=== PATIENT | male | born 1955 | race Caucasian/White ===

== ENCOUNTER 2017-04-06 16:49 | Inpatient (IN) ==
[2017-04-06] MEDS ORDERED: 0.9 % SODIUM CHLORIDE 1,000 ML IV ONE (17:38)
--- NOTE | 2017-04-06 17:53 | Emergency Department Note ---
Weakness HPI - General Chief complaint: Weakness Stated complaint: fall, increase weaknes and confusion Time Seen by Provider: 04/06/17 17:31 Source: patient, EMS Mode of arrival: EMS Limitations: no limitations - History of Present Illness HPI Narrative: 61-year-old male presents by EMS. He has Parkinson's disease. He was found on the kitchen floor of his home around 430 this evening and seems to have fallen around noon today. He has having a lot of falls recently and had a fall yesterday. He states he did not hit his head or lose consciousness. His states that he has been confused and having hallucinations where he is talking to someone that is not there. He has not been eating or drinking while he has been alone at home. He does not have a caregiver during the day while his is at work but his is going to try to get someone in to check up on him. He denies any pain at this time. 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 He denies any shortness of breath or chest pain. He is somewhat somnolent. He responds to commands. He is shaking as he usually does with Parkinson's disease. states she wants him to get checked out because she is concerned. No change in bowel or bladder habits. No cough or cold symptoms. No new change in medications. He does take carbidopa levodopa. - Related Data Home Medications Medication Instructions Recorded Confirmed amantadine HCl 100 mg tablet 100 mg PO QDAY tab 11/02/16 04/06/17 aspirin 81 mg tablet 81 mg PO QDAY 11/02/16 04/06/17 atenolol 50 mg tablet 100 mg PO QAM tab 11/02/16 04/06/17 budesonide 90 mcg/actuation breath 2 inh INHALATION .COMPLEX 11/02/16 04/06/17 activated powder inhaler insulin glargine 100 unit/mL 60 unit SUB-Q BID ml 11/02/16 04/06/17 subcutaneous solution losartan 100 1 tab PO QDAY 11/02/16 04/06/17 mg-hydrochlorothiazide 12.5 mg tablet metformin 500 mg tablet 1,000 mg PO BID 11/02/16 04/06/17 omeprazole 20 mg tablet,delayed 20 mg PO BID 11/02/16 04/06/17 release quetiapine 25 mg tablet 25 mg PO QPM tab 11/02/16 04/06/17 sertraline 100 mg tablet 100 mg PO QDAY 11/02/16 04/06/17 simvastatin 5 mg tablet 2.5 mg PO QPM tab 11/02/16 04/06/17 travoprost 0.004 % eye drops 1 drp OPHTHALMIC QPM 11/02/16 04/06/17 Carbidopa/Levodopa [Carbidopa-Levo 2 each PO TID 04/06/17 04/06/17 25-100 mg Odt] Donepezil [Aricept] 5 mg PO DAILY 04/06/17 04/06/17 Pregabalin [Lyrica] 300 mg PO HS 04/06/17 04/06/17 Torsemide [Demadex] 20 mg PO TID 04/06/17 04/06/17 Allergies Allergy/AdvReac Type Severity Reaction Status Date / Time terbinafine [From Lamisil] AdvReac Vomiting Verified 09/01/15 09:49 Review of Systems All systems ED: reviewed and negative except as stated. Past Medical History - Past Medical History Medical history: Reports: coronary artery disease, diabetes (on insulin long acting), hyperlipidemia, hypertension, other (parkinson's disease) Surgical history ED: Reports: other (Right below the knee amputation) Family history: Reports: non-contributory - Social History smoking status: Never smoker Physical Exam Limitations: no limitations General appearance: in no apparent distress, lethargic, obese Head: atraumatic Eye: Present: normal appearance, PERRL, EOMI. Absent: conjunctival injection ENT: mucous membranes dry, other (small amount of blood on his tongue and lips. thinks he bit his tongue during his fall) Neck: Present: normal inspection, full ROM Chest: Present: normal inspection, symmetric chest wall rise, other (bruise left lateral chest) Respiratory: Present: normal lung sounds bilaterally Cardiovascular: Present: regular rate, normal heart sounds Abdominal: Present: soft, other (obese). Absent: distention, tenderness, guarding : Present: other (Rash in folds of groin and below testicles. This looks like a candidal rash with erythema and satellite lesions) Extremities: Present: other (There are a few abrasions on the left and on the right extremity with some surrounding erythema but no signs of infection. Right [id number] amputation. No pedal edema.) Neurological: Present: alert, oriented X3, CN II-XII intact (Unable to perform all of the exam due to his Parkinson's) Psychiatric: Present: flat affect Skin: Present: warm, dry Course - Reevaluation(s) Reevaluation #1: On arrival the patient's blood sugar was 89. Lab called around 1920 and said his blood sugar was 33. He was then given some apple juice which he very much enjoyed. We also gave him about half a bag of dextrose 5%. His sugar came up to 129. He has been sitting comfortably and able to talk to us well throughout his stay. His labs came back abnormal for acute kidney injury from rhabdomyolysis. Vitals have been stable Time: 07:20 Reevaluation #2: Glucose stable. He will be staying Vital Signs Temperature 97.5 F 04/06/17 16:50 Pulse Rate 76 04/06/17 16:50 Respiratory Rate 22 04/06/17 16:50 Blood Pressure 157/104 04/06/17 16:50 Pulse Oximetry (%) 94 04/06/17 16:50 Temperature 97.5 F 04/06/17 16:50 Pulse Rate 66 04/06/17 20:32 Respiratory Rate 15 04/06/17 20:32 Blood Pressure 114/74 04/06/17 20:32 Pulse Oximetry (%) 98 04/06/17 20:32 Weakness - MDM Narrative Medical decision making narrative: Creatinine elevated at 2.7, BUN elevated 79, CK elevated at 7500. No significant white count. There is some evidence of a UTI on urine dip. He was given 1 g of Rocephin IV. - Lab Data Result diagrams: 04/06/17 17:52 04/06/17 17:52 Lab Results 04/06/17 04/06/17 04/06/17 Range/Units 17:28 17:52 17:52 WBC 10.8 (4.5-11.0) K/mcL RBC 4.47 L (4.50-5.90) M/mcL Hgb 12.1 L (13.5-16.5) g/dL Hct 36.7 L (41.0-55.0) % MCV 82.1 (80.0-100.0) fL MCH 27.2 (26.0-34.0) pg MCHC 33.1 (31.0-36.0) g/dL RDW 16.9 H (11.5-14.5) % Plt Count 139 L (140-440) K/mcL MPV 10.7 H (7.4-10.4) fL Total Counted 100 Seg Neutrophils % 83 H (38-78) % Band Neutrophils % Not Reportable Lymphocytes % 12 L (15-49) % Monocytes % (Manual) 4 (1-12) % Eosinophils % (Manual) 1 (0-7) % Platelet Estimate Decreased A (NORMAL) RBC Morphology Abnorm A (NORMAL) Anisocytosis 1+ A (NONE SEEN) VBG Lactic Acid (0.5-2.2) mmol/L Sodium 146 H (133-145) mmol/L Potassium 4.6 (3.3-5.1) mmol/L Chloride 103 (96-108) mmol/L Carbon Dioxide 24 (22-30) mmol/L Anion Gap 19.0 H (8-16) BUN 79 H (6-20) mg/dl Creatinine 2.7 H (0.7-1.2) mg/dl GFR Calculation 25 Glucose 33 L* (70-105) mg/dL Calcium 9.2 (8.6-10.4) mg/dl Total Bilirubin 0.8 (0.0-1.0) mg/dL AST 79 H (0-37) U/l ALT 27 (0-40) U/l Alkaline Phosphatase 104 (39-117) U/L Total Creatine Kinase (24-195) IU/L NT-Pro-B Natriuret Pep (0-125) pg/ml Total Protein 7.9 (5.9-8.4) gm/dL Albumin 4.3 (3.2-5.2) gm/dL Globulin 3.6 (2.2-3.7) gm/dL Albumin/Globulin Ratio 1.2 (1.0-2.3) Urine Color Yellow Urine Appearance Clear Urine pH 5.0 (5.0-9.0) Ur Specific [place] 1.016 (1.000-1.035) Urine Protein 30 A (NEG) mg/dL Urine Glucose (UA) Negative (NEG) mg/dL Urine Ketones Neg (NEG) mg/dL Urine Occult Blood 0.2 A (<0.03) mg/dL Urine Nitrate Neg (NEG) Urine Bilirubin Neg (NEG) mg/dL Urine Urobilinogen Neg (NEG) mg/dL Ur Leukocyte Esterase 25 A (NEG) /uL Urine RBC 1 (0-1) /hpf Urine WBC 6 H (0-4) /hpf Ur Squamous Epith Cells < 1 (0-4) /hpf Urine Bacteria 0 (0) /hpf Hyaline Casts 4 H (0-2) /lpf Urine Mucus Few (0) /hpf Ur Culture Indicated? Yes 04/06/17 04/06/17 04/06/17 Range/Units 17:52 17:52 18:54 WBC (4.5-11.0) K/mcL RBC (4.50-5.90) M/mcL Hgb (13.5-16.5) g/dL Hct (41.0-55.0) % MCV (80.0-100.0) fL MCH (26.0-34.0) pg MCHC (31.0-36.0) g/dL RDW (11.5-14.5) % Plt Count (140-440) K/mcL MPV (7.4-10.4) fL Total Counted Seg Neutrophils % (38-78) % Band Neutrophils % Lymphocytes % (15-49) % Monocytes % (Manual) (1-12) % Eosinophils % (Manual) (0-7) % Platelet Estimate (NORMAL) RBC Morphology (NORMAL) Anisocytosis (NONE SEEN) VBG Lactic Acid 0.9 (0.5-2.2) mmol/L Sodium (133-145) mmol/L Potassium (3.3-5.1) mmol/L Chloride (96-108) mmol/L Carbon Dioxide (22-30) mmol/L Anion Gap (8-16) BUN (6-20) mg/dl Creatinine (0.7-1.2) mg/dl GFR Calculation Glucose (70-105) mg/dL Calcium (8.6-10.4) mg/dl Total Bilirubin (0.0-1.0) mg/dL AST (0-37) U/l ALT (0-40) U/l Alkaline Phosphatase (39-117) U/L Total Creatine Kinase 7563 H (24-195) IU/L NT-Pro-B Natriuret Pep 8681.0 H (0-125) pg/ml Total Protein (5.9-8.4) gm/dL Albumin (3.2-5.2) gm/dL Globulin (2.2-3.7) gm/dL Albumin/Globulin Ratio (1.0-2.3) Urine Color Urine Appearance Urine pH (5.0-9.0) Ur Specific [place] (1.000-1.035) Urine Protein (NEG) mg/dL Urine Glucose (UA) (NEG) mg/dL Urine Ketones (NEG) mg/dL Urine Occult Blood (<0.03) mg/dL Urine Nitrate (NEG) Urine Bilirubin (NEG) mg/dL Urine Urobilinogen (NEG) mg/dL Ur Leukocyte Esterase (NEG) /uL Urine RBC (0-1) /hpf Urine WBC (0-4) /hpf Ur Squamous Epith Cells (0-4) /hpf Urine Bacteria (0) /hpf Hyaline Casts (0-2) /lpf Urine Mucus (0) /hpf Ur Culture Indicated? Disposition Pt seen by [employer]/PA only: Yes Clinical Impression: Rhabdomyolysis, Dehydration, Hypoglycemia Disposition: Xfer As Inpt ([facility]) Condition: Fair Referrals: Sada Bernard ARNP [Primary Care Provider] -
--- NOTE | 2017-04-06 17:59 | XRay Report ---
CLINICAL INFORMATION: Weakness COMPARISON: None. FINDINGS: The heart is mildly enlarged. Mediastinum and pulmonary vessels are normal. Lungs are clear. No effusions. IMPRESSION: Mild cardiomegaly. No acute disease Interpreted and Authenticated by: Abdelrahman Garcia 04/06/17
[2017-04-06 18:05] LABS: Appearance,Urine CLEAR; Bacteria,Urine 0 /hpf (0); Bilirubin,Urine NEG (NEG); Color,Urine YELLOW; Glucose,Urine (UA) NEGATIVE (NEG); Leukocyte Esterase,Urine 25 /uL (NEG); Mucus,Urine FEW /hpf (0); Nitrate,Urine NEG (NEG); Protein,Urine 30 mg/dL (NEG); Specific Gravity,Urine 1.016 (1.000-1.035); Urine Blood 0.2 mg/dL (<0.03); Urine Hyaline Cast 4 /lpf (0-2); Urine RBC 1 /hpf (0-1); Urine Squamous Epithelial Cell < 1 /hpf (0-4); Urine WBC 6 /hpf (0-4); Urobilinogen,Urine NEG (NEG)
[2017-04-06 18:30] LABS: Mean Cell Volume 82.1 fL (80.0-100.0); Mean Corpuscular HGB Conc 33.1 g/dL (31.0-36.0); Mean Corpuscular Hemoglobin 27.2 pg (26.0-34.0); Platelet Count 139 K/mcL (140-440); RBC 4.47 M/mcL (4.50-5.90); Red Cell Distribution Width 16.9 % (11.5-14.5)
[2017-04-06] MEDS ORDERED: cefTRIAXone 1 GM VIAL IV ONE (18:40)
[2017-04-06 18:57] LABS: ALT/SGPT 27 U/l (0-40); Albumin 4.3 gm/dL (3.2-5.2); Albumin/Globulin Ratio 1.2 (1.0-2.3); Alkaline Phosphatase 104 U/L (39-117); Blood Urea Nitrogen 79 mg/dl (6-20)
[2017-04-06 19:09] LABS: Creatine Kinase 7563 IU/L (24-195)
[2017-04-06 19:14] LABS: Anisocytosis 1+ (NONE SEEN); Eosinophils % (Manual) 1 % (0-7); Lymphocytes % 12 % (15-49); Monocytes % (Manual) 4 % (1-12); Platelet Estimate DECREASED (NORMAL); RBC Morphology ABNORM (NORMAL); Segmented Neutrophils % 83 % (38-78)
--- NOTE | 2017-04-06 21:43 | Internal Med History&Physical ---
Medical - H&P: [facility] Patient information: Note initiated : 04/06/17 at 9:38 pm Service Date, if different from initiated Date: [] Patient: Abdelrahman Henriquez 61 y/o M admitted on 04/06/17 for fall, increase weaknes and confusion. Chief Complaint: [] History of present illness: Mr. Henriquez is a 61 year old Male with h/o dementia, parkinsons disease (5-6 yrs) , wheel chair bound, presents to the ER today after 2-3 days of not feeling well at bedside who provided most of the history The patient was apparently in his usual health 3 days ago when his condition started to worsen, his oral intake declined, she noticed that he was having hallucinations (talking with grand child who was not there in the room). The patient has had several episodes of witnessed and unwitnessed falls. He had 2 falls yesterday and 2 falls today. When his returned home today she noticed that he was found face down on the floor. He denied any other issues or complaints, no pain in joints or head injury. He does have urinary issues, and can develop incontinence. NO abnormal seizure like movements noted. In the ER his labs showed mildly elevated wbc at 10.87, worsening renal function , creat of 2.7 (normal in past), low glucose of 33, elevated bun 79, CK 7563, elevated bnp, CXR showed cardiomegaly. no infiltrate ua suggesitive of uti The patient was therefore admitted to the hospital for further management. All systems: reviewed and no additional remarkable complaints except as stated ( denies any complaints, but wass sleeping during most of my questioning.) Medical - H&P: [facility] Medical history: Medical History Rhabdomyolysis (Acute) Dehydration (Acute) Hypoglycemia (Acute) History of echocardiogram (Chronic 06/27/16) History of diagnostic ultrasound (Chronic 06/27/16) Paresthesia (Chronic) Weakness (Chronic) Heartburn (Chronic) Hyperlipidemia (Chronic) Parkinson's disease (Chronic) Sciatica of left side (Chronic) HTN (hypertension) (Chronic) Diabetes mellitus, type II (Chronic) Depression (Chronic) GERD (gastroesophageal reflux disease) (Chronic) Pneumonia (Chronic) Diabetic peripheral neuropathy (Chronic) Mixed incontinence urge and stress (Chronic) Laceration (Chronic) Surgical history: Past Surgical History History of appendectomy (Chronic) Pertinent family history: Family History Other No pertinent family history dad with bladder cancer bother with lung cancer Social history: lives with non smoker very rare etoh denies recreational substance use. Medical - H&P: Meds Home Medications Medication Instructions Recorded Confirmed Type amantadine HCl 100 mg tablet 100 mg PO QDAY tab 11/02/16 04/06/17 History aspirin 81 mg tablet 81 mg PO QDAY 11/02/16 04/06/17 History atenolol 50 mg tablet 100 mg PO QAM tab 11/02/16 04/06/17 History budesonide 90 mcg/actuation breath 2 inh INHALATION .COMPLEX 11/02/16 04/06/17 History activated powder inhaler insulin glargine 100 unit/mL 60 unit SUB-Q BID ml 11/02/16 04/06/17 History subcutaneous solution losartan 100 1 tab PO QDAY 11/02/16 04/06/17 History mg-hydrochlorothiazide 12.5 mg tablet metformin 500 mg tablet 1,000 mg PO BID 11/02/16 04/06/17 History omeprazole 20 mg tablet,delayed 20 mg PO BID 11/02/16 04/06/17 History release quetiapine 25 mg tablet 25 mg PO QPM tab 11/02/16 04/06/17 History sertraline 100 mg tablet 100 mg PO QDAY 11/02/16 04/06/17 History simvastatin 5 mg tablet 2.5 mg PO QPM tab 11/02/16 04/06/17 History travoprost 0.004 % eye drops 1 drp OPHTHALMIC QPM 11/02/16 04/06/17 History Carbidopa/Levodopa [Carbidopa-Levo 2 each PO TID 04/06/17 04/06/17 History 25-100 mg Odt] Donepezil [Aricept] 5 mg PO DAILY 04/06/17 04/06/17 History Pregabalin [Lyrica] 300 mg PO HS 04/06/17 04/06/17 History Torsemide [Demadex] 20 mg PO TID 04/06/17 04/06/17 History Allergies Allergy/AdvReac Type Severity Reaction Status Date / Time terbinafine [From Lamisil] AdvReac Vomiting Verified 09/01/15 09:49 Medical - H&P: Exam - Constitutional Vitals: Temp Pulse Resp BP Pulse Ox 97.5 F 67 14 108/83 97 11/22/17 16:50 04/06/17 21:01 04/06/17 21:01 04/06/17 21:01 04/06/17 21:01 Exam: GENERAL: The patient is a well-developed, well-nourished in no apparent distress. Is alert and oriented x1. VITAL SIGNS: Reviewed and as noted elsewhere. HEENT: Head is normocephalic and atraumatic. Extraocular muscles are intact. Pupils are equal, round, and reactive to light. Nares appeared normal. Mouth appears any without lesions. Mucous membranes are dry, some hyperpigemtation of lips. NECK: Normal to inspection, Supple, No lymphadenopathy or thyromegaly. LUNGS: Air entry equal on both sides, no wheezing, crackles or rhonchi noted. No accessory muscles of respiration HEART: Regular rate and rhythm normal, S1 and S2 heard, no Gallop, S3 or Rub Noted, No Gross murmur heard. ABDOMEN: Soft, nontender, and nondistended. Positive bowel sounds. No hepatosplenomegaly was noted. EXTREMITIES: No cyanosis, clubbing, rash, lesions or edema. Right BKA noted. left leg has toe amputaiton? NEUROLOGIC: Cranial nerves II through XII are grossly intact. Motor and Sensory System Grossly Intact PSYCHIATRIC: Normal mood, flat affect. SKIN: jose luis inguinal rash, from ann-marie, overal skin has multiple hyperkeratotic lesions/ actinic keratosis, No ulceration or wounds noted, No jaundice noted. Medical - H&P: Reslt - Labs CBC & Chem 7: 04/06/17 17:52 04/06/17 17:52 Labs: Short CBC 04/06/17 Range/Units 17:52 WBC 10.8 (4.5-11.0) K/mcL Hgb 12.1 L (13.5-16.5) g/dL Hct 36.7 L (41.0-55.0) % Plt Count 139 L (140-440) K/mcL BMP 04/06/17 17:52 Sodium 146 H Potassium 4.6 Chloride 103 Carbon Dioxide 24 BUN 79 H Creatinine 2.7 H Glucose 33 L* Calcium 9.2 Cardiac Enzymes 04/06/17 Range/Units 17:52 Total Creatine Kinase 7563 H (24-195) IU/L Liver Function 04/06/17 Range/Units 17:52 Total Bilirubin 0.8 (0.0-1.0) mg/dL AST 79 H (0-37) U/l ALT 27 (0-40) U/l Alkaline Phosphatase 104 (39-117) U/L Albumin 4.3 (3.2-5.2) gm/dL Urine 04/06/17 Range/Units 17:28 Urine Color Yellow Urine Appearance Clear Urine pH 5.0 (5.0-9.0) Ur Specific [place] 1.016 (1.000-1.035) Urine Protein 30 A (NEG) mg/dL Urine Glucose (UA) Negative (NEG) mg/dL Medical - H&P: A/P - Narrative A/P Narrative: A/P acute kidney injury: due to poor intake, use of diuretic,s julieth inhibitors, hold both, IV fluids, not sure if elevated ck is playing a role, get renal sonogram, place [facility]. GEt urine studies if patient does not respond UTI: ua suggestive of UTI, pt has urinary urgency, was smelling of urine in the ER, place [facility], iv rocephin, await urine culture CK/ rhabdomyolysis: due to repeated falls , and lying on the floor, IV fluids for now, trend CK, monitor I/o try to keep urine output around 100cc/hr , given elevation of bnp. Repeated falls: due to UTI, dehydration as well as s/p bka and Parkinson disease (missed meds apparently today), get CT head as he is on asa and has had multiple unwitnessed falls, get pelvis x ray. DM: glucose low, due to use of Lantus and poor intake, repeat glucose is normal in ther er, monitor for now, hold Lantus use sliding scale insulin use [id number] solution for now, switch to ns only in AM once lantus effect is out of the patients body Parkinsonism disease: resume home medications and monitor Hallucinations/ Delirium: likely multifactorial, related to UTI, monitor for now treat underlying metabolic issues. DvT hep sq DNR Diabetic cardiac diet.
[2017-04-06] MEDS ORDERED: NALOXONE HCL 0.4 MG/ML VIAL IV PRN (22:03)
[2017-04-06] MEDS ORDERED: DEXTROSE 31 GM ORAL.SUSP PO PRN (22:03)
[2017-04-06] MEDS ORDERED: ONDANSETRON 4 MG/2 ML VIAL IV PRN (22:03)
[2017-04-06] MEDS ORDERED: oxyCODONE/APAP 5/325MG TABLET PO PRN (22:03)
[2017-04-06] MEDS ORDERED: ACETAMINOPHEN 325 MG TABLET PO PRN (22:03)
[2017-04-06] MEDS ORDERED: DEXTROSE 50% 50 ML VIAL IV PRN (22:03)
[2017-04-06] MEDS: INSULIN LISPRO 1 UNIT/0.01 ML UNIT SQ SCH (22:15)
[2017-04-07] MEDS: TRAVOPROST OPHTH DROPS BOTTLE 2.5ML OU SCH ×2 (00:23→20:46)
[2017-04-07] MEDS: PREGABALIN 150 MG CAPSULE PO SCH ×2 (00:40→20:50)
[2017-04-07] MEDS: HEPARIN 5,000 UNIT/ML VIAL SQ SCH ×3 (00:40→20:45)
[2017-04-07] MEDS: SIMVASTATIN 10 MG TABLET PO SCH ×2 (00:41→20:44)
[2017-04-07] MEDS: CARBIDOPA/LEVODOPA 25/100 TABLET PO SCH ×4 (00:41→20:50)
[2017-04-07] MEDS: QUEtiapine 25 MG TABLET PO SCH ×2 (00:41→20:46)
[2017-04-07] MEDS: IPRATROPIUM/ALBUTEROL 3 ML AMPUL.NEB NEB SCH ×4 (00:42→19:18)
[2017-04-07] MEDS: DEXTROSE 5%-NS 1,000 ML IV SCH ×3 (00:42→07:29)
[2017-04-07 05:52] LABS: Basophils # (Auto) 0 K/mcL (0.0-0.3); Basophils % (Auto) 0.4 % (0.0-2.0); Eosinophils # (Auto) 0.1 K/mcL (0.0-0.7); Eosinophils % (Auto) 1.3 % (0.0-7.0); Granulocytes % (Auto) 75.5 % (38.0-78.0); Lymphocytes # (Auto) 0.9 K/mcL (1.5-4.8); Lymphocytes % (Auto) 13.8 % (15.5-49.0); Mean Cell Volume 82.4 fL (80.0-100.0); Mean Corpuscular HGB Conc 33.5 g/dL (31.0-36.0); Mean Corpuscular Hemoglobin 27.6 pg (26.0-34.0); Monocytes # (Auto) 0.6 K/mcL (0.1-0.9); Platelet Count 107 K/mcL (140-440); RBC 3.97 M/mcL (4.50-5.90); Red Cell Distribution Width 16.9 % (11.5-14.5)
[2017-04-07 06:04] LABS: ALT/SGPT < 5 U/l (0-40); Albumin 3.8 gm/dL (3.2-5.2); Albumin/Globulin Ratio 1.1 (1.0-2.3); Alkaline Phosphatase 96 U/L (39-117); Bilirubin,Direct < 0.2 mg/dL (0.0-0.3); Blood Urea Nitrogen 72 mg/dl (6-20); Gamma Glutamyl Transpeptidase 29 U/L (8-61); Magnesium 2.8 mg/dL (1.6-2.5); Uric Acid 14.8 mg/dL (2.5-8.0)
[2017-04-07] MEDS: PANTOPRAZOLE 40 MG TABLET PO SCH (07:20)
[2017-04-07] MEDS: INSULIN LISPRO 1 UNIT/0.01 ML UNIT SQ SCH ×4 (07:26→20:45)
--- NOTE | 2017-04-07 07:27 | Cat Scan Report ---
CLINICAL INFORMATION: Trauma COMPARISON: None. TECHNIQUE: 2.5 mm helical slices were obtained in the skull base to vertex. Following reconstruction, axial reformatted images were reviewed at bone and parenchymal windows. The exam was performed using radiation dose optimization techniques including, but not limited to, automated exposure control, adjustment of the mA and/or kV according to patient size and use of iterative reconstruction technique. FINDINGS: The ventricles, sulci, fissures, and cisterns are symmetrically enlarged compatible with mild atrophy - no extra-axial fluid collection or masses appreciated. Patchy chronic ischemic changes are noted in deep cerebral white matter. No intracerebral hemorrhage, mass effect edema, or other acute finding. Bone windows show no osseous abnormality. Moderate cerumen is noted in both external auditory meatus regions. IMPRESSION: Mild atrophy and chronic ischemic changes in the deep cerebral white matter. There is no hemorrhage or other acute intracerebral abnormality. Interpreted and Authenticated by: Abdelrahman Garcia 04/07/17
[2017-04-07] MEDS ORDERED: 0.9 % SODIUM CHLORIDE 1,000 ML IV ONE (07:32)
--- NOTE | 2017-04-07 07:36 | Cat Scan Report ---
CLINICAL INFORMATION: Trauma COMPARISON: None. TECHNIQUE: 2.5 mm helical slices were obtained from the mid L4 through the subtrochanteric regions. Following reconstruction, 2.5 mm sagittal, coronal and axial reformations were processed. The exam was reviewed in bone and soft tissue windows. The exam was performed using radiation dose optimization techniques including, but not limited to, automated exposure control, adjustment of mA and/or kV according to patient size and use of iterative reconstruction technique. FINDINGS: There is no fracture or other significant osseous abnormality. There is only minimal degenerative change of both SI and hip joints with prominent bridging osteophyte in the anterior left SI joint. Urinary bladder, prostate, seminal vesicles and visualized bowel are normal. There is no free air, free fluid or abnormally enlarged lymph nodes. There is a 15 mm cyst in the left false pelvis. Muscle and fascial planes are unremarkable IMPRESSION: 1. No fracture or other significant abnormality Interpreted and Authenticated by: Abdelrahman Garcia 04/07/17
[2017-04-07] MEDS ORDERED: PNEUMOCOCCAL 23-VAL P-SAC VAC 0.5 ML VIAL IM ONE (10:00)
[2017-04-07] MEDS ORDERED: FLU VACC QS2017-18 36MOS UP/PF 60 MCG/0.5 ML SYRINGE IM ONE (10:00)
[2017-04-07] MEDS: SERTRALINE 100 MG TABLET PO SCH (10:35)
[2017-04-07] MEDS: ASPIRIN 81 MG TAB.CHEW PO SCH (10:35)
[2017-04-07] MEDS: ATENOLOL 50 MG TABLET PO SCH (10:35)
[2017-04-07] MEDS: DONEPEZIL 10 MG TABLET PO SCH (10:35)
[2017-04-07] MEDS: AMANTADINE HCL 100 MG CAPSULE PO SCH (10:35)
[2017-04-07] MEDS: BUDESONIDE 1 PUFF INHALER INH SCH ×2 (10:42→20:46)
[2017-04-07] MEDS: cefTRIAXone 1 GM VIAL IV SCH (10:42)
--- NOTE | 2017-04-07 13:09 | Internal Med Progress Note ---
Medical - PN: Subj Patient information: Note initiated : 04/07/17 at 12:57 pm Service Date, if different from initiated Date: [] Patient: Abdelrahman Henriquez 61 y/o M admitted on 04/06/17 for fall, increase weaknes and confusion. Chief Complaint: [] Interval history: Mr. Henriquez is a 61 year old Male with h/o dementia, parkinsons disease (5-6 yrs) , wheel chair bound, presents to the ER today after 2-3 days of not feeling well at bedside who provided most of the history The patient was apparently in his usual health 3 days ago when his condition started to worsen, his oral intake declined, she noticed that he was having hallucinations (talking with grand child who was not there in the room). The patient has had several episodes of witnessed and unwitnessed falls. He had 2 falls yesterday and 2 falls today. When his returned home today she noticed that he was found face down on the floor. He denied any other issues or complaints, no pain in joints or head injury. He does have urinary issues, and can develop incontinence. NO abnormal seizure like movements noted. In the ER his labs showed mildly elevated wbc at 10.87, worsening renal function , creat of 2.7 (normal in past), low glucose of 33, elevated bun 79, CK 7563, elevated bnp, CXR showed cardiomegaly. no infiltrate ua suggesitive of uti The patient was therefore admitted to the hospital for further management. Apr 07 patient seen examined no acute overnight issues, labs this AM show worsening CK, IV bolus saline given recheck this afternoon. creat improving pt mental status much better, sitting comfortably in chair, answered questions, did not remember much of last night, thinks his has left him othewise denies any acute complaints. Was able to eat his breakfast. CT head and CT pelvis neg for acute pathology Pertinent ROS: Denies headache, dizziness Denies chest pain, palpitations Denies cough or shortness of breath Denies abdominal pain, nausea or vomiting. - Constitutional Vitals: Vital Signs Temp Pulse Resp BP Pulse Ox 98.4 F 78 16 103/85 96 04/07/17 11:56 04/07/17 11:56 04/07/17 11:56 04/07/17 11:56 04/07/17 11:56 Period Temp Pulse Resp BP Sys/Leung Pulse Ox Last 24 Hr 96.8 F-99.2 F 60-78 14-22 103-159/61-107 92-100 Intake and Output 04/06/17 04/07/17 04/07/17 21:59 05:59 13:59 Intake Total 1000 / 1000 530 / 530 1000 / 1000 Output Total 1001 / 1001 400 / 400 Balance 1000 / 1000 -471 / -471 600 / 600 Weight 232 lb 232 lb Intake & Output: Intake & Output 04/06/17 04/07/17 04/07/17 21:59 05:59 13:59 Intake Total 1000 / 1000 530 / 530 1000 / 1000 Output Total 1001 / 1001 400 / 400 Balance 1000 / 1000 -471 / -471 600 / 600 Weight 232 lb 232 lb Intake: IV 1000 / 1000 1000 / 1000 Sodium Chloride 0.9% 1,000 ml @ 1000 / 1000 Wide Open IV BOLUS ONE Rx#: [id number] Dextrose 5%-Ns IV Solution 1, 1000 / 1000 000 ml @ 125 mls/hr IV .Q8H [facility] Rx#:[id number] Oral 530 / 530 Output: Urine Catheter Amount 1000 / 1000 400 / 400 # of times incontinent of urine Other: Meal peanutbutter sandwich Percent of Meal Consumed 100% Feeding Ability Assist with Tray Set Up Exam: Constitutional; Afebrile, cooperative, alert, not in distress. Eyes- No icterus, , No periorbital swelling Ears- Ext ear normal, hearing normal to conversation. Neck- Midline trachea, supple Respiratory system: Air Entry equal on both sides, No crackles or wheezing, no rhonchi. CVS- Rate rhythm regular, S1,S2 heard, no gallop, no rub. 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 has some tremors from parkinsons Medical - PN: Obj Da - Labs CBC & Chem 7: 04/07/17 03:31 04/07/17 03:31 Labs: Abnormal Lab Results 04/07/17 04/07/17 04/07/17 03:31 03:31 03:31 RBC 3.97 L Hgb 11.0 L Hct 32.7 L RDW 16.9 H Plt Count 107 L MPV 11.1 H Lymph % (Auto) 13.8 L Lymph # (Auto) 0.9 L Seg Neutrophils % Lymphocytes % Platelet Estimate RBC Morphology Anisocytosis Sodium Anion Gap BUN 72 H Creatinine 2.4 H Glucose Uric Acid 14.8 H Phosphorus 4.6 H Magnesium 2.8 H AST 121 H Lactate Dehydrogenase 593 H Total Creatine Kinase 94726 H NT-Pro-B Natriuret Pep Triglycerides 204 H Urine Protein Urine Occult Blood Ur Leukocyte Esterase Urine WBC Hyaline Casts 04/06/17 04/06/17 04/06/17 17:52 17:52 17:52 RBC Hgb Hct RDW Plt Count MPV Lymph % (Auto) Lymph # (Auto) Seg Neutrophils % Lymphocytes % Platelet Estimate RBC Morphology Anisocytosis Sodium 146 H Anion Gap 19.0 H BUN 79 H Creatinine 2.7 H Glucose 33 L* Uric Acid Phosphorus Magnesium AST 79 H Lactate Dehydrogenase Total Creatine Kinase 7563 H NT-Pro-B Natriuret Pep 8681.0 H Triglycerides Urine Protein Urine Occult Blood Ur Leukocyte Esterase Urine WBC Hyaline Casts 04/06/17 04/06/17 17:52 17:28 RBC 4.47 L Hgb 12.1 L Hct 36.7 L RDW 16.9 H Plt Count 139 L MPV 10.7 H Lymph % (Auto) Lymph # (Auto) Seg Neutrophils % 83 H Lymphocytes % 12 L Platelet Estimate Decreased A RBC Morphology Abnorm A Anisocytosis 1+ A Sodium Anion Gap BUN Creatinine Glucose Uric Acid Phosphorus Magnesium AST Lactate Dehydrogenase Total Creatine Kinase NT-Pro-B Natriuret Pep Triglycerides Urine Protein 30 A Urine Occult Blood 0.2 A Ur Leukocyte Esterase 25 A Urine WBC 6 H Hyaline Casts 4 H Meds: Medications Acetaminophen (Tylenol) 650 mg PO Q6HP PRN PRN Reason: PAIN/FEVER > 101 Albuterol/Ipratropium (Duoneb) 3 ml NEB Q6HRT [facility] Last Admin: 04/07/17 07:08 Dose: 3 ml Amantadine HCl (Amantadine) 100 mg PO QAM [facility] Last Admin: 04/07/17 10:35 Dose: 100 mg Aspirin (Aspirin) 81 mg PO DAILY [facility] Last Admin: 04/07/17 10:35 Dose: 81 mg Atenolol (Tenormin) 100 mg PO DAILY [facility] Last Admin: 04/07/17 10:35 Dose: 100 mg Budesonide (Pulmicort) 2 puff INH BID [facility] Last Admin: 04/07/17 10:42 Dose: Not Given Carbidopa/Levodopa (Sinemet 25/100) 2 tab PO TID [facility] Last Admin: 04/07/17 10:35 Dose: 2 tab Ceftriaxone Sodium (Rocephin) 1 gm IV Q24H [facility] Last Admin: 04/07/17 10:42 Dose: 1 gm Dextrose (Dextrose 50%) 0 ml IV UD PRN PRN Reason: Hypoglycemia Diagnostic Test (Pha) (Accu-Chek) 1 each FS ACHS [facility] Last Admin: 04/07/17 11:42 Dose: 1 each Donepezil HCl (Aricept) 5 mg PO DAILY [facility] Last Admin: 04/07/17 10:35 Dose: 5 mg Glucose (Insta-Glucose) 15 gm PO PRN PRN PRN Reason: Hypoglycemia Heparin Sodium (Porcine) (Heparin) 5,000 unit SQ Q12 [facility] Last Admin: 04/07/17 10:35 Dose: 5,000 unit Dextrose/Sodium Chloride (Dextrose 5%-Ns Iv Solution) 1,000 mls @ 125 mls/hr IV .Q8H [facility] Last Admin: 04/07/17 07:29 Dose: 125 mls/hr Insulin Human Lispro (Humalog) 0 unit SQ [facility] PRN Reason: Protocol Last Admin: 04/07/17 12:16 Dose: 3 unit Naloxone HCl (Narcan) 0.1 mg IV Q2MIN PRN PRN Reason: Opiate Reversal Ondansetron HCl (Zofran) 4 mg IV Q4HP PRN PRN Reason: Nausea And Vomiting Oxycodone/Acetaminophen (Percocet 5-325 Mg) 1 tab PO Q4HP PRN PRN Reason: PAIN LEVEL 3-6 Pantoprazole Sodium (Protonix) 40 mg PO QAMAC [facility] Last Admin: 04/07/17 07:20 Dose: 40 mg Pregabalin (Lyrica) 300 mg PO HS [facility] Last Admin: 04/07/17 00:40 Dose: 300 mg Quetiapine Fumarate (Seroquel) 25 mg PO QPM [facility] Last Admin: 04/07/17 00:41 Dose: 25 mg Sertraline HCl (Zoloft) 100 mg PO QDAY [facility] Last Admin: 04/07/17 10:35 Dose: 100 mg Simvastatin (Zocor) 2.5 mg PO HS [facility] Last Admin: 04/07/17 00:41 Dose: 2.5 mg Travoprost (Travatan Z Ophth Drops) 1 gtt OU QPM [facility] Last Admin: 04/07/17 00:23 Dose: Not Given Medical - PN: A/P - Time Spent With Patient Total time spent is greater than 50% in coordination of care (as documented) at patient's floor/unit and/or counseling patient: - Narrative A/P Narrative: A/P acute kidney injury: due to poor intake, use of diuretic,s julieth inhibitors, on IVF, hold nephrotoxic meds, renal function improving slowly, good urine output so far. UTI: ua suggestive of UTI, pt has urinary urgency, was smelling of urine in the ER, place adams, iv rocephin, await urine culture CK/ rhabdomyolysis: due to repeated falls , and lying on the floor, IV fluids for now, trend CK, CK worse this AM, give another saline bolus, recheck this PM , pt has good urine output so far. Repeated falls: due to UTI, dehydration as well as s/p bka and Parkinson disease (missed meds apparently today), PT/ OT eval DM: glucose better now, tolerating po well, d/c d5ns and swtich to NS only, sliding scale insulin for now, resume home lantus as appropriate. Parkinsonism disease: resume home medications and monitor Hallucinations/ Delirium: likely multifactorial, related to UTI, monitor for now treat underlying metabolic issues, has some paranoid features this AM, will see if improves, could be underying demetia/ parkinsons related. . DvT hep sq DNR Diabetic cardiac diet. Medical - PN: Qual - VTE Deep Vein Thrombosis/Pulmonary Embolism Present on Admission: No
[2017-04-07 14:24] LABS: Blood Urea Nitrogen 61 mg/dl (6-20)
[2017-04-07 14:33] LABS: Creatine Kinase 14239 IU/L (24-195)
[2017-04-07] MEDS: 0.9 % SODIUM CHLORIDE 1,000 ML IV SCH ×2 (15:18→23:00)
--- NOTE | 2017-04-07 15:22 | Ultrasound Report ---
CLINICAL INFORMATION: Renal failure COMPARISON: None. FINDINGS: Both kidneys are normal and symmetric in size, position and configuration: The right is 12.2 x 6 cm and the left is 12 x 6 cm. Renal echotexture is mildly elevated compatible with medical renal disease. No solid/cystic lesions or evidence of hydronephrosis. Mayo catheter is in place decompressing the urinary bladder - no gross abnormalities IMPRESSION: Elevated renal parenchymal echotexture compatible with medical renal disease Interpreted and Authenticated by: Abdelrahman Garcia 04/07/17
[2017-04-07] MEDS ORDERED: cefTRIAXone 1 GM in DEXTROSE 5% IN WATER 50 ML IV SCH (20:15)
[2017-04-08] MEDS: IPRATROPIUM/ALBUTEROL 3 ML AMPUL.NEB NEB SCH ×4 (01:16→18:37)
[2017-04-08 06:13] LABS: ALT/SGPT 6 U/l (0-40); Albumin 3.4 gm/dL (3.2-5.2); Albumin/Globulin Ratio 1.1 (1.0-2.3); Alkaline Phosphatase 97 U/L (39-117); Bilirubin,Direct < 0.2 mg/dL (0.0-0.3); Blood Urea Nitrogen 47 mg/dl (6-20); Gamma Glutamyl Transpeptidase 34 U/L (8-61); Magnesium 2.5 mg/dL (1.6-2.5); Uric Acid 11.1 mg/dL (2.5-8.0)
[2017-04-08 06:26] LABS: Basophils # (Auto) 0 K/mcL (0.0-0.3); Basophils % (Auto) 0.8 % (0.0-2.0); Eosinophils # (Auto) 0.1 K/mcL (0.0-0.7); Eosinophils % (Auto) 1.7 % (0.0-7.0); Granulocytes % (Auto) 55.9 % (38.0-78.0); Lymphocytes # (Auto) 1.4 K/mcL (1.5-4.8); Lymphocytes % (Auto) 29.7 % (15.5-49.0); Mean Cell Volume 83.8 fL (80.0-100.0); Mean Corpuscular HGB Conc 33.3 g/dL (31.0-36.0); Mean Corpuscular Hemoglobin 27.9 pg (26.0-34.0); Monocytes # (Auto) 0.5 K/mcL (0.1-0.9); Monocytes % (Auto) 11.9 % (1.0-12.0); Platelet Count 85 K/mcL (140-440); RBC 3.57 M/mcL (4.50-5.90); Red Cell Distribution Width 17.1 % (11.5-14.5)
[2017-04-08] MEDS: 0.9 % SODIUM CHLORIDE 1,000 ML IV SCH ×2 (07:07→18:13)
[2017-04-08] MEDS: INSULIN LISPRO 1 UNIT/0.01 ML UNIT SQ SCH ×4 (07:08→20:59)
[2017-04-08] MEDS: PANTOPRAZOLE 40 MG TABLET PO SCH (07:33)
[2017-04-08] MEDS: DONEPEZIL 10 MG TABLET PO SCH (08:59)
[2017-04-08] MEDS: AMANTADINE HCL 100 MG CAPSULE PO SCH (08:59)
[2017-04-08] MEDS: SERTRALINE 100 MG TABLET PO SCH (09:00)
[2017-04-08] MEDS: CARBIDOPA/LEVODOPA 25/100 TABLET PO SCH ×3 (09:00→20:16)
[2017-04-08] MEDS: ASPIRIN 81 MG TAB.CHEW PO SCH (09:00)
[2017-04-08] MEDS: ATENOLOL 50 MG TABLET PO SCH (09:00)
[2017-04-08] MEDS: HEPARIN 5,000 UNIT/ML VIAL SQ SCH ×2 (09:00→20:17)
[2017-04-08] MEDS: cefTRIAXone 1 GM VIAL IV SCH (09:35)
[2017-04-08] MEDS ORDERED: QUEtiapine 25 MG TABLET PO SCH (09:36)
--- NOTE | 2017-04-08 09:41 | Internal Med Progress Note ---
Medical - PN: Subj Patient information: Note initiated : 04/08/17 at 9:36 am Service Date, if different from initiated Date: [] Patient: Abdelrahman Henriquez 61 y/o M admitted on 04/06/17 for fall, increase weaknes and confusion. Chief Complaint: [] Interval history: Mr. Henriquez is a 61 year old Male with h/o dementia, parkinsons disease (5-6 yrs) , wheel chair bound, presents to the ER today after 2-3 days of not feeling well at bedside who provided most of the history The patient was apparently in his usual health 3 days ago when his condition started to worsen, his oral intake declined, she noticed that he was having hallucinations (talking with grand child who was not there in the room). The patient has had several episodes of witnessed and unwitnessed falls. He had 2 falls yesterday and 2 falls today. When his returned home today she noticed that he was found face down on the floor. He denied any other issues or complaints, no pain in joints or head injury. He does have urinary issues, and can develop incontinence. NO abnormal seizure like movements noted. In the ER his labs showed mildly elevated wbc at 10.87, worsening renal function , creat of 2.7 (normal in past), low glucose of 33, elevated bun 79, CK 7563, elevated bnp, CXR showed cardiomegaly. no infiltrate ua suggesitive of uti The patient was therefore admitted to the hospital for further management. Apr 07 patient seen examined no acute overnight issues, labs this AM show worsening CK, IV bolus saline given recheck this afternoon. creat improving pt mental status much better, sitting comfortably in chair, answered questions, did not remember much of last night, thinks his has left him othewise denies any acute complaints. Was able to eat his breakfast. CT head and CT pelvis neg for acute pathology Apr 08 patient seen examined, sitting comfortably in the chair has no acute concerns still has significant hallucinations, some one trying to kill him? watching ghosts as in cartoons, his bed taking him for a ride Has no self harm feelins at this time Plan to increase dose of seroquel to 50qpm and see how he does his creat is trending down, ck is at 11K today, He is tolerating IV well Pertinent ROS: Denies headache, dizziness Denies chest pain, palpitations Denies cough or shortness of breath Denies abdominal pain, nausea or vomiting. - Constitutional Vitals: Vital Signs Temp Pulse Resp BP Pulse Ox 96.8 F L 71 18 138/79 99 04/08/17 06:35 04/08/17 04:00 04/08/17 06:35 04/08/17 06:35 04/08/17 06:35 Period Temp Pulse Resp BP Sys/Leung Pulse Ox Last 24 Hr 96.8 F-98.5 F 69-78 16-20 103-138/56-89 96-100 Intake and Output 04/07/17 04/08/17 04/08/17 21:59 05:59 13:59 Intake Total 1327 / 1327 963 / 963 1000 / 1000 Output Total 600 / 600 1050 / 1050 Balance 727 / 727 -87 / -87 1000 / 1000 Weight 240 lb Intake & Output: Intake & Output 04/07/17 04/08/17 04/08/17 21:59 05:59 13:59 Intake Total 1327 / 1327 963 / 963 1000 / 1000 Output Total 600 / 600 1050 / 1050 Balance 727 / 727 -87 / -87 1000 / 1000 Weight 240 lb Intake: IV 977 / 977 963 / 963 1000 / 1000 Sodium Chloride 0.9% 1,000 ml @ 963 / 963 1000 / 1000 125 mls/hr IV .Q8H [facility] Rx#: [id number] Oral 350 / 350 Output: Urine Catheter Amount 600 / 600 1050 / 1050 Other: Meal Dinner Percent of Meal Consumed 100% Exam: Constitutional; Afebrile, cooperative, alert, not in distress. Eyes- No icterus, , No periorbital swelling Ears- Ext ear normal, hearing normal to conversation. Neck- Midline trachea, supple Respiratory system: Air Entry equal on both sides, No crackles or wheezing, no rhonchi. CVS- Rate rhythm regular, S1,S2 heard, no gallop, no rub. 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 Medical - PN: Obj Da - Labs CBC & Chem 7: 04/08/17 03:35 04/08/17 03:35 Labs: Abnormal Lab Results 04/08/17 04/08/17 04/08/17 03:35 03:35 03:35 RBC 3.57 L Hgb 10.0 L Hct 29.9 L RDW 17.1 H Plt Count 85 L MPV 11.2 H Lymph % (Auto) Lymph # (Auto) 1.4 L Seg Neutrophils % Lymphocytes % Platelet Estimate RBC Morphology Anisocytosis Sodium Carbon Dioxide 21 L Anion Gap BUN 47 H Creatinine 1.9 H Glucose 145 H Uric Acid 11.1 H Calcium 8.2 L Phosphorus Magnesium AST 108 H Lactate Dehydrogenase 516 H Total Creatine Kinase 94222 H NT-Pro-B Natriuret Pep Triglycerides 331 H Urine Protein Urine Occult Blood Ur Leukocyte Esterase Urine WBC Hyaline Casts 04/07/17 04/07/17 04/07/17 13:23 03:31 03:31 RBC Hgb Hct RDW Plt Count MPV Lymph % (Auto) Lymph # (Auto) Seg Neutrophils % Lymphocytes % Platelet Estimate RBC Morphology Anisocytosis Sodium Carbon Dioxide 20 L Anion Gap BUN 61 H 72 H Creatinine 2.0 H 2.4 H Glucose 137 H Uric Acid 14.8 H Calcium 8.0 L Phosphorus 4.6 H Magnesium 2.8 H AST 121 H Lactate Dehydrogenase 593 H Total Creatine Kinase 76945 H 91716 H NT-Pro-B Natriuret Pep Triglycerides 204 H Urine Protein Urine Occult Blood Ur Leukocyte Esterase Urine WBC Hyaline Casts 04/07/17 04/06/17 04/06/17 03:31 17:52 17:52 RBC 3.97 L Hgb 11.0 L Hct 32.7 L RDW 16.9 H Plt Count 107 L MPV 11.1 H Lymph % (Auto) 13.8 L Lymph # (Auto) 0.9 L Seg Neutrophils % Lymphocytes % Platelet Estimate RBC Morphology Anisocytosis Sodium Carbon Dioxide Anion Gap BUN Creatinine Glucose Uric Acid Calcium Phosphorus Magnesium AST Lactate Dehydrogenase Total Creatine Kinase 7563 H NT-Pro-B Natriuret Pep 8681.0 H Triglycerides Urine Protein Urine Occult Blood Ur Leukocyte Esterase Urine WBC Hyaline Casts 04/06/17 04/06/17 04/06/17 17:52 17:52 17:28 RBC 4.47 L Hgb 12.1 L Hct 36.7 L RDW 16.9 H Plt Count 139 L MPV 10.7 H Lymph % (Auto) Lymph # (Auto) Seg Neutrophils % 83 H Lymphocytes % 12 L Platelet Estimate Decreased A RBC Morphology Abnorm A Anisocytosis 1+ A Sodium 146 H Carbon Dioxide Anion Gap 19.0 H BUN 79 H Creatinine 2.7 H Glucose 33 L* Uric Acid Calcium Phosphorus Magnesium AST 79 H Lactate Dehydrogenase Total Creatine Kinase NT-Pro-B Natriuret Pep Triglycerides Urine Protein 30 A Urine Occult Blood 0.2 A Ur Leukocyte Esterase 25 A Urine WBC 6 H Hyaline Casts 4 H Meds: Medications Acetaminophen (Tylenol) 650 mg PO Q6HP PRN PRN Reason: PAIN/FEVER > 101 Albuterol/Ipratropium (Duoneb) 3 ml NEB Q6HRT [facility] Last Admin: 04/08/17 07:40 Dose: 3 ml Amantadine HCl (Amantadine) 100 mg PO QAM [facility] Last Admin: 04/08/17 08:59 Dose: 100 mg Aspirin (Aspirin) 81 mg PO DAILY [facility] Last Admin: 04/08/17 09:00 Dose: 81 mg Atenolol (Tenormin) 100 mg PO DAILY [facility] Last Admin: 04/08/17 09:00 Dose: 100 mg Budesonide (Pulmicort) 2 puff INH BID [facility] Last Admin: 04/07/17 20:46 Dose: Not Given Carbidopa/Levodopa (Sinemet 25/100) 2 tab PO TID [facility] Last Admin: 04/08/17 09:00 Dose: 2 tab Ceftriaxone Sodium (Rocephin) 1 gm IV Q24H [facility] Last Admin: 04/08/17 09:35 Dose: 1 gm Dextrose (Dextrose 50%) 0 ml IV UD PRN PRN Reason: Hypoglycemia Diagnostic Test (Pha) (Accu-Chek) 1 each FS ACHS [facility] Last Admin: 04/08/17 07:07 Dose: 1 each Donepezil HCl (Aricept) 5 mg PO DAILY [facility] Last Admin: 04/08/17 08:59 Dose: 5 mg Glucose (Insta-Glucose) 15 gm PO PRN PRN PRN Reason: Hypoglycemia Heparin Sodium (Porcine) (Heparin) 5,000 unit SQ Q12 [facility] Last Admin: 04/08/17 09:00 Dose: 5,000 unit Sodium Chloride (Sodium Chloride 0.9%) 1,000 mls @ 125 mls/hr IV .Q8H [facility] Last Admin: 04/08/17 07:07 Dose: 125 mls/hr Insulin Human Lispro (Humalog) 0 unit SQ ACHS [facility] PRN Reason: Protocol Last Admin: 04/08/17 07:08 Dose: Not Given Naloxone HCl (Narcan) 0.1 mg IV Q2MIN PRN PRN Reason: Opiate Reversal Ondansetron HCl (Zofran) 4 mg IV Q4HP PRN PRN Reason: Nausea And Vomiting Oxycodone/Acetaminophen (Percocet 5-325 Mg) 1 tab PO Q4HP PRN PRN Reason: PAIN LEVEL 3-6 Pantoprazole Sodium (Protonix) 40 mg PO QAMAC [facility] Last Admin: 04/08/17 07:33 Dose: 40 mg Pregabalin (Lyrica) 300 mg PO [facility] Last Admin: 04/07/17 20:50 Dose: 300 mg Quetiapine Fumarate (Seroquel) 25 mg PO QPM [facility] Last Admin: 04/07/17 20:46 Dose: 25 mg Sertraline HCl (Zoloft) 100 mg PO QDAY [facility] Last Admin: 04/08/17 09:00 Dose: 100 mg Simvastatin (Zocor) 2.5 mg PO [facility] Last Admin: 04/07/17 20:44 Dose: 2.5 mg Travoprost (Travatan Z Ophth Drops) 1 gtt OU QPM [facility] Last Admin: 04/07/17 20:46 Dose: Not Given Medical - PN: A/P - Time Spent With Patient Total time spent is greater than 50% in coordination of care (as documented) at patient's floor/unit and/or counseling patient: - Narrative A/P Narrative: A/P acute kidney injury: due to poor intake, use of diuretic,s julieth inhibitors, on IVF, hold nephrotoxic meds, renal function improving slowly, good urine output so far. UTI: ua suggestive of UTI, pt has urinary urgency, was smelling of urine in the ER, place adams, iv rocephin, urine cx is strep. Pt on rocephin CK/ rhabdomyolysis: due to repeated falls , and lying on the floor, IV fluids for now, trend CK, CK at 11K now, improving from yesterday ,monitor, electrolytes stable. Repeated falls: due to UTI, dehydration as well as s/p bka and Parkinson disease (missed meds apparently today), PT/ OT eval DM: glucose better now, tolerating po well, d/c d5ns and swtich to NS only, sliding scale insulin for now, resume home lantus as appropriate, for now glucose is reasonably controlled with SSI Parkinsonism disease: resume home medications and monitor Hallucinations/ Delirium: likely multifactorial, worsened due to acute flare up , will increase dose of seroquel from 25 to 50, and can uptitrate as needed. DvT hep sq DNR Diabetic cardiac diet. Medical - PN: Qual - VTE Deep Vein Thrombosis/Pulmonary Embolism Present on Admission: No
[2017-04-08] MEDS: BUDESONIDE 1 PUFF INHALER INH SCH ×2 (11:37→20:17)
[2017-04-08] MEDS ORDERED: LORazepam 2 MG/ML VIAL ONE (13:23)
[2017-04-08] MEDS ORDERED: LORazepam 2 MG/ML VIAL IV PRN (13:46)
[2017-04-08] MEDS: QUEtiapine 25 MG TABLET PO SCH ×2 (13:48→20:17)
[2017-04-08] MEDS: PREGABALIN 150 MG CAPSULE PO SCH (20:16)
[2017-04-08] MEDS: TRAVOPROST OPHTH DROPS BOTTLE 2.5ML OU SCH (20:17)
[2017-04-08] MEDS: SIMVASTATIN 10 MG TABLET PO SCH (20:17)
[2017-04-08] MEDS ORDERED: HALOPERIDOL LACTATE 5 MG/ML VIAL IV PRN (21:31)
[2017-04-08] MEDS ORDERED: HALOPERIDOL LACTATE 5 MG/ML VIAL ONE (21:41)
[2017-04-09] MEDS: 0.9 % SODIUM CHLORIDE 1,000 ML IV SCH ×2 (00:37→11:19)
[2017-04-09] MEDS: IPRATROPIUM/ALBUTEROL 3 ML AMPUL.NEB NEB SCH ×3 (01:27→14:43)
[2017-04-09 06:45] LABS: Basophils # (Auto) 0.1 K/mcL (0.0-0.3); Basophils % (Auto) 0.9 % (0.0-2.0); Eosinophils # (Auto) 0.1 K/mcL (0.0-0.7); Eosinophils % (Auto) 1.1 % (0.0-7.0); Granulocytes % (Auto) 62.8 % (38.0-78.0); Lymphocytes # (Auto) 1.3 K/mcL (1.5-4.8); Lymphocytes % (Auto) 23.2 % (15.5-49.0); Mean Cell Volume 84.1 fL (80.0-100.0); Mean Corpuscular Hemoglobin 27.7 pg (26.0-34.0); Monocytes # (Auto) 0.7 K/mcL (0.1-0.9); Platelet Count 83 K/mcL (140-440); RBC 3.65 M/mcL (4.50-5.90); Red Cell Distribution Width 17.7 % (11.5-14.5)
[2017-04-09 06:46] LABS: ALT/SGPT < 5 U/l (0-40); Albumin 3.9 gm/dL (3.2-5.2); Albumin/Globulin Ratio 1.4 (1.0-2.3); Alkaline Phosphatase 118 U/L (39-117); Bilirubin,Direct 0.2 mg/dL (0.0-0.3); Blood Urea Nitrogen 43 mg/dl (6-20); Gamma Glutamyl Transpeptidase 89 U/L (8-61); Magnesium 2.2 mg/dL (1.6-2.5); Uric Acid 9.9 mg/dL (2.5-8.0)
[2017-04-09] MEDS ORDERED: FUROSEMIDE 40 MG/4 ML VIAL IV ONE (07:32)
[2017-04-09] MEDS: INSULIN LISPRO 1 UNIT/0.01 ML UNIT SQ SCH ×4 (08:02→21:24)
[2017-04-09] MEDS: PANTOPRAZOLE 40 MG TABLET PO SCH (08:03)
[2017-04-09] MEDS: 0.45 % SODIUM CHLORIDE 1,000 ML IV SCH ×3 (08:04→23:52)
[2017-04-09] MEDS: ATENOLOL 50 MG TABLET PO SCH (08:30)
[2017-04-09] MEDS: AMANTADINE HCL 100 MG CAPSULE PO SCH (08:30)
[2017-04-09] MEDS: SERTRALINE 100 MG TABLET PO SCH (08:30)
[2017-04-09] MEDS: CARBIDOPA/LEVODOPA 25/100 TABLET PO SCH ×3 (08:30→21:23)
[2017-04-09] MEDS: ASPIRIN 81 MG TAB.CHEW PO SCH (08:30)
[2017-04-09] MEDS: HEPARIN 5,000 UNIT/ML VIAL SQ SCH ×2 (08:31→21:24)
[2017-04-09] MEDS: DONEPEZIL 10 MG TABLET PO SCH (08:31)
[2017-04-09] MEDS: QUEtiapine 25 MG TABLET PO SCH ×2 (08:31→21:24)
[2017-04-09] MEDS: BUDESONIDE 1 PUFF INHALER INH SCH ×2 (08:32→21:25)
--- NOTE | 2017-04-09 09:46 | Internal Med Progress Note ---
Medical - PN: Subj Patient information: Note initiated : 04/09/17 at 9:43 am Service Date, if different from initiated Date: [] Patient: Abdelrahman Henriquez 61 y/o M admitted on 04/06/17 for fall, increase weaknes and confusion. Chief Complaint: [] Interval history: Mr. Henriquez is a 61 year old Male with h/o dementia, parkinsons disease (5-6 yrs) , wheel chair bound, presents to the ER today after 2-3 days of not feeling well at bedside who provided most of the history The patient was apparently in his usual health 3 days ago when his condition started to worsen, his oral intake declined, she noticed that he was having hallucinations (talking with grand child who was not there in the room). The patient has had several episodes of witnessed and unwitnessed falls. He had 2 falls yesterday and 2 falls today. When his returned home today she noticed that he was found face down on the floor. He denied any other issues or complaints, no pain in joints or head injury. He does have urinary issues, and can develop incontinence. NO abnormal seizure like movements noted. In the ER his labs showed mildly elevated wbc at 10.87, worsening renal function , creat of 2.7 (normal in past), low glucose of 33, elevated bun 79, CK 7563, elevated bnp, CXR showed cardiomegaly. no infiltrate ua suggesitive of uti The patient was therefore admitted to the hospital for further management. Apr 07 patient seen examined no acute overnight issues, labs this AM show worsening CK, IV bolus saline given recheck this afternoon. creat improving pt mental status much better, sitting comfortably in chair, answered questions, did not remember much of last night, thinks his has left him othewise denies any acute complaints. Was able to eat his breakfast. CT head and CT pelvis neg for acute pathology Apr 08 patient seen examined, sitting comfortably in the chair has no acute concerns still has significant hallucinations, some one trying to kill him? watching ghosts as in cartoons, his bed taking him for a ride Has no self harm feelins at this time Plan to increase dose of seroquel to 50qpm and see how he does his creat is trending down, ck is at 11K today, He is tolerating IV well Apr 09 patient seen examined, was having significant hallucinations, increased doses of seroquel not helping, but yesterday was the first day, he was started on prn haldol to help deal with agitation/ confusion from his hallucinations he slept well after a couple of doses His creat is trending down, CK continues to trend down his labs show elevated K today, repeat labs ordered IVF changed from NS to half NS, IV lasix x1 dose given to help with kaliuresis, will monitor closely Pertinent ROS: Denies headache, dizziness Denies chest pain, palpitations Denies cough or shortness of breath Denies abdominal pain, nausea or vomiting. - Constitutional Vitals: Vital Signs Temp Pulse Resp BP Pulse Ox 96.9 F L 68 16 142/72 98 04/09/17 08:00 04/09/17 08:34 04/09/17 08:34 04/09/17 08:00 04/09/17 08:00 Period Temp Pulse Resp BP Sys/Leung Pulse Ox Last 24 Hr 96.9 F-98.6 F 68-75 16-20 110-145/65-116 92-98 Intake and Output 04/08/17 04/09/17 04/09/17 21:59 05:59 13:59 Intake Total 1120 / 1120 1440 / 1440 2108 / 2108 Output Total 850 / 850 1050 / 1050 350 / 350 Balance 270 / 270 390 / 390 1758 / 1758 Weight 237 lb Intake & Output: Intake & Output 04/08/17 04/09/17 04/09/17 21:59 05:59 13:59 Intake Total 1120 / 1120 1440 / 1440 2108 / 2108 Output Total 850 / 850 1050 / 1050 350 / 350 Balance 270 / 270 390 / 390 1758 / 1758 Weight 237 lb Intake: IV 1000 / 1000 1000 / 1000 1888 / 1888 Sodium Chloride 0.9% 1,000 ml @ 1000 / 1000 1000 / 1000 888 / 888 125 mls/hr IV .Q8H [facility] Rx#: [id number] Oral 120 / 120 440 / 440 220 / 220 Output: Urine Catheter Amount 850 / 850 1050 / 1050 350 / 350 Other: Meal Lunch Breakfast Percent of Meal Consumed 25% 100% Feeding Ability Independent Exam: Constitutional; Afebrile, cooperative, alert, not in distress. Eyes- No icterus, , No periorbital swelling Ears- Ext ear normal, hearing normal to conversation. Neck- Midline trachea, supple Respiratory system: Air Entry equal on both sides, No crackles or wheezing, no rhonchi. CVS- Rate rhythm regular, S1,S2 heard, no gallop, no rub. Abdomen- Soft nontender abdomen, no organomegaly, no tenderness, no guarding or rigidity, [employer]- AOOx3, moving all extremities, no gross focal deficit noted. Medical - PN: Obj Da - Labs CBC & Chem 7: 04/09/17 05:32 04/09/17 07:54 Labs: Abnormal Lab Results 04/09/17 04/09/17 04/09/17 05:32 05:32 05:32 RBC 3.65 L Hgb 10.1 L Hct 30.7 L RDW 17.7 H Plt Count 83 L MPV 11.5 H Lymph % (Auto) Lymph # (Auto) 1.3 L Seg Neutrophils % Lymphocytes % Platelet Estimate RBC Morphology Anisocytosis Sodium 146 H Potassium 5.5 H Chloride 114 H Carbon Dioxide 20 L Anion Gap BUN 43 H Creatinine 1.7 H Glucose 61 L Uric Acid 9.9 H Calcium 8.2 L Phosphorus Magnesium GGT 89 H AST 80 H Alkaline Phosphatase 118 H Lactate Dehydrogenase 438 H Total Creatine Kinase 5578 H NT-Pro-B Natriuret Pep Triglycerides Urine Protein Urine Occult Blood Ur Leukocyte Esterase Urine WBC Hyaline Casts 04/08/17 04/08/17 04/08/17 03:35 03:35 03:35 RBC 3.57 L Hgb 10.0 L Hct 29.9 L RDW 17.1 H Plt Count 85 L MPV 11.2 H Lymph % (Auto) Lymph # (Auto) 1.4 L Seg Neutrophils % Lymphocytes % Platelet Estimate RBC Morphology Anisocytosis Sodium Potassium Chloride Carbon Dioxide 21 L Anion Gap BUN 47 H Creatinine 1.9 H Glucose 145 H Uric Acid 11.1 H Calcium 8.2 L Phosphorus Magnesium GGT AST 108 H Alkaline Phosphatase Lactate Dehydrogenase 516 H Total Creatine Kinase 49303 H NT-Pro-B Natriuret Pep Triglycerides 331 H Urine Protein Urine Occult Blood Ur Leukocyte Esterase Urine WBC Hyaline Casts 04/07/17 04/07/17 04/07/17 13:23 03:31 03:31 RBC Hgb Hct RDW Plt Count MPV Lymph % (Auto) Lymph # (Auto) Seg Neutrophils % Lymphocytes % Platelet Estimate RBC Morphology Anisocytosis Sodium Potassium Chloride Carbon Dioxide 20 L Anion Gap BUN 61 H 72 H Creatinine 2.0 H 2.4 H Glucose 137 H Uric Acid 14.8 H Calcium 8.0 L Phosphorus 4.6 H Magnesium 2.8 H GGT AST 121 H Alkaline Phosphatase Lactate Dehydrogenase 593 H Total Creatine Kinase 84517 H 58949 H NT-Pro-B Natriuret Pep Triglycerides 204 H Urine Protein Urine Occult Blood Ur Leukocyte Esterase Urine WBC Hyaline Casts 04/07/17 04/06/17 04/06/17 03:31 17:52 17:52 RBC 3.97 L Hgb 11.0 L Hct 32.7 L RDW 16.9 H Plt Count 107 L MPV 11.1 H Lymph % (Auto) 13.8 L Lymph # (Auto) 0.9 L Seg Neutrophils % Lymphocytes % Platelet Estimate RBC Morphology Anisocytosis Sodium Potassium Chloride Carbon Dioxide Anion Gap BUN Creatinine Glucose Uric Acid Calcium Phosphorus Magnesium GGT AST Alkaline Phosphatase Lactate Dehydrogenase Total Creatine Kinase 7563 H NT-Pro-B Natriuret Pep 8681.0 H Triglycerides Urine Protein Urine Occult Blood Ur Leukocyte Esterase Urine WBC Hyaline Casts 04/06/17 04/06/17 04/06/17 17:52 17:52 17:28 RBC 4.47 L Hgb 12.1 L Hct 36.7 L RDW 16.9 H Plt Count 139 L MPV 10.7 H Lymph % (Auto) Lymph # (Auto) Seg Neutrophils % 83 H Lymphocytes % 12 L Platelet Estimate Decreased A RBC Morphology Abnorm A Anisocytosis 1+ A Sodium 146 H Potassium Chloride Carbon Dioxide Anion Gap 19.0 H BUN 79 H Creatinine 2.7 H Glucose 33 L* Uric Acid Calcium Phosphorus Magnesium GGT AST 79 H Alkaline Phosphatase Lactate Dehydrogenase Total Creatine Kinase NT-Pro-B Natriuret Pep Triglycerides Urine Protein 30 A Urine Occult Blood 0.2 A Ur Leukocyte Esterase 25 A Urine WBC 6 H Hyaline Casts 4 H Meds: Medications Acetaminophen (Tylenol) 650 mg PO Q6HP PRN PRN Reason: PAIN/FEVER > 101 Albuterol/Ipratropium (Duoneb) 3 ml NEB Q6HRT [facility] Last Admin: 04/09/17 08:33 Dose: 3 ml Amantadine HCl (Amantadine) 100 mg PO QAM [facility] Last Admin: 04/09/17 08:30 Dose: 100 mg Aspirin (Aspirin) 81 mg PO DAILY [facility] Last Admin: 04/09/17 08:30 Dose: 81 mg Atenolol (Tenormin) 100 mg PO DAILY [facility] Last Admin: 04/09/17 08:30 Dose: 100 mg Budesonide (Pulmicort) 2 puff INH BID [facility] Last Admin: 04/09/17 08:32 Dose: Not Given Carbidopa/Levodopa (Sinemet 25/100) 2 tab PO TID [facility] Last Admin: 04/09/17 08:30 Dose: 2 tab Ceftriaxone Sodium (Rocephin) 1 gm IV Q24H [facility] Last Admin: 04/08/17 09:35 Dose: 1 gm Dextrose (Dextrose 50%) 0 ml IV UD PRN PRN Reason: Hypoglycemia Diagnostic Test (Pha) (Accu-Chek) 1 each FS [facility] Last Admin: 04/09/17 08:02 Dose: 1 each Donepezil HCl (Aricept) 5 mg PO DAILY [facility] Last Admin: 04/09/17 08:31 Dose: 5 mg Glucose (Insta-Glucose) 15 gm PO PRN PRN PRN Reason: Hypoglycemia Haloperidol Lactate (Haldol) 2 mg IV Q2H PRN PRN Reason: ANXIETY/SEDATION Last Admin: 04/08/17 23:41 Dose: 2 mg Heparin Sodium (Porcine) (Heparin) 5,000 unit SQ Q12 [facility] Last Admin: 04/09/17 08:31 Dose: 5,000 unit Sodium Chloride (Sodium Chloride 0.45%) 1,000 mls @ 150 mls/hr IV .Q6H40M [facility] Last Admin: 04/09/17 08:04 Dose: 150 mls/hr Insulin Human Lispro (Humalog) 0 unit SQ [facility] PRN Reason: Protocol Last Admin: 04/09/17 08:02 Dose: Not Given Lorazepam (Ativan) 1 mg IV Q2-4HP PRN PRN Reason: ANXIETY/SEDATION Naloxone HCl (Narcan) 0.1 mg IV Q2MIN PRN PRN Reason: Opiate Reversal Ondansetron HCl (Zofran) 4 mg IV Q4HP PRN PRN Reason: Nausea And Vomiting Oxycodone/Acetaminophen (Percocet 5-325 Mg) 1 tab PO Q4HP PRN PRN Reason: PAIN LEVEL 3-6 Pantoprazole Sodium (Protonix) 40 mg PO QAMAC [facility] Last Admin: 04/09/17 08:03 Dose: 40 mg Pregabalin (Lyrica) 300 mg PO HS [facility] Last Admin: 04/08/17 20:16 Dose: 300 mg Quetiapine Fumarate (Seroquel) 50 mg PO BID [facility] Last Admin: 04/09/17 08:31 Dose: 50 mg Sertraline HCl (Zoloft) 100 mg PO QDAY [facility] Last Admin: 04/09/17 08:30 Dose: 100 mg Simvastatin (Zocor) 2.5 mg PO HS [facility] Last Admin: 04/08/17 20:17 Dose: 2.5 mg Travoprost (Travatan Z Ophth Drops) 1 gtt OU QPM [facility] Last Admin: 04/08/17 20:17 Dose: Not Given Medical - PN: A/P - Time Spent With Patient Total time spent is greater than 50% in coordination of care (as documented) at patient's floor/unit and/or counseling patient: - Narrative A/P Narrative: A/P acute kidney injury: due to poor intake, use of diuretic,s julieth inhibitors, on IVF, hold nephrotoxic meds, renal function improving slowly, good urine output so far. UTI: ua suggestive of UTI, pt has urinary urgency, was smelling of urine in the ER, place ad[facility], iv rocephin, urine cx is strep. Pt on rocephin CK/ rhabdomyolysis: due to repeated falls , and lying on the floor, IV fluids for now, trend CK, CK at 5578 K now, improving from yesterday ,monitor, electrolytes stable. Continue IV F Hyperkalemia: not sure if true value, IVF increased, labs repeated, IV lasix x1 , monitor, will add kayexalate if needed. Repeated falls: due to UTI, dehydration as well as s/p bka and Parkinson disease (missed meds apparently today), PT/ OT eval DM: glucose better now, tolerating po well, on ssi for now, no need for long acting insuiln given had one low value. Parkinsonism disease: resume home medications and monitor Hallucinations/ Delirium: likely multifactorial, worsened due to acute flare up , seroquel to 50bid now, see if this helps if not can go up further or use alternative agent. IV haldol prn for acute decompensation if needed. DvT hep sq DNR Diabetic cardiac diet. Medical - PN: Qual - VTE Deep Vein Thrombosis/Pulmonary Embolism Present on Admission: No
[2017-04-09 09:55] LABS: Blood Urea Nitrogen 43 mg/dl (6-20)
[2017-04-09] MEDS ORDERED: SODIUM POLYSTYRENE SULFONATE 15 GM/60 ML SUSPENSION PO ONE (10:02)
[2017-04-09] MEDS: cefTRIAXone 1 GM VIAL IV SCH (10:43)
[2017-04-09] MEDS: THIAMINE 100 MG in 0.9 % SODIUM CHLORIDE 50 ML IV SCH (12:30)
[2017-04-09 15:58] LABS: Blood Urea Nitrogen 42 mg/dl (6-20)
[2017-04-09] MEDS: PREGABALIN 150 MG CAPSULE PO SCH (21:24)
[2017-04-09] MEDS: TRAVOPROST OPHTH DROPS BOTTLE 2.5ML OU SCH (21:25)
[2017-04-09] MEDS: SIMVASTATIN 10 MG TABLET PO SCH (21:25)
[2017-04-10 05:07] LABS: ALT/SGPT 5 U/l (0-40); Albumin 3.3 gm/dL (3.2-5.2); Alkaline Phosphatase 158 U/L (39-117); Bilirubin,Direct < 0.2 mg/dL (0.0-0.3); Blood Urea Nitrogen 35 mg/dl (6-20); Gamma Glutamyl Transpeptidase 130 U/L (8-61); Magnesium 1.8 mg/dL (1.6-2.5)
[2017-04-10] MEDS: 0.45 % SODIUM CHLORIDE 1,000 ML IV SCH ×3 (06:45→21:16)
[2017-04-10 06:56] LABS: Basophils # (Auto) 0 K/mcL (0.0-0.3); Basophils % (Auto) 0.5 % (0.0-2.0); Eosinophils # (Auto) 0.2 K/mcL (0.0-0.7); Eosinophils % (Auto) 2.7 % (0.0-7.0); Granulocytes % (Auto) 68.7 % (38.0-78.0); Lymphocytes # (Auto) 1.1 K/mcL (1.5-4.8); Lymphocytes % (Auto) 19.2 % (15.5-49.0); Mean Cell Volume 83.6 fL (80.0-100.0); Mean Corpuscular HGB Conc 33.6 g/dL (31.0-36.0); Mean Corpuscular Hemoglobin 28.1 pg (26.0-34.0); Monocytes # (Auto) 0.5 K/mcL (0.1-0.9); Monocytes % (Auto) 8.9 % (1.0-12.0); Platelet Count 78 K/mcL (140-440); RBC 3.73 M/mcL (4.50-5.90); Red Cell Distribution Width 17.2 % (11.5-14.5)
[2017-04-10] MEDS: PANTOPRAZOLE 40 MG TABLET PO SCH (07:31)
[2017-04-10] MEDS: INSULIN LISPRO 1 UNIT/0.01 ML UNIT SQ SCH ×4 (07:41→20:50)
[2017-04-10] MEDS: QUEtiapine 25 MG TABLET PO SCH ×2 (09:57→20:51)
[2017-04-10] MEDS: DONEPEZIL 10 MG TABLET PO SCH (09:57)
[2017-04-10] MEDS: SERTRALINE 100 MG TABLET PO SCH (09:58)
[2017-04-10] MEDS: ASPIRIN 81 MG TAB.CHEW PO SCH (09:58)
[2017-04-10] MEDS: CARBIDOPA/LEVODOPA 25/100 TABLET PO SCH ×3 (09:58→20:55)
[2017-04-10] MEDS: ATENOLOL 50 MG TABLET PO SCH (09:58)
[2017-04-10] MEDS: THIAMINE 100 MG in 0.9 % SODIUM CHLORIDE 50 ML IV SCH (09:59)
[2017-04-10] MEDS: AMANTADINE HCL 100 MG CAPSULE PO SCH (09:59)
[2017-04-10] MEDS: BUDESONIDE 1 PUFF INHALER INH SCH ×2 (10:06→20:51)
[2017-04-10] MEDS: HEPARIN 5,000 UNIT/ML VIAL SQ SCH ×2 (10:07→20:49)
[2017-04-10] MEDS: cefTRIAXone 1 GM VIAL IV SCH (10:13)
--- NOTE | 2017-04-10 14:20 | Internal Med Progress Note ---
Medical - PN: Subj Patient information: Note initiated : 04/10/17 at 2:20 pm Patient: Abdelrahman Henriquez 61 y/o M admitted on 04/06/17 for fall, increase weaknes and confusion. Interval history: Mr. Henriquez is a 61 year old Male with h/o dementia, parkinsons disease (5-6 yrs) , wheel chair bound, presents to the ER today after 2-3 days of not feeling well at bedside who provided most of the history The patient was apparently in his usual health 3 days ago when his condition started to worsen, his oral intake declined, she noticed that he was having hallucinations (talking with grand child who was not there in the room). The patient has had several episodes of witnessed and unwitnessed falls. He had 2 falls yesterday and 2 falls today. When his returned home today she noticed that he was found face down on the floor. He denied any other issues or complaints, no pain in joints or head injury. He does have urinary issues, and can develop incontinence. NO abnormal seizure like movements noted. In the ER his labs showed mildly elevated wbc at 10.87, worsening renal function , creat of 2.7 (normal in past), low glucose of 33, elevated bun 79, CK 7563, elevated bnp, CXR showed cardiomegaly. no infiltrate ua suggesitive of uti The patient was therefore admitted to the hospital for further management. Apr 07 patient seen examined no acute overnight issues, labs this AM show worsening CK, IV bolus saline given recheck this afternoon. creat improving pt mental status much better, sitting comfortably in chair, answered questions, did not remember much of last night, thinks his has left him othewise denies any acute complaints. Was able to eat his breakfast. CT head and CT pelvis neg for acute pathology Apr 08 patient seen examined, sitting comfortably in the chair has no acute concerns still has significant hallucinations, some one trying to kill him? watching ghosts as in cartoons, his bed taking him for a ride Has no self harm feelins at this time Plan to increase dose of seroquel to 50qpm and see how he does his creat is trending down, ck is at 11K today, He is tolerating IV well Apr 09 patient seen examined, was having significant hallucinations, increased doses of seroquel not helping, but yesterday was the first day, he was started on prn haldol to help deal with agitation/ confusion from his hallucinations he slept well after a couple of doses His creat is trending down, CK continues to trend down his labs show elevated K today, repeat labs ordered IVF changed from NS to half NS, IV lasix x1 dose given to help with kaliuresis, will monitor closely April 10: Today, the patient says he is feeling better and a little bit more like himself. Nurses note he is much clearer mentally. Patient does note that he has been having visual hallucinations, but notes he has had those in the past, and his neurologist, Dr. Lafleur, is aware. Nurses also note patient's strength has improved. He is able to stand and transfer to the chair now. Visible therapy notes some improvement overall. Otherwise, patient denies fever chills, chest pain or shortness of breath, GI or symptoms. Platelets are lower today, but patient denies any obvious bleeding. - Constitutional Vitals: Vital Signs Temp Pulse Resp BP Pulse Ox 97.4 F 69 18 163/101 96 04/10/17 11:43 04/09/17 16:06 04/10/17 11:43 04/10/17 11:43 04/10/17 11:43 Period Temp Pulse Resp BP Sys/Leung Pulse Ox Last 24 Hr 97.4 F-99.5 F 69 16-20 149-163/98-109 90-97 Intake and Output 04/10/17 04/10/17 04/10/17 05:59 13:59 21:59 Intake Total 1240 / 1240 1240 / 1240 Output Total 1100 / 1100 550 / 550 Balance 140 / 140 690 / 690 Intake & Output: Intake & Output 04/10/17 04/10/17 04/10/17 05:59 13:59 21:59 Intake Total 1240 / 1240 1240 / 1240 Output Total 1100 / 1100 550 / 550 Balance 140 / 140 690 / 690 Intake: IV 1000 / 1000 1000 / 1000 Sodium Chloride 0.45% 1,000 ml 1000 / 1000 1000 / 1000 @ 150 mls/hr IV .Q6H40M [facility] Rx# :[id number] Oral 240 / 240 240 / 240 Output: Urine Catheter Amount 1100 / 1100 550 / 550 Other: Meal Breakfast Percent of Meal Consumed 100% Feeding Ability Independent # Bowel Movements 1 On exam, he is sitting up on the side of his bed, in no acute distress. No significant tremor is noted. Neck is supple without obvious lymphadenopathy or JVD. Cardiac exam shows regular rate and rhythm. 2/6 systolic ejection murmur is noted. Lungs are clear to auscultation. Abdomen: Is soft and nontender. 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 There are a few scabs noted on the stump, but no signs of infection. Left lower extremity is wrapped in an unusual Velcro compression wrap. There is minimal edema noted. A wound on the left lower leg is covered with Mepilex. Neurologic: The patient is alert and oriented, calm and cooperative. No gross motor deficits are noted today. Medical - PN: Obj Da - Labs CBC & Chem 7: 04/10/17 03:55 04/10/17 03:55 Labs: Abnormal Lab Results 04/10/17 04/10/17 04/10/17 03:55 03:55 03:55 RBC 3.73 L Hgb 10.5 L Hct 31.2 L RDW 17.2 H Plt Count 78 L MPV Lymph # (Auto) 1.1 L Sodium Potassium Chloride Carbon Dioxide 19 L BUN 35 H Creatinine 1.6 H Glucose 112 H Uric Acid 9.0 H Calcium 7.9 L GGT 130 H AST 49 H Alkaline Phosphatase 158 H Lactate Dehydrogenase 518 H Total Creatine Kinase 2374 H Triglycerides 183 H 04/09/17 04/09/17 04/09/17 15:12 09:14 05:32 RBC Hgb Hct RDW Plt Count MPV Lymph # (Auto) Sodium Potassium 5.4 H Chloride 109 H Carbon Dioxide 20 L 17 L BUN 42 H 43 H Creatinine 1.6 H 1.7 H Glucose 131 H 147 H Uric Acid Calcium 8.2 L 8.4 L GGT AST Alkaline Phosphatase Lactate Dehydrogenase Total Creatine Kinase 5578 H Triglycerides 04/09/17 04/09/17 04/08/17 05:32 05:32 03:35 RBC 3.65 L Hgb 10.1 L Hct 30.7 L RDW 17.7 H Plt Count 83 L MPV 11.5 H Lymph # (Auto) 1.3 L Sodium 146 H Potassium 5.5 H Chloride 114 H Carbon Dioxide 20 L BUN 43 H Creatinine 1.7 H Glucose 61 L Uric Acid 9.9 H Calcium 8.2 L GGT 89 H AST 80 H Alkaline Phosphatase 118 H Lactate Dehydrogenase 438 H Total Creatine Kinase 78454 H Triglycerides 04/08/17 04/08/17 04/07/17 03:35 03:35 13:23 RBC 3.57 L Hgb 10.0 L Hct 29.9 L RDW 17.1 H Plt Count 85 L MPV 11.2 H Lymph # (Auto) 1.4 L Sodium Potassium Chloride Carbon Dioxide 21 L 20 L BUN 47 H 61 H Creatinine 1.9 H 2.0 H Glucose 145 H 137 H Uric Acid 11.1 H Calcium 8.2 L 8.0 L GGT AST 108 H Alkaline Phosphatase Lactate Dehydrogenase 516 H Total Creatine Kinase 05591 H Triglycerides 331 H April 08: MRSA nasal screen is negative. Blood cultures are negative so far. Urine culture grew 10-20,000 mixed melo, and 30-40,000 strep agalactiae, group B. April 07: Renal ultrasound: IMPRESSION: Elevated renal parenchymal echotexture compatible with medical renal disease CT of the pelvis: Show no fracture. Head CT: Showed mild atrophy and chronic ischemic changes. No acute abnormalities. Chest x-ray: Shows mild cardiomegaly, no acute disease. Meds: Medications Acetaminophen (Tylenol) 650 mg PO Q6HP PRN PRN Reason: PAIN/FEVER > 101 Amantadine HCl (Amantadine) 100 mg PO QAM [facility] Last Admin: 04/10/17 09:59 Dose: 100 mg Aspirin (Aspirin) 81 mg PO DAILY [facility] Last Admin: 04/10/17 09:58 Dose: 81 mg Atenolol (Tenormin) 100 mg PO DAILY [facility] Last Admin: 04/10/17 09:58 Dose: 100 mg Budesonide (Pulmicort) 2 puff INH BID [facility] Last Admin: 04/10/17 10:06 Dose: Not Given Carbidopa/Levodopa (Sinemet 25/100) 2 tab PO TID [facility] Last Admin: 04/10/17 09:58 Dose: 2 tab Ceftriaxone Sodium (Rocephin) 1 gm IV Q24H [facility] Last Admin: 04/10/17 10:13 Dose: 1 gm Dextrose (Dextrose 50%) 0 ml IV UD PRN PRN Reason: Hypoglycemia Diagnostic Test (Pha) (Accu-Chek) 1 each FS ACHS [facility] Last Admin: 04/10/17 12:15 Dose: 1 each Donepezil HCl (Aricept) 5 mg PO DAILY [facility] Last Admin: 04/10/17 09:57 Dose: 5 mg Glucose (Insta-Glucose) 15 gm PO PRN PRN PRN Reason: Hypoglycemia Haloperidol Lactate (Haldol) 2 mg IV Q2H PRN PRN Reason: ANXIETY/SEDATION Last Admin: 04/08/17 23:41 Dose: 2 mg Heparin Sodium (Porcine) (Heparin) 5,000 unit SQ Q12 [facility] Last Admin: 04/10/17 10:07 Dose: 5,000 unit Sodium Chloride (Sodium Chloride 0.45%) 1,000 mls @ 150 mls/hr IV .Q6H40M [facility] Last Admin: 04/10/17 06:45 Dose: 150 mls/hr Thiamine HCl 100 mg/ Sodium (Chloride) 51 mls @ 50 mls/hr IV DAILY [facility] Stop: 04/11/17 10:02 Last Admin: 04/10/17 09:59 Dose: 50 mls/hr Insulin Human Lispro (Humalog) 0 unit SQ ACHS [facility] PRN Reason: Protocol Last Admin: 04/10/17 12:46 Dose: 2 unit Lorazepam (Ativan) 1 mg IV Q2-4HP PRN PRN Reason: ANXIETY/SEDATION Naloxone HCl (Narcan) 0.1 mg IV Q2MIN PRN PRN Reason: Opiate Reversal Ondansetron HCl (Zofran) 4 mg IV Q4HP PRN PRN Reason: Nausea And Vomiting Oxycodone/Acetaminophen (Percocet 5-325 Mg) 1 tab PO Q4HP PRN PRN Reason: PAIN LEVEL 3-6 Pantoprazole Sodium (Protonix) 40 mg PO QAMAC [facility] Last Admin: 04/10/17 07:31 Dose: 40 mg Pregabalin (Lyrica) 300 mg PO HS [facility] Last Admin: 04/09/17 21:24 Dose: 300 mg Quetiapine Fumarate (Seroquel) 50 mg PO BID [facility] Last Admin: 04/10/17 09:57 Dose: 50 mg Sertraline HCl (Zoloft) 100 mg PO QDAY [facility] Last Admin: 04/10/17 09:58 Dose: 100 mg Simvastatin (Zocor) 2.5 mg PO HS [facility] Last Admin: 04/09/17 21:25 Dose: 2.5 mg Travoprost (Travatan Z Ophth Drops) 1 gtt OU QPM [facility] Last Admin: 04/09/17 21:25 Dose: Not Given Medical - PN: A/P - Time Spent With Patient Total time spent is greater than 50% in coordination of care (as documented) at patient's floor/unit and/or counseling patient: 25 - 35 minutes - Narrative A/P Narrative: A/P #1. Acute kidney injury: due to poor intake, use of diuretic,s julieth inhibitors, - on IVF, hold nephrotoxic meds, renal function improving slowly, good urine output so far. Improving. #2. Infectious disease. -UTI:UTI, - iv rocephin, urine cx is strep. Pt on rocephin #3. CK/ rhabdomyolysis: due to repeated falls , and lying on the floor, -IV fluids for now, trend CK, improving from yesterday ,monitor, electrolytes stable. Continue IV F #4. Hyperkalemia: Resolved. #5. Repeated falls: due to UTI, dehydration as well as s/p bka and Parkinson disease -Strength is improving. Continue physical therapy. #6. DM: glucose better now, tolerating po well, on ssi for now, no need for long acting insuiln given had one low value. #7. Neurologic. -Parkinsonism disease: resume home medications and monitor weight also reported history of dementia. Followed by Dr. Casas -Hallucinations/ Delirium: likely multifactorial, worsened due to acute flare up , seroquel to 50bid now, see if this helps if not can go up further or use alternative agent. IV haldol prn for acute decompensation if needed. -Mental status appears to be clearing today and approaching baseline. #8. DvT hep sq #9. DNR #10. Hematologic Platelets continue to drop. He has no signs of bleeding. This may or may not be related to heparin injections, but given his high risk of clot, I will continue with heparin and continue to monitor. Diabetic/ cardiac diet. Disposition: Patient will likely need rehab prior to returning home, to decrease risk of recurrent falls. Medical - PN: Qual - VTE Deep Vein Thrombosis/Pulmonary Embolism Present on Admission: No
[2017-04-10] MEDS: SIMVASTATIN 10 MG TABLET PO SCH (20:50)
[2017-04-10] MEDS: TRAVOPROST OPHTH DROPS BOTTLE 2.5ML OU SCH (20:50)
[2017-04-10] MEDS: PREGABALIN 150 MG CAPSULE PO SCH (20:55)
[2017-04-11] MEDS: 0.45 % SODIUM CHLORIDE 1,000 ML IV SCH ×3 (03:52→13:22)
[2017-04-11 05:56] LABS: ALT/SGPT < 5 U/l (0-40); Albumin 3.5 gm/dL (3.2-5.2); Alkaline Phosphatase 155 U/L (39-117); Bilirubin,Direct < 0.2 mg/dL (0.0-0.3); Blood Urea Nitrogen 25 mg/dl (6-20); Gamma Glutamyl Transpeptidase 122 U/L (8-61); Magnesium 1.7 mg/dL (1.6-2.5); Uric Acid 7.7 mg/dL (2.5-8.0)
[2017-04-11 05:57] LABS: Creatine Kinase 1150 IU/L (24-195)
[2017-04-11 06:20] LABS: Basophils # (Auto) 0.1 K/mcL (0.0-0.3); Basophils % (Auto) 1.1 % (0.0-2.0); Eosinophils # (Auto) 0.1 K/mcL (0.0-0.7); Eosinophils % (Auto) 2.5 % (0.0-7.0); Granulocytes % (Auto) 61.3 % (38.0-78.0); Lymphocytes # (Auto) 1.2 K/mcL (1.5-4.8); Lymphocytes % (Auto) 24.6 % (15.5-49.0); Mean Corpuscular Hemoglobin 27.7 pg (26.0-34.0); Monocytes # (Auto) 0.5 K/mcL (0.1-0.9); Monocytes % (Auto) 10.5 % (1.0-12.0); Platelet Count 83 K/mcL (140-440); RBC 3.85 M/mcL (4.50-5.90); Red Cell Distribution Width 17.8 % (11.5-14.5)
[2017-04-11] MEDS: PANTOPRAZOLE 40 MG TABLET PO SCH (07:25)
[2017-04-11] MEDS: INSULIN LISPRO 1 UNIT/0.01 ML UNIT SQ SCH ×2 (07:26→11:53)
[2017-04-11] MEDS: ATENOLOL 50 MG TABLET PO SCH (08:13)
[2017-04-11] MEDS: CARBIDOPA/LEVODOPA 25/100 TABLET PO SCH (08:14)
[2017-04-11] MEDS: AMANTADINE HCL 100 MG CAPSULE PO SCH (08:14)
[2017-04-11] MEDS: SERTRALINE 100 MG TABLET PO SCH (08:14)
[2017-04-11] MEDS: DONEPEZIL 10 MG TABLET PO SCH (08:14)
[2017-04-11] MEDS: QUEtiapine 25 MG TABLET PO SCH (08:15)
[2017-04-11] MEDS: ASPIRIN 81 MG TAB.CHEW PO SCH (08:15)
[2017-04-11] MEDS: THIAMINE 100 MG in 0.9 % SODIUM CHLORIDE 50 ML IV SCH (08:43)
[2017-04-11] MEDS: HEPARIN 5,000 UNIT/ML VIAL SQ SCH (08:51)
[2017-04-11] MEDS: BUDESONIDE 1 PUFF INHALER INH SCH (08:53)
[2017-04-11] MEDS: cefTRIAXone 1 GM VIAL IV SCH (10:11)
--- NOTE | 2017-04-11 11:45 | Discharge Summary ---
Medical - DS: Prov Patient information: Note initiated : 04/11/17 at 11:35 am Service Date, if different from initiated Date: [] Patient: Abdelrahman Henriquez 61 y/o M admitted on 04/06/17 for Rhabdomyolysis, Dehydration, Hypoglycemia. Chief Complaint: [] Date of admission: 04/06/17 21:20 Discharge date: 04/11/17 Primary care physician: Sada Bernard Attending physician on admission: Philip Gonzalez Consults: 04/06/17 20:02 Consult to Physician [CONS] Stat Comment: Consulting Provider: Philip Gonzalez Reason For Exam: Physician to Consult Attending physician on discharge: Jeanette Quinteros Medical - DS: Meds - Discharge Medications Active and Home Medications: Home Medications amantadine HCl 100 mg tablet 100 mg PO QDAY tab 11/02/16 [History Confirmed Last Taken Unknown] aspirin 81 mg tablet 81 mg PO QDAY 11/02/16 [History Confirmed 04/06/17 Last Taken Unknown] atenolol 50 mg tablet 100 mg PO QAM tab 11/02/16 [History Confirmed 04/06/17 Last Taken Unknown] budesonide 90 mcg/actuation breath activated powder inhaler 2 inh INHALATION .COMPLEX 11/02/16 [History Confirmed 04/06/17 Last Taken Unknown] insulin glargine 100 unit/mL subcutaneous solution 60 unit SUB-Q BID ml [History Confirmed 04/06/17 Last Taken Unknown] losartan 100 mg-hydrochlorothiazide 12.5 mg tablet 1 tab PO QDAY 11/02/16 [ History Confirmed 04/06/17 Last Taken Unknown] metformin 500 mg tablet 1,000 mg PO BID 11/02/16 [History Confirmed 04/06/17 Last Taken Unknown] omeprazole 20 mg tablet,delayed release 20 mg PO BID 11/02/16 [History Confirmed 04/06/17 Last Taken Unknown] quetiapine 25 mg tablet 25 mg PO QPM tab 11/02/16 [History Confirmed 04/06/17 Last Taken Unknown] sertraline 100 mg tablet 100 mg PO QDAY 11/02/16 [History Confirmed 04/06/17 Last Taken Unknown] simvastatin 5 mg tablet 2.5 mg PO QPM tab 11/02/16 [History Confirmed 04/06/17 Last Taken Unknown] travoprost 0.004 % eye drops 1 drp OPHTHALMIC QPM 11/02/16 [History Confirmed Last Taken Unknown] Carbidopa/Levodopa [Carbidopa-Levo 25-100 mg Odt] 2 each PO TID 04/06/17 [ History Confirmed 04/06/17 Last Taken Unknown] Donepezil [Aricept] 5 mg PO DAILY 04/06/17 [History Confirmed 04/06/17 Last Taken Unknown] Pregabalin [Lyrica] 300 mg PO HS 04/06/17 [History Confirmed 04/06/17 Last Taken Unknown] Torsemide [Demadex] 20 mg PO TID 04/06/17 [History Confirmed 04/06/17 Last Taken Unknown] Medical - DS: Hosp Hospital course: Follow up issues: 1. Resumption of home Lantus. He is discharged on sliding scale only as he was hypoglycemic this admission. 2. His losartan-HCTZ is discharged today on DC. 3. Resumption of home torsemide. 4. Recommend CBC in one week to follow up thrombocytopenia (83K) and renal function. Mr. Henriquez is a 61 year old M with a history of dementia, Parkinson's disease, R BKA d/t IDDM2 who was admitted with a 3-day history of generalized weakness, visual hallucinations and multiple falls. His returned to find him down on the floor. He was found to have a group B strep urinary tract infection as well as rhabdomyolysis and associated PAT. He received IVF resuscitation and his home antihypertensives were held; he required a dose of Lasix to treat hyperkalemia. Hallucinations were an issue and these resolved with several doses of Haldol. He states he has had intermittent visual hallucinations in the past associated with his Parkinson's. He has had a mild drop in his platelets, but these have been stable over the last several days. He has been evaluated by therapy and recommended to go to rehab. Discharge diagnosis: PAT Secondary discharge diagnosis: Rhabdomyolysis UTI Hyperkalemia Generalized weakness with recurrent falls IDDM2 with hypoglycemia Parkinson's disease Thrombocytopenia - Time Spent with Patient Total time spent providing and/or coordinating discharge services: Greater than 30 minutes Medical - DS: Exam - Constitutional Vitals: Vital Signs Temp Pulse Pulse Resp BP BP Pulse Ox 04/11/17 08:00 97.8 F 68 16 158/93 96 04/11/17 06:47 64 04/11/17 04:04 97.8 F 16 154/89 96 04/11/17 04:00 97.2 F 66 18 154/89 95 04/11/17 00:26 97.8 F 04/10/17 20:20 154/97 04/10/17 20:16 97.2 F 154/97 100 04/10/17 20:00 100 04/10/17 15:40 65 152/88 97 04/10/17 15:38 98.8 F 66 18 152/88 97 04/10/17 11:48 163/101 04/10/17 11:43 97.4 F 18 163/101 96 Intake and Output 04/10/17 04/11/17 04/11/17 21:59 05:59 13:59 Intake Total 2135 / 2135 1230 / 1230 760 / 760 Output Total 525 / 525 1600 / 1600 1050 / 1050 Balance 1610 / 1610 -370 / -370 -290 / -290 Intake: IV 1515 / 1515 990 / 990 Sodium Chloride 0.45% 1,000 ml 1515 / 1515 990 / 990 @ 150 mls/hr IV .Q6H40M [facility] Rx# :[id number] Oral 620 / 620 240 / 240 760 / 760 Output: Urine Catheter Amount 525 / 525 1600 / 1600 1050 / 1050 Other: Meal Dinner Breakfast Percent of Meal Consumed 50% 100% Feeding Ability Independent Weight 240 lb 1.6 oz NAD. No tremor Neck is supple without obvious lymphadenopathy or JVD. Cardiac exam shows regular rate and rhythm. 2/6 systolic ejection murmur is noted. Lungs are clear to auscultation. Abdomen: Is soft and nontender. Hypoactive BT Extremities: Right lower extremity has a BKA. Left lower extremity is wrapped in an unusual Velcro compression wrap. There is minimal edema noted. Neurologic: The patient is alert and oriented, calm and cooperative. No gross motor deficits. Medical - DS: Data Procedures and tests throughout hospitalization: Renal US IMPRESSION: Elevated renal parenchymal echotexture compatible with medical renal disease Pelvis CT IMPRESSION: 1. No fracture or other significant abnormality Head CT IMPRESSION: Mild atrophy and chronic ischemic changes in the deep cerebral white matter. There is no hemorrhage or other acute intracerebral abnormality. CXR IMPRESSION: Mild cardiomegaly. No acute disease Labs on day of discharge: Labs from last 24 hours 04/11/17 04/11/17 04/11/17 03:55 03:55 03:55 WBC 5.0 RBC 3.85 L Hgb 10.7 L Hct 32.4 L MCV 84.0 MCH 27.7 MCHC 33.0 RDW 17.8 H Plt Count 83 L MPV 11.0 H Gran % 61.3 Lymph % (Auto) 24.6 [place] % (Auto) 10.5 Eos % (Auto) 2.5 Baso % (Auto) 1.1 Gran # 3.1 Lymph # (Auto) 1.2 L [place] # (Auto) 0.5 Eos # (Auto) 0.1 Baso # (Auto) 0.1 Sodium 140 Potassium 4.2 Chloride 106 Carbon Dioxide 20 L Anion Gap 14.0 BUN 25 H Creatinine 1.2 GFR Calculation 65 Glucose 112 H Uric Acid 7.7 Calcium 8.2 L Phosphorus 2.9 Magnesium 1.7 Total Bilirubin 0.8 Direct Bilirubin < 0.2 GGT 122 H AST 25 ALT < 5 Alkaline Phosphatase 155 H Lactate Dehydrogenase 358 H Total Creatine Kinase 1150 H Total Protein 6.9 Albumin 3.5 Globulin 3.4 Albumin/Globulin Ratio 1.0 Triglycerides 175 H Preliminary micro results at discharge 04/06/17 18:54 Blood Culture - Preliminary Blood 04/06/17 19:04 Blood Culture - Preliminary Blood Medical - DS: A/P - Patient/Caregiver Discharge Instructions Activity: as per physical therapy Diet: Consistent Carbohydrate Additional Instructions: Monitor your blood sugars; your home Lantus has been held as your blood sugars have been low. You are just on as-need short-acting insulin for now. Your home torsemide has been held with your recent renal failure. Monitor for swelling/edema and resume when OK with your PCP. - Follow up Plan Follow up with: Sada Bernard ARNP [Primary Care Provider] - Disposition: Xfer SNF Prognosis: Good Rehab Potential: Good I certify that the patient requires SNF services: Yes Overall status at discharge: patient is progressing back to baseline Medical - DS: Qual - VTE Deep Vein Thrombosis/Pulmonary Embolism Present on Admission: No
== END 2017-04-11 13:35 | DRG 683 ==
LOC: ED 16:49 → ICU 21:20 → SUATTDRO 21:20 → ICU 21:30
PROVIDERS: ADMIT Internal Medicine; ATTEND Internal Medicine

== ENCOUNTER 2018-01-05 16:09 | Inpatient (IN) ==
[2018-01-05] MEDS ORDERED: 0.9 % SODIUM CHLORIDE 1,000 ML IV ONE (16:44)
[2018-01-05 17:16] LABS: ALT/SGPT 7 U/l (0-40); Albumin 4.2 gm/dL (3.2-5.2); Albumin/Globulin Ratio 1.2 (1.0-2.3); Alkaline Phosphatase 109 U/L (39-117); Blood Urea Nitrogen 77 mg/dl (8-23)
[2018-01-05 17:52] LABS: Basophils # (Auto) 0 K/mcL (0.0-0.3); Basophils % (Auto) 0.4 % (0.0-2.0); Eosinophils # (Auto) 0.1 K/mcL (0.0-0.7); Granulocytes % (Auto) 65.6 % (38.0-78.0); Lymphocytes # (Auto) 1.5 K/mcL (1.5-4.8); Lymphocytes % (Auto) 23.1 % (15.5-49.0); Mean Cell Volume 84.1 fL (80.0-100.0); Mean Corpuscular HGB Conc 32.9 g/dL (31.0-36.0); Mean Corpuscular Hemoglobin 27.7 pg (26.0-34.0); Monocytes # (Auto) 0.7 K/mcL (0.1-0.9); Monocytes % (Auto) 9.9 % (1.0-12.0); Platelet Count 93 K/mcL (140-440); RBC 4.56 M/mcL (4.50-5.90); Red Cell Distribution Width 16.4 % (11.5-14.5)
[2018-01-05] MEDS ORDERED: 0.9 % SODIUM CHLORIDE 1,000 ML IV SCH (18:45)
--- NOTE | 2018-01-05 18:48 | Emergency Department Note ---
General Adult HPI - General Chief complaint: Weakness Stated complaint: Falls, confusion, shakey, decreased appetite Time Seen by Provider: 01/05/18 16:35 Source: patient, family Mode of arrival: wheelchair - History of Present Illness HPI Narrative: 62-year-old male presents with 4-5 day history of confusion and seeing things that are not there according to his . She states he is also fallen out of his chair multiple times in the last few days. Yesterday she went to work and he apparently fell out of his chair and told her it took him at least 2 hours to get back up into his chair. He has not been eating as much as normal in the last few days and has been drinking some but not much. He always has some urinary incontinence but the also thinks he could possibly have a UTI and has a strong odor to his urine. States mentally he is just not himself. She also noticed that his right lower extremity, at the below the knee amputation site is red and warm. She just noticed that today and is unsure if it is infected or due to his fall. The patient states he has had chills, unknown fever. No nausea, vomiting, or diarrhea. reports he is more sleepy than normal. States normally he is not confused like this. The last time this happened the way states he was septic and had rhabdomyolysis and was admitted to the hospital and she thinks the same thing is going on now or at least the same presentation. Patient denies any chest pain or shortness of breath. No cough or cold symptoms. Associated symptoms: Reports: confusion, fever/chills, loss of appetite, malaise , weakness. Denies: chest pain, diaphoresis, nausea/vomiting, rash, shortness of breath - Related Data Home Medications Medication Instructions Recorded Confirmed amantadine HCl 100 mg tablet 100 mg PO QDAY tab 11/02/16 01/05/18 aspirin 81 mg tablet 81 mg PO QDAY 11/02/16 01/05/18 atenolol 50 mg tablet 100 mg PO QAM tab 11/02/16 01/05/18 budesonide 90 mcg/actuation breath 2 inh INHALATION .COMPLEX 11/02/16 01/05/18 activated powder inhaler losartan 100 1 tab PO QDAY 11/02/16 01/05/18 mg-hydrochlorothiazide 12.5 mg tablet metformin 500 mg tablet 1,000 mg PO BID 11/02/16 01/05/18 omeprazole 20 mg tablet,delayed 20 mg PO BID 11/02/16 01/05/18 release quetiapine 25 mg tablet 25 mg PO QPM tab 11/02/16 01/05/18 sertraline 100 mg tablet 100 mg PO QDAY 11/02/16 01/05/18 simvastatin 5 mg tablet 2.5 mg PO QPM tab 11/02/16 01/05/18 travoprost 0.004 % eye drops 1 drp OPHTHALMIC QPM 11/02/16 01/05/18 Carbidopa/Levodopa [Carbidopa-Levo 2 each PO TID 04/06/17 01/05/18 25-100 mg Odt] Donepezil [Aricept] 5 mg PO DAILY 04/06/17 01/05/18 Pregabalin [Lyrica] 300 mg PO HS 04/06/17 01/05/18 Insulin Glargine, Human [Lantus] 65 unit SQ BID 07/01/17 01/05/18 Previous Rx's Medication Instructions Recorded Accu-Chek 1 each FS ACHS strip 04/11/17 Acetaminophen [Tylenol] 650 mg PO Q6HP PRN tablet 04/11/17 Insulin Lispro [Humalog] 0 - 6 units SQ ACHS unit 04/11/17 Allergies Allergy/AdvReac Type Severity Reaction Status Date / Time terbinafine [From Lamisil] AdvReac Mild Vomiting Verified 01/05/18 16:09 Review of Systems All systems ED: reviewed and negative except as stated. Past Medical History - Past Medical History [facility] Narrative: Medical History History of echocardiogram (Chronic 06/27/16) History of diagnostic ultrasound (Chronic 06/27/16) Paresthesia (Chronic) Weakness (Chronic) Heartburn (Chronic) Hyperlipidemia (Chronic) Parkinson's disease (Chronic) Sciatica of left side (Chronic) HTN (hypertension) (Chronic) Diabetes mellitus, type II (Chronic) Depression (Chronic) GERD (gastroesophageal reflux disease) (Chronic) Pneumonia (Chronic) Diabetic peripheral neuropathy (Chronic) Mixed incontinence urge and stress (Chronic) Laceration (Chronic) Past Surgical History History of appendectomy (Chronic) Medical history: Reports: coronary artery disease, DM, hyperlipidemia, hypertension, other Surgical history ED: Reports: other (Right below the knee amputation) - Social History smoking status: Never smoker Alcohol use: Reports: None Drug use: Reports: none Physical Exam Limitations: altered mental status (confused and poor memory and historian) General appearance: alert (awake, answers questions and responds appropriately most of the time other than memory), in no apparent distress Head: atraumatic, normocephalic, normal inspection Eye: Present: normal appearance. Absent: conjunctival injection ENT: normal oropharynx, TM's normal bilaterally, normal external ear exam, other (Mucous membranes slightly dry mucous membranes slightly dry) Neck: Present: normal inspection, trachea midline. Absent: tenderness, meningismus Chest: Present: normal inspection, symmetric chest wall rise Respiratory: Present: normal lung sounds bilaterally. Absent: respiratory distress, wheezes, accessory muscle use Cardiovascular: Present: regular rate, normal heart sounds Abdominal: Present: soft, normal bowel sounds. Absent: distention, tenderness, guarding, mass Extremities: Absent: normal inspection (Right below the knee amputation in this distal and has mild edema, redness, and warmth. No induration and skin is intact.) Neurological: Present: alert. Absent: oriented X3 (oriented to person and place but not situation), motor sensory deficit Psychiatric: Present: normal affect, normal mood Skin: Present: warm, dry, intact, normal color, erythema (Please see extremity assessment) Course Course Narrative: The first couple hours patient was here he was stable, much more alert although confused in no short or long. However at about 1900 the patient started becoming very sleepy. He previously had a blood sugar in the low 50s and was given some juice and was brought up to the 80s. Checked his blood sugar again it was down in the low 50s. He was given some juice as well as a half amp of D50 we will continue to monitor his blood sugar every 15 minutes. Patient also started having some PVCs on the monitor. Please see the EKG. He also becoming diaphoretic. We are currently waiting on lactic acid and blood cultures. At 1730 I did speak with the hospitalist, Dr. Walker who agrees to admit patient. Patient currently on his second liter of normal saline. Please see vital sign flow sheet. Vital Signs Temperature 97.4 F 01/05/18 16:10 Pulse Rate 59 L 01/05/18 16:10 Respiratory Rate 18 01/05/18 16:10 Blood Pressure 127/67 01/05/18 16:10 Pulse Oximetry (%) 96 01/05/18 16:10 Temperature 96.8 F L 01/05/18 19:25 Pulse Rate 75 01/05/18 19:25 Respiratory Rate 19 01/05/18 18:57 Blood Pressure 137/71 01/05/18 19:25 Pulse Oximetry (%) 97 01/05/18 19:25 Medical Decision Making - Lab Data Lab results reviewed: Yes I reviewed the patient's lab results. Result diagrams: 01/05/18 16:24 01/05/18 16:24 Lab Results 01/05/18 01/05/18 01/05/18 Range/Units 16:24 16:24 16:24 WBC 6.6 (4.5-11.0) K/mcL RBC 4.56 (4.50-5.90) M/mcL Hgb 12.6 L (13.5-16.5) g/dL Hct 38.3 L (41.0-55.0) % MCV 84.1 (80.0-100.0) fL MCH 27.7 (26.0-34.0) pg MCHC 32.9 (31.0-36.0) g/dL RDW 16.4 H (11.5-14.5) % Plt Count 93 L (140-440) K/mcL MPV 12.6 H (7.4-10.4) fL Gran % 65.6 (38.0-78.0) % Lymph % (Auto) 23.1 (15.5-49.0) % [place] % (Auto) 9.9 (1.0-12.0) % Eos % (Auto) 1.0 (0.0-7.0) % Baso % (Auto) 0.4 (0.0-2.0) % Gran # 4.4 (1.8-8.0) K/mcL Lymph # (Auto) 1.5 (1.5-4.8) K/mcL [place] # (Auto) 0.7 (0.1-0.9) K/mcL Eos # (Auto) 0.1 (0.0-0.7) K/mcL Baso # (Auto) 0 (0.0-0.3) K/mcL Sodium 142 (133-145) mmol/L Potassium 5.2 H (3.3-5.1) mmol/L Chloride 103 (96-108) mmol/L Carbon Dioxide 23 (22-30) mmol/L Anion Gap 16.0 (8-16) BUN 77 H (8-23) mg/dl Creatinine 2.7 H (0.7-1.2) mg/dl GFR Calculation 24 Glucose 70 (70-105) mg/dL Calcium 9.5 (8.6-10.4) mg/dl Total Bilirubin 0.6 (0.0-1.0) mg/dL AST 37 (0-37) U/l ALT 7 (0-40) U/l Alkaline Phosphatase 109 (39-117) U/L Total Creatine Kinase 231 H (24-195) IU/L CK-MB (CK-2) 7.4 H (0-4.9) ng/ml Total Protein 7.8 (5.9-8.4) gm/dL Albumin 4.2 (3.2-5.2) gm/dL Globulin 3.6 (2.2-3.7) gm/dL Albumin/Globulin Ratio 1.2 (1.0-2.3) Urine Color Urine Appearance Urine pH (5.0-9.0) Ur Specific [place] (1.000-1.035) Urine Protein (NEG) mg/dL Urine Glucose (UA) (NEG) mg/dL Urine Ketones (NEG) mg/dL Urine Occult Blood (<0.03) mg/dL Urine Nitrate (NEG) Urine Bilirubin (NEG) mg/dL Urine Urobilinogen (NEG) mg/dL Ur Leukocyte Esterase (NEG) /uL 01/05/18 Range/Units 18:31 WBC (4.5-11.0) K/mcL RBC (4.50-5.90) M/mcL Hgb (13.5-16.5) g/dL Hct (41.0-55.0) % MCV (80.0-100.0) fL MCH (26.0-34.0) pg MCHC (31.0-36.0) g/dL RDW (11.5-14.5) % Plt Count (140-440) K/mcL MPV (7.4-10.4) fL Gran % (38.0-78.0) % Lymph % (Auto) (15.5-49.0) % [place] % (Auto) (1.0-12.0) % Eos % (Auto) (0.0-7.0) % Baso % (Auto) (0.0-2.0) % Gran # (1.8-8.0) K/mcL Lymph # (Auto) (1.5-4.8) K/mcL [place] # (Auto) (0.1-0.9) K/mcL Eos # (Auto) (0.0-0.7) K/mcL Baso # (Auto) (0.0-0.3) K/mcL Sodium (133-145) mmol/L Potassium (3.3-5.1) mmol/L Chloride (96-108) mmol/L Carbon Dioxide (22-30) mmol/L Anion Gap (8-16) BUN (8-23) mg/dl Creatinine (0.7-1.2) mg/dl GFR Calculation Glucose (70-105) mg/dL Calcium (8.6-10.4) mg/dl Total Bilirubin (0.0-1.0) mg/dL AST (0-37) U/l ALT (0-40) U/l Alkaline Phosphatase (39-117) U/L Total Creatine Kinase (24-195) IU/L CK-MB (CK-2) (0-4.9) ng/ml Total Protein (5.9-8.4) gm/dL Albumin (3.2-5.2) gm/dL Globulin (2.2-3.7) gm/dL Albumin/Globulin Ratio (1.0-2.3) Urine Color Yellow Urine Appearance Clear Urine pH 6.0 (5.0-9.0) Ur Specific [place] 1.012 (1.000-1.035) Urine Protein Neg (NEG) mg/dL Urine Glucose (UA) Negative (NEG) mg/dL Urine Ketones Neg (NEG) mg/dL Urine Occult Blood Neg (<0.03) mg/dL Urine Nitrate Neg (NEG) Urine Bilirubin Neg (NEG) mg/dL Urine Urobilinogen Neg (NEG) mg/dL Ur Leukocyte Esterase Neg (NEG) /uL - Radiology Data Radiology results reviewed: Yes I reviewed the patient's radiology results. Disposition Pt seen by RELEASE SPECIALIST/PA only: No Clinical Impression: Fall, Confusion, Dehydration, Elevated BUN, Elevated serum creatinine, Cellulitis of lower extremity, Hypoglycemia Disposition: Xfer As Inpt ([facility]) Condition: Serious Referrals: Sada Bernard ARNP [Primary Care Provider] - Philip Gonzalez MD [Physician] - Time of Disposition: 19:45
[2018-01-05] MEDS ORDERED: MEPERIDINE 50 MG/ML INJECTION IM ONE (18:59)
[2018-01-05] MEDS ORDERED: PROMETHAZINE 50 MG/ML AMPUL IM ONE (18:59)
[2018-01-05] MEDS ORDERED: cefTRIAXone 1 GM VIAL IV ONE (19:12)
[2018-01-05 19:18] LABS: Creatine Kinase MB 7.4 ng/ml (0-4.9)
[2018-01-05 19:37] LABS: Appearance,Urine CLEAR; Bilirubin,Urine NEG (NEG); Color,Urine YELLOW; Glucose,Urine (UA) NEGATIVE (NEG); Leukocyte Esterase,Urine NEG /uL (NEG); Protein,Urine NEG (NEG); Specific Gravity,Urine 1.012 (1.000-1.035); Urine Blood NEG mg/dL (<0.03); Urobilinogen,Urine NEG (NEG)
[2018-01-05] MEDS ORDERED: DEXTROSE 50% 50 ML SYRINGE IV ONE (19:37)
[2018-01-05] MEDS ORDERED: DEXTROSE 50% 50 ML VIAL IV ONE (19:39)
--- NOTE | 2018-01-05 19:47 | Emergency Department Note ---
ED Note Addendum Note Addendum: I have evaluated patient with Mildred case discussed agree with laboratory tests and diagnosis Dr. Gonzalez contacted and patient to be admitted
--- NOTE | 2018-01-05 20:27 | Internal Med History&Physical ---
Medical - H&P: HPI Patient information: Note initiated : 01/05/18 at 8:25 pm Service Date, if different from initiated Date: [] Patient: Abdelrahman Henriquez a 62 y/o M admitted on for Falls, confusion, shakey, decreased appetite. Chief Complaint: [] History of present illness: Mr. Henriquez is a 62 year old M with history of diabetes, hypertension, Parkinson' s disease, status post right below knee amputation, chronic wound of the left leg. The patient was brought into the hospital by his for not doing so well over the last few days. According to the the patient has not been himself for the last 3-4 days, he has had increased frequency of falls, chills, fatigue, weakness, decreased oral intake. She has noticed that the patient has been not so compliant with his medications, did not eat much food yesterday. The patient also has been hallucinating for the last 2 days. Thinking that there is food on the ground, talking to grandchildren when they are not around, knitting and picking on things. The patient was found on the floor for a couple of hours but I am not too sure about this history. Patient's noted that in the past when he has had symptoms like this he has had an infection. And he was admitted at this facility. He also had rhabdomyolysis then. In the ER patient was afebrile, hemodynamically stable. Labs show WBC count of 6.6, hemoglobin 12 platelets 93 which are chronically low. Chemistry shows sodium 142, potassium 5.2 bicarbonate 23 BUN 77 creatinine 2.7 this is a worsening of creatinine for him. Lactic acid is pending, CK level 231. Glucose level is 70. UA negative for urinary tract infection. CT had done official read pending, on my interpretation I can see sinusitis sphenoidal. The notes that the patient also has increased erythema in the right foot stump. There are multiple bruises and minor abrasions on the stump. While in the ED the patient became diaphoretic acutely confused, fingerstick was 54 he has been getting dextrose to help keep his sugars up. Last glucose was 129. Patient on my evaluation was quite drowsy, alert oriented 1-2. The patient denied any acute complaints. He would wake up to verbal commands but go right back to sleep. The patient's noted that he is DO NOT RESUSCITATE. ROS unobtainable: due to mental status Medical - H&P: PMH Medical history: Medical History History of echocardiogram (Chronic 06/27/16) History of diagnostic ultrasound (Chronic 06/27/16) Paresthesia (Chronic) Weakness (Chronic) Heartburn (Chronic) Hyperlipidemia (Chronic) Parkinson's disease (Chronic) Sciatica of left side (Chronic) HTN (hypertension) (Chronic) Diabetes mellitus, type II (Chronic) Depression (Chronic) GERD (gastroesophageal reflux disease) (Chronic) Pneumonia (Chronic) Diabetic peripheral neuropathy (Chronic) Mixed incontinence urge and stress (Chronic) Laceration (Chronic) Surgical history: Past Surgical History History of appendectomy (Chronic) Pertinent family history: Family History Other No pertinent family history Medical - H&P: Meds Home Medications Medication Instructions Recorded Confirmed Type amantadine HCl 100 mg tablet 100 mg PO QDAY tab 11/02/16 01/05/18 History aspirin 81 mg tablet 81 mg PO QDAY 11/02/16 01/05/18 History atenolol 50 mg tablet 100 mg PO QAM tab 11/02/16 01/05/18 History budesonide 90 mcg/actuation breath 2 inh INHALATION .COMPLEX 11/02/16 01/05/18 History activated powder inhaler losartan 100 1 tab PO QDAY 11/02/16 01/05/18 History mg-hydrochlorothiazide 12.5 mg tablet metformin 500 mg tablet 1,000 mg PO BID 11/02/16 01/05/18 History omeprazole 20 mg tablet,delayed 20 mg PO BID 11/02/16 01/05/18 History release quetiapine 25 mg tablet 25 mg PO QPM tab 11/02/16 01/05/18 History sertraline 100 mg tablet 100 mg PO QDAY 11/02/16 01/05/18 History simvastatin 5 mg tablet 2.5 mg PO QPM tab 11/02/16 01/05/18 History travoprost 0.004 % eye drops 1 drp OPHTHALMIC QPM 11/02/16 01/05/18 History Carbidopa/Levodopa [Carbidopa-Levo 2 each PO TID 04/06/17 01/05/18 History 25-100 mg Odt] Donepezil [Aricept] 5 mg PO DAILY 04/06/17 01/05/18 History Pregabalin [Lyrica] 300 mg PO HS 04/06/17 01/05/18 History Accu-Chek 1 each FS ACHS strip 04/11/17 01/05/18 Rx Acetaminophen [Tylenol] 650 mg PO Q6HP PRN tablet 04/11/17 01/05/18 Rx Insulin Lispro [Humalog] 0 - 6 units SQ ACHS unit 04/11/17 01/05/18 Rx Insulin Glargine, Human [Lantus] 65 unit SQ BID 07/01/17 01/05/18 History Allergies Allergy/AdvReac Type Severity Reaction Status Date / Time terbinafine [From Lamisil] AdvReac Mild Vomiting Verified 01/05/18 16:09 Medical - H&P: Exam - Constitutional Vitals: Temp Pulse Resp BP Pulse Ox 96.8 F L 75 17 112/67 97 01/05/18 19:25 01/05/18 19:25 01/05/18 20:14 01/05/18 20:14 01/05/18 19:25 Exam: GENERAL: The patient is a well-developed, well-nourished in no apparent distress, morbidly obese . Is alert and oriented x1-2 [Mohs name knows he is in the hospital]. VITAL SIGNS: Reviewed and as noted elsewhere. HEENT: Head is normocephalic and atraumatic. Extraocular muscles are intact. Pupils are equal, round, and reactive to light. Nares appeared normal. Mouth appears any without lesions. Mucous membranes are dry. NECK: Normal to inspection, Supple, No lymphadenopathy or thyromegaly. LUNGS: Air entry equal on both sides, but decreased, prolonged exp phase, no wheezing, crackles or rhonchi noted. No accessory muscles of respiration, due to habitus anterior exam only. Patient was not to cooperative with exam as he was drowsy. HEART: Regular rate and rhythm normal, S1 and S2 heard, no Gallop, S3 or Rub Noted, systolic murmur in the mitral region and tricuspid region ABDOMEN: Soft, nontender, and nondistended. Positive bowel sounds. No hepatosplenomegaly was noted. EXTREMITIES: No cyanosis, clubbing, rash, lesions. Multiple abrasions noted on the legs. Right leg stump erythema involving the whole stump no loculations no discharge noted. Left leg had edema +1. NEUROLOGIC: Cranial nerves II through XII are grossly intact. Motor and Sensory System Grossly Intact PSYCHIATRIC: Drowsy, wakes up to verbal commands and intermittently cooperative SKIN: No jaundice, No rash noted. Medical - H&P: Reslt - Labs CBC & Chem 7: 01/05/18 16:24 01/05/18 16:24 Labs: Short CBC 01/05/18 Range/Units 16:24 WBC 6.6 (4.5-11.0) K/mcL Hgb 12.6 L (13.5-16.5) g/dL Hct 38.3 L (41.0-55.0) % Plt Count 93 L (140-440) K/mcL BMP 01/05/18 16:24 Sodium 142 Potassium 5.2 H Chloride 103 Carbon Dioxide 23 BUN 77 H Creatinine 2.7 H Glucose 70 Calcium 9.5 Cardiac Enzymes 01/05/18 Range/Units 16:24 Total Creatine Kinase 231 H (24-195) IU/L CK-MB (CK-2) 7.4 H (0-4.9) ng/ml Liver Function 01/05/18 Range/Units 16:24 Total Bilirubin 0.6 (0.0-1.0) mg/dL AST 37 (0-37) U/l ALT 7 (0-40) U/l Alkaline Phosphatase 109 (39-117) U/L Albumin 4.2 (3.2-5.2) gm/dL Urine 01/05/18 Range/Units 18:31 Urine Color Yellow Urine Appearance Clear Urine pH 6.0 (5.0-9.0) Ur Specific [place] 1.012 (1.000-1.035) Urine Protein Neg (NEG) mg/dL Urine Glucose (UA) Negative (NEG) mg/dL Medical - H&P: A/P - Narrative A/P Narrative: A/P Altered Mental status parkinsons disease Acute sinusitis Cellulitis of right stump Acute kidney injury Dementia Hallucinations Hypoglycemia Diabetes mellitus, on insulin HTN s/p right bka chr left foot wound Morbid obesity COPD exacerbation, no wheezing, bu8t has prolonged exp phase, Plan Admit to tele IV fluids, d5LR monitor urine output EKG shows lbbb, left axis, qs pattern ant waves, was surprised to hear ekg issues, xray shows some congestion, marisol lget echo, no old ekg to compare IV vanco and zosyn for cellulitis should also cover sinusitis await blood cultures, D5 LR for low glucose, monitor, hold lantus for now, low glucose a combination of use of lantus, and decreased oral intake IV fluids for renal failurek likely prerenal in nature ams/ hallucinations likely due to infectin, previously had similar presentation. Resume home bp meds in AM Pt likely has myriam but has never got it checked Duonebs for copd. iv st eroids, get abg, if needed will place pt on bipap. DVT hep sq DNR code status Diabetic diet for now. Social History - Social History marital status: - Tobacco smoking status: Never smoker
[2018-01-05] MEDS ORDERED: [UNRECOGNIZED DRUG - OTHER] PO SCH (21:52)
[2018-01-05] MEDS ORDERED: PREGABALIN 150 MG CAPSULE PO SCH (21:52)
[2018-01-05] MEDS ORDERED: SIMVASTATIN 2.5 MG PO SCH (21:52)
[2018-01-05] MEDS ORDERED: DEXTROSE 50% 50 ML VIAL IV PRN (21:52)
[2018-01-05] MEDS ORDERED: QUEtiapine 25 MG TABLET PO SCH (21:52)
[2018-01-05] MEDS ORDERED: VANCOMYCIN PER PHARMACY IV SCH (21:52)
[2018-01-05] MEDS ORDERED: ONDANSETRON 4 MG/2 ML VIAL IV PRN (21:52)
[2018-01-05] MEDS ORDERED: HYDROcodone/APAP 5/325MG TABLET PO PRN (21:52)
[2018-01-05] MEDS ORDERED: NALOXONE HCL 0.4 MG/ML VIAL IV PRN (21:52)
[2018-01-05] MEDS ORDERED: NON FORMULARY MEDICATION 1 DOSE MISCELL (Omeprazole [Omeprazole] 20 MG) PO SCH (21:52)
[2018-01-05] MEDS ORDERED: ACETAMINOPHEN 325 MG TABLET PO PRN (21:52)
[2018-01-05] MEDS ORDERED: VANCOMYCIN 1,500 MG in 0.9 % SODIUM CHLORIDE 500 ML IV ONE (21:52)
[2018-01-05] MEDS ORDERED: TRAVOPROST OPHTH DROPS BOTTLE 2.5ML OU SCH (21:52)
[2018-01-05] MEDS ORDERED: LEVODOPA PO SCH (21:52)
[2018-01-05] MEDS ORDERED: CARBIDOPA PO SCH (21:52)
[2018-01-05] MEDS ORDERED: DEXTROSE 31 GM ORAL.SUSP PO PRN (21:52)
[2018-01-05] MEDS ORDERED: IPRATROPIUM/ALBUTEROL 3 ML AMPUL.NEB NEB ONE (22:32)
[2018-01-05] MEDS: DEXTROSE 5%-LR 1,000 ML IV SCH (22:33)
[2018-01-05] MEDS: 0.9 % SODIUM CHLORIDE 10 ML SYRINGE IV SCH (22:34)
[2018-01-05] MEDS: PIPERACILLIN SODIUM/TAZOBACTAM 3.375 GM in DEXTROSE 5% IN WATER 50 ML IV SCH (22:43)
[2018-01-05] MEDS: INSULIN LISPRO 1 UNIT/0.01 ML UNIT SQ SCH (22:44)
[2018-01-05] MEDS ORDERED: methylPREDNISolone SOD SUCC 125 MG/2 ML VIAL ONE (22:45)
[2018-01-05] MEDS: HEPARIN 5,000 UNIT/ML VIAL SQ SCH (22:47)
[2018-01-05] MEDS: CLOTRIMAZOLE CRM 1% 1 DOSE TUBE TOPICAL SCH (22:48)
[2018-01-05] MEDS: methylPREDNISolone SOD SUCC 125 MG/2 ML VIAL IV SCH (22:50)
[2018-01-05] MEDS ORDERED: HEPARIN 5,000 UNIT/ML VIAL ONE (22:51)
[2018-01-05] MEDS: IPRATROPIUM/ALBUTEROL 3 ML AMPUL.NEB NEB SCH (22:57)
[2018-01-06] MEDS ORDERED: IPRATROPIUM/ALBUTEROL 3 ML AMPUL.NEB NEB ONE (03:04)
[2018-01-06] MEDS: IPRATROPIUM/ALBUTEROL 3 ML AMPUL.NEB NEB SCH ×5 (03:11→23:20)
[2018-01-06] MEDS: PIPERACILLIN SODIUM/TAZOBACTAM 3.375 GM in DEXTROSE 5% IN WATER 50 ML IV SCH ×3 (05:26→21:46)
[2018-01-06 06:03] LABS: Basophils # (Auto) 0 K/mcL (0.0-0.3); Basophils % (Auto) 0.2 % (0.0-2.0); Eosinophils # (Auto) 0 K/mcL (0.0-0.7); Eosinophils % (Auto) 0.1 % (0.0-7.0); Granulocytes % (Auto) 85.6 % (38.0-78.0); Lymphocytes # (Auto) 0.6 K/mcL (1.5-4.8); Mean Cell Volume 84.9 fL (80.0-100.0); Mean Corpuscular HGB Conc 33.2 g/dL (31.0-36.0); Mean Corpuscular Hemoglobin 28.2 pg (26.0-34.0); Monocytes # (Auto) 0.1 K/mcL (0.1-0.9); Monocytes % (Auto) 1.1 % (1.0-12.0); Platelet Count 57 K/mcL (140-440); RBC 4.32 M/mcL (4.50-5.90); Red Cell Distribution Width 16.5 % (11.5-14.5)
[2018-01-06 06:17] LABS: Bilirubin,Direct < 0.2 mg/dL (0.0-0.3)
[2018-01-06 06:21] LABS: ALT/SGPT < 5 U/l (0-40); Albumin 3.6 gm/dL (3.2-5.2); Alkaline Phosphatase 93 U/L (39-117); Blood Urea Nitrogen 69 mg/dl (8-23); Gamma Glutamyl Transpeptidase 23 U/L (8-61); Uric Acid 13.5 mg/dL (2.5-8.0)
[2018-01-06] MEDS: methylPREDNISolone SOD SUCC 125 MG/2 ML VIAL IV SCH (06:54)
[2018-01-06] MEDS: BUDESONIDE 1 PUFF INHALER INH SCH ×2 (07:20→07:58)
[2018-01-06] MEDS: DEXTROSE 5%-LR 1,000 ML IV SCH ×2 (07:21→13:04)
[2018-01-06] MEDS ORDERED: OMEPRAZOLE 20 MG CAPSULE PO SCH (07:30)
--- NOTE | 2018-01-06 07:37 | Cat Scan Report ---
History: Multiple recent falls with decreased level of consciousness TECHNIQUE: The brain was imaged without contrast at 2.5 mm intervals. The radiation exposure was limited using dose reduction technology. Bone windows show no skull fracture. There are age-related degenerative changes with mild generalized cerebral atrophy and prominence of the ventricles. There is no evidence of an acute infarct, hemorrhage, edema or mass effect. Very small old lacunar infarct is present in the head of the right caudate nucleus. These findings have remained stable since 04/06/17. Patient has developed severe sphenoid sinusitis which was not present previously. IMPRESSION: No acute brain injury Severe sphenoid sinusitis Mildred Webber was called with the results Interpreted and Authenticated by: Danie Richardson 01/06/18
--- NOTE | 2018-01-06 07:43 | XRay Report ---
HISTORY: Shakiness, confusion and fell FINDINGS: Laterally in the right lower thorax there is an ill-defined 7 x 11 mm nodular density which was not present on 04/06/17. This could be focal area of atelectasis or lung nodule. There is a thick band of scar tissue above the right upper hilum which was seen on the prior study. The left lung is clear. The heart is borderline enlarged but magnified by portable technique. There is mild prominence of the pulmonary vasculature. No pleural effusion is present. IMPRESSION: Borderline pulmonary vascular congestion Atelectasis versus nodule laterally in the right lower thorax. Follow-up is recommended. Interpreted and Authenticated by: Danie Richardson 01/06/18
[2018-01-06] MEDS: 0.9 % SODIUM CHLORIDE 10 ML SYRINGE IV SCH ×3 (07:55→21:47)
[2018-01-06] MEDS: INSULIN LISPRO 1 UNIT/0.01 ML UNIT SQ SCH ×4 (07:56→22:01)
[2018-01-06] MEDS: CLOTRIMAZOLE CRM 1% 1 DOSE TUBE TOPICAL SCH ×2 (07:58→21:46)
[2018-01-06] MEDS: HEPARIN 5,000 UNIT/ML VIAL SQ SCH (07:58)
[2018-01-06] MEDS ORDERED: DONEPEZIL 10 MG TABLET PO SCH (09:00)
[2018-01-06] MEDS ORDERED: VANCOMYCIN 1,500 MG in 0.9 % SODIUM CHLORIDE 500 ML IV SCH (09:00)
[2018-01-06] MEDS ORDERED: AMANTADINE HCL 100 MG CAPSULE PO SCH (09:00)
[2018-01-06] MEDS ORDERED: CARBIDOPA/LEVODOPA 25/100 TABLET PO SCH (09:00)
[2018-01-06] MEDS ORDERED: ATENOLOL 50 MG TABLET PO SCH (09:00)
[2018-01-06] MEDS ORDERED: SERTRALINE 100 MG TABLET PO SCH (09:00)
[2018-01-06] MEDS ORDERED: ASPIRIN 81 MG TAB.CHEW PO SCH (09:00)
--- NOTE | 2018-01-06 11:47 | Internal Med Progress Note ---
Medical - PN: Subj Patient information: Note initiated : 01/06/18 at 11:44 am Service Date, if different from initiated Date: [] Patient: Abdelrahman Henriquez 62 y/o M admitted on 01/05/18 for Falls, Confusion, Shakey , Decreased Appetite. Chief Complaint: [] Interval history: Mr. Henriquez is a 62 year old M with history of diabetes, hypertension, Parkinson' s disease, status post right below knee amputation, chronic wound of the left leg. The patient was brought into the hospital by his for not doing so well over the last few days. According to the the patient has not been himself for the last 3-4 days, he has had increased frequency of falls, chills, fatigue, weakness, decreased oral intake. She has noticed that the patient has been not so compliant with his medications, did not eat much food yesterday. The patient also has been hallucinating for the last 2 days. Thinking that there is food on the ground, talking to grandchildren when they are not around, knitting and picking on things. The patient was found on the floor for a couple of hours but I am not too sure about this history. Patient's noted that in the past when he has had symptoms like this he has had an infection. And he was admitted at this facility. He also had rhabdomyolysis then. In the ER patient was afebrile, hemodynamically stable. Labs show WBC count of 6.6, hemoglobin 12 platelets 93 which are chronically low. Chemistry shows sodium 142, potassium 5.2 bicarbonate 23 BUN 77 creatinine 2.7 this is a worsening of creatinine for him. Lactic acid is pending, CK level 231. Glucose level is 70. UA negative for urinary tract infection. CT had done official read pending, on my interpretation I can see sinusitis sphenoidal. The notes that the patient also has increased erythema in the right foot stump. There are multiple bruises and minor abrasions on the stump. While in the ED the patient became diaphoretic acutely confused, fingerstick was 54 he has been getting dextrose to help keep his sugars up. Last glucose was 129. Patient on my evaluation was quite drowsy, alert oriented 1-2. The patient denied any acute complaints. He would wake up to verbal commands but go right back to sleep. The patient's noted that he is DO NOT RESUSCITATE. 01/06 Pt seen examined, doing well, no acute complaints or concerns doing well, eating well now, mental status back to baseline xfer to med surg d/c IVF, glucose levels are now high erythema on the right stump much better Pertinent ROS: Denies headache, dizziness Denies chest pain, palpitations Denies cough or shortness of breath Denies abdominal pain, nausea or vomiting. - Constitutional Vitals: Vital Signs Temp Pulse Resp BP Pulse Ox 97.9 F 80 18 116/65 97 01/06/18 06:42 01/06/18 07:39 01/06/18 07:39 01/06/18 06:42 01/06/18 06:42 Period Temp Pulse Resp BP Sys/Leung Pulse Ox Last 24 Hr 96.8 F-97.9 F 34-80 16-22 98-161/57-121 92-100 Intake and Output 01/05/18 01/06/18 01/06/18 21:59 05:59 13:59 Intake Total 1500 / 1500 410 / 410 290 / 290 Output Total 1450 / 1450 700 / 700 Balance 1500 / 1500 -1040 / -1040 -410 / -410 Weight 242 lb 14.4 oz 242 lb 14.4 oz Intake & Output: Intake & Output 01/05/18 01/06/18 01/06/18 21:59 05:59 13:59 Intake Total 1500 / 1500 410 / 410 290 / 290 Output Total 1450 / 1450 700 / 700 Balance 1500 / 1500 -1040 / -1040 -410 / -410 Weight 242 lb 14.4 oz 242 lb 14.4 oz Intake: IV 1500 / 1500 50 / 50 50 / 50 Sodium Chloride 0.9% 1,000 ml @ 1500 / 1500 250 mls/hr IV .Q4H MATT Rx#: [id number] Zosyn 3.375 gm In Dextrose 5% 50 / 50 50 / 50 in Water 50 ml @ 100 mls/hr IV Q8H MATT Rx#:[id number] Oral 360 / 360 240 / 240 Output: Void Amount 1450 / 1450 700 / 700 Other: Meal Breakfast Percent of Meal Consumed 100% Urine Appearance Straight Clear Urine Color Dark Yellow Straight Bright Yellow Exam: Constitutional; Afebrile, cooperative, alert, not in distress. Respiratory system: Air Entry equal on both sides, No crackles or wheezing, no rhonchi. CVS- Rate rhythm regular, S1,S2 heard, no gallop, no rub. Abdomen- Soft nontender abdomen, no organomegaly, no tenderness, no guarding or rigidity, CAR GREASER- AOOx3, moving all extremities, no gross focal deficit noted. Right stump erytema and edema improved. Medical - PN: Obj Da - Labs CBC & Chem 7: 01/06/18 03:37 01/06/18 03:37 Labs: Abnormal Lab Results 01/06/18 01/06/18 01/05/18 03:37 03:37 16:24 RBC 4.32 L Hgb 12.2 L Hct 36.7 L RDW 16.5 H Plt Count 57 L MPV 12.4 H Gran % 85.6 H Lymph % (Auto) 13.0 L Lymph # (Auto) 0.6 L Potassium BUN 69 H Creatinine 2.2 H Glucose 136 H Uric Acid 13.5 H Lactate Dehydrogenase 263 H Total Creatine Kinase 231 H CK-MB (CK-2) 7.4 H Triglycerides 262 H 01/05/18 01/05/18 16:24 16:24 RBC Hgb 12.6 L Hct 38.3 L RDW 16.4 H Plt Count 93 L MPV 12.6 H Gran % Lymph % (Auto) Lymph # (Auto) Potassium 5.2 H BUN 77 H Creatinine 2.7 H Glucose Uric Acid Lactate Dehydrogenase Total Creatine Kinase CK-MB (CK-2) Triglycerides Meds: Medications Acetaminophen (Tylenol) 650 mg PO Q6HP PRN PRN Reason: PAIN/FEVER > 101 Hydrocodone Bitart/Acetaminophen ([place] 5/325mg) 1 tab PO Q4HP PRN PRN Reason: PAIN LEVEL 3-6 Albuterol/Ipratropium (Duoneb) 3 ml NEB Q4HRT PENDING SALE TO [facility] Last Admin: 01/06/18 11:19 Dose: Not Given Amantadine HCl (Amantadine) 100 mg PO DAILY [facility] Last Admin: 01/06/18 07:56 Dose: 100 mg Aspirin (Aspirin) 81 mg PO DAILY [facility]END[facility] Last Admin: 01/06/18 07:57 Dose: 81 mg Atenolol (Tenormin) 100 mg PO QAM PENDING SALE TO [facility] Last Admin: 01/06/18 07:57 Dose: 100 mg Budesonide (Pulmicort) 2 puff INH BID PEND[facility] SALE TO [facility] Last Admin: 01/06/18 07:58 Dose: Not Given Carbidopa/Levodopa (Sinemet 25/100) 2 tab PO TID PENDING SALE TO [facility] Last Admin: 01/06/18 07:57 Dose: 2 tab Clotrimazole (Mycelex Crm 1%) 1 dose TOPICAL BID PENDING SALE TO [facility] Last Admin: 01/06/18 07:58 Dose: Not Given Dextrose (Dextrose 50%) 0 ml IV UD PRN PRN Reason: Hypoglycemia Last Admin: 01/05/18 22:33 Dose: 25 ml Diagnostic Test (Pha) (Accu-Chek) 1 each FS ACHS PEND[facility] SALE TO [facility] Last Admin: 01/06/18 06:59 Dose: 1 each Donepezil HCl (Aricept) 5 mg PO DAILY [facility]END[facility] Last Admin: 01/06/18 07:56 Dose: 5 mg Glucose (Insta-Glucose) 15 gm PO PRN PRN PRN Reason: Hypoglycemia Heparin Sodium (Porcine) (Heparin) 5,000 unit SQ Q12 PENDING SALE TO [facility] Last Admin: 01/06/18 07:58 Dose: Not Given Piperacillin Sod/Tazobactam (Sod 3.375 gm/ Dextrose) 50 mls @ 100 mls/hr IV Q8H PENDING SALE TO [facility] Last Infusion: 01/06/18 06:10 Dose: Infused Vancomycin HCl 1,500 mg/ (Sodium Chloride) 500 mls @ 333.3 mls/hr IV Q24H PENDING SALE TO [facility] Last Admin: 01/06/18 09:05 Dose: 333.3 mls/hr Insulin Human Lispro (Humalog) 0 unit SQ [facility]; Protocol Last Admin: 01/06/18 07:56 Dose: 2 unit Naloxone HCl (Narcan) 0.1 mg IV Q2MIN PRN PRN Reason: Opiate Reversal Omeprazole (Prilosec) 20 mg PO BIDAC PENDING S[facility] TO [facility] Last Admin: 01/06/18 06:54 Dose: 20 mg Ondansetron HCl (Zofran) 4 mg IV Q4HP PRN PRN Reason: Nausea And Vomiting Prednisone (Prednisone) 40 mg PO QAMCC PENDING SALE TO [facility] Pregabalin (Lyrica) 300 mg PO HS [facility]ENDING SALE TO [facility] Last Admin: 01/05/18 22:42 Dose: 300 mg Quetiapine Fumarate (Seroquel) 25 mg PO QPM [facility]END[facility] Last Admin: 01/05/18 22:43 Dose: 25 mg Sertraline HCl (Zoloft) 100 mg PO QDAY [facility]END[facility] Last Admin: 01/06/18 07:58 Dose: 100 mg Simvastatin (Zocor) 2.5 mg PO QPM PENDING SALE TO [facility] Sodium Chloride (Saline Flush) 10 ml IV Q8 [facility]END[facility] Last Admin: 01/06/18 07:55 Dose: 10 ml Travoprost (Travatan Z Ophth Drops) 1 gtt OU QPM PENDING SALE TO [facility] Last Admin: 01/06/18 07:21 Dose: Not Given Vancomycin HCl (Vancomycin Per Pharmacy) 1 order IV UD PENDING SALE TO [facility] Medical - PN: A/P - Time Spent With Patient Total time spent is greater than 50% in coordination of care (as documented) at patient's floor/unit and/or counseling patient: - Narrative A/P Narrative: A/P Altered Mental status parkinsons disease Acute sinusitis Cellulitis of right stump Acute kidney injury Dementia Hallucinations Hypoglycemia Diabetes mellitus, on insulin HTN s/p right bka chr left foot wound Morbid obesity COPD exacerbation, no wheezing, bu8t has prolonged exp phase, Plan xfer to med surg d/c IV fluids, d5LR, pt tolerating po diet well libby function improving. EKG shows lbbb, left axis, qs pattern ant waves, was surprised to hear ekg issues, xray shows some congestion, await echo results. IV vanco and zosyn for cellulitis should also cover sinusitis, cultures pending. hold lantus for now, low glucose a combination of use of lantus, and decreased oral intake, pt glucose is now better, if remaisn well off d5LR will need to resume home dose of lantus, he is eating well. tolerating po well now, monitor renal function, anticipate improvement. ams/ hallucinations likely due to infection, previously had similar presentation , clinically better , some hallucinations likely part of parkinsons disease. Pt likely has myriam but has never got it checked continue duonebs, change iv solumedrol to po prednisone. DVT hep sq DNR code status Diabetic diet for now. Medical - PN: Qual - VTE Deep Vein Thrombosis/Pulmonary Embolism Present on Admission: No
[2018-01-06] MEDS ORDERED: DEXTROSE 50% 50 ML VIAL IV PRN (12:05)
[2018-01-06] MEDS ORDERED: NALOXONE HCL 0.4 MG/ML VIAL IV PRN (12:05)
[2018-01-06] MEDS ORDERED: VANCOMYCIN PER PHARMACY IV SCH (12:05)
[2018-01-06] MEDS ORDERED: HYDROcodone/APAP 5/325MG TABLET PO PRN (12:05)
[2018-01-06] MEDS ORDERED: ACETAMINOPHEN 325 MG TABLET PO PRN (12:05)
[2018-01-06] MEDS ORDERED: ONDANSETRON 4 MG/2 ML VIAL IV PRN (12:05)
[2018-01-06] MEDS ORDERED: DEXTROSE 31 GM ORAL.SUSP PO PRN (12:05)
[2018-01-06] MEDS: CARBIDOPA/LEVODOPA 25/100 TABLET PO SCH ×2 (14:30→21:27)
[2018-01-06] MEDS: OMEPRAZOLE 20 MG CAPSULE PO SCH (16:50)
[2018-01-06] MEDS ORDERED: LYRICA 300 MG PO SCH ×2 (21:00)
[2018-01-06] MEDS ORDERED: SIMVASTATIN 10 MG TABLET PO SCH (21:00)
[2018-01-06] MEDS ORDERED: HEPARIN 5,000 UNIT/ML VIAL SQ SCH (21:00)
[2018-01-06] MEDS ORDERED: QUEtiapine 25 MG TABLET PO SCH ×2 (21:00)
[2018-01-06] MEDS ORDERED: LYRICA 150 MG PO SCH (21:00)
[2018-01-06] MEDS: PREGABALIN 150 MG CAPSULE PO SCH (21:26)
[2018-01-06] MEDS: SIMVASTATIN 10 MG TABLET PO SCH (21:26)
[2018-01-06] MEDS: QUEtiapine 25 MG TABLET PO SCH (21:27)
[2018-01-06] MEDS: TRAVOPROST OPHTH DROPS BOTTLE 2.5ML OU SCH (21:46)
[2018-01-07] MEDS: BUDESONIDE 1 PUFF INHALER INH SCH ×2 (00:11→08:17)
[2018-01-07] MEDS: IPRATROPIUM/ALBUTEROL 3 ML AMPUL.NEB NEB SCH ×6 (02:59→22:34)
[2018-01-07] MEDS: 0.9 % SODIUM CHLORIDE 10 ML SYRINGE IV SCH ×4 (05:17→22:43)
[2018-01-07] MEDS: PIPERACILLIN SODIUM/TAZOBACTAM 3.375 GM in DEXTROSE 5% IN WATER 50 ML IV SCH ×3 (05:17→21:49)
[2018-01-07 06:01] LABS: Basophils # (Auto) 0 K/mcL (0.0-0.3); Basophils % (Auto) 0.3 % (0.0-2.0); Eosinophils # (Auto) 0 K/mcL (0.0-0.7); Eosinophils % (Auto) 0.7 % (0.0-7.0); Granulocytes % (Auto) 74.7 % (38.0-78.0); Lymphocytes # (Auto) 1.1 K/mcL (1.5-4.8); Lymphocytes % (Auto) 17.1 % (15.5-49.0); Mean Cell Volume 85.1 fL (80.0-100.0); Mean Corpuscular HGB Conc 33.4 g/dL (31.0-36.0); Mean Corpuscular Hemoglobin 28.4 pg (26.0-34.0); Monocytes # (Auto) 0.4 K/mcL (0.1-0.9); Monocytes % (Auto) 7.2 % (1.0-12.0); Platelet Count 67 K/mcL (140-440); RBC 4.33 M/mcL (4.50-5.90); Red Cell Distribution Width 16.6 % (11.5-14.5)
[2018-01-07 06:28] LABS: ALT/SGPT 6 U/l (0-40); Albumin 3.6 gm/dL (3.2-5.2); Alkaline Phosphatase 100 U/L (39-117); Bilirubin,Direct < 0.2 mg/dL (0.0-0.3); Blood Urea Nitrogen 49 mg/dl (8-23); Gamma Glutamyl Transpeptidase 25 U/L (8-61)
[2018-01-07] MEDS: OMEPRAZOLE 20 MG CAPSULE PO SCH ×2 (07:06→16:40)
[2018-01-07] MEDS: INSULIN LISPRO 1 UNIT/0.01 ML UNIT SQ SCH ×4 (07:25→21:57)
[2018-01-07] MEDS ORDERED: predniSONE 20 MG TABLET PO SCH (08:00)
[2018-01-07] MEDS: predniSONE 20 MG TABLET PO SCH (08:11)
[2018-01-07] MEDS: ATENOLOL 50 MG TABLET PO SCH (08:12)
[2018-01-07] MEDS: CARBIDOPA/LEVODOPA 25/100 TABLET PO SCH ×3 (08:12→21:48)
[2018-01-07] MEDS: DONEPEZIL 10 MG TABLET PO SCH (08:12)
[2018-01-07] MEDS: AMANTADINE HCL 100 MG CAPSULE PO SCH (08:12)
[2018-01-07] MEDS: SERTRALINE 100 MG TABLET PO SCH (08:13)
[2018-01-07] MEDS: PREGABALIN 150 MG CAPSULE PO SCH ×2 (08:13→21:48)
[2018-01-07] MEDS: ASPIRIN 81 MG TAB.CHEW PO SCH (08:13)
[2018-01-07] MEDS: CLOTRIMAZOLE CRM 1% 1 DOSE TUBE TOPICAL SCH ×2 (08:17→21:49)
[2018-01-07] MEDS: VANCOMYCIN 1,500 MG in 0.9 % SODIUM CHLORIDE 500 ML IV SCH (10:34)
--- NOTE | 2018-01-07 15:22 | Internal Med Progress Note ---
Medical - PN: Subj Patient information: Note initiated : 01/07/18 at 3:20 pm Service Date, if different from initiated Date: [] Patient: Abdelrahman Henriquez 62 y/o M admitted on 01/05/18 for Falls, Confusion, Shakey , Decreased Appetite. Chief Complaint: [] Interval history: 62 year old M with history of diabetes, hypertension, Parkinson's disease, status post right below knee amputation, chronic wound of the left leg. No acute events o/n. VS stable. Mental status back to baseline. No more hallucination or confusion. Blood sugar improved after lantus was held. No new complaints. States that his LE cellulitis is improving. Additional PMFSH (Level 3 Only): Altered Mental status Parkinson's disease Cellulitis of right stump Acute kidney injury Dementia Hallucinations Diabetes mellitus, on insulin HTN s/p right bka COPD - Constitutional Vitals: Vital Signs Temp Pulse Resp BP Pulse Ox 97.1 F 81 16 149/76 96 01/07/18 11:27 01/07/18 03:15 01/07/18 11:27 01/07/18 11:27 01/07/18 11:27 Period Temp Pulse Resp BP Sys/Leung Pulse Ox Last 24 Hr 97.1 F-98.2 F 73-83 16-24 146-171/76-95 95-98 Intake and Output 01/07/18 01/07/18 01/07/18 05:59 13:59 21:59 Intake Total 1100 / 1100 600 / 600 Output Total 1450 / 1450 400 / 400 Balance -350 / -350 200 / 200 Intake & Output: Intake & Output 01/07/18 01/07/18 01/07/18 05:59 13:59 21:59 Intake Total 1100 / 1100 600 / 600 Output Total 1450 / 1450 400 / 400 Balance -350 / -350 200 / 200 Intake: IV 100 / 100 Zosyn 3.375 gm In Dextrose 5% 100 / 100 in Water 50 ml @ 100 mls/hr IV Q8H [facility] Rx#:[id number] Oral 1000 / 1000 600 / 600 Output: Urine Catheter Amount 525 / 525 Void Amount 925 / 925 400 / 400 # of times incontinent of urine 0 / 0 Other: Meal Lunch Percent of Meal Consumed 100% Feeding Ability Independent Urine Appearance Clear Clear Urine Color Bright Yellow Dark Yellow Urine Odor Normal Normal Stool Size Copious Stool Color Brown Stool Consistency Soft Formed # Voids 1 1 # Bowel Movements 1 # of times incontinent of 0 Bowels Exam: Constitutional: Afebrile, awake, cooperative, alert, in no distress. HEENT: PERRLA, neck supple. Neck: Trachea midline, no JVD. Respiratory system: Clear to auscultation bilaterally, air entry equal on both sides, no crackles or wheezing or rhonchi. CVS: Regular rate and rhythm, S1 S2 heard, no gallop, no rub. Abdomen: Soft, non-tender, non-distended, no organomegaly, no guarding or rigidity, +BS. Extremities: s/p Rt BKA, Rt stump erythema and edema improved. 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 Psych: Mood and affect appropriate. Medical - PN: Obj Da - Labs CBC & Chem 7: 01/07/18 04:05 01/07/18 04:05 Labs: Abnormal Lab Results 01/07/18 01/07/18 01/06/18 04:05 04:05 03:37 RBC 4.33 L Hgb 12.3 L Hct 36.8 L RDW 16.6 H Plt Count 67 L MPV 12.2 H Gran % Lymph % (Auto) Lymph # (Auto) 1.1 L Potassium BUN 49 H 69 H Creatinine 1.5 H 2.2 H Glucose 145 H 136 H Uric Acid 11.0 H 13.5 H Lactate Dehydrogenase 292 H 263 H Total Creatine Kinase CK-MB (CK-2) Triglycerides 375 H 262 H 01/06/18 01/05/18 01/05/18 03:37 16:24 16:24 RBC 4.32 L Hgb 12.2 L Hct 36.7 L RDW 16.5 H Plt Count 57 L MPV 12.4 H Gran % 85.6 H Lymph % (Auto) 13.0 L Lymph # (Auto) 0.6 L Potassium 5.2 H BUN 77 H Creatinine 2.7 H Glucose Uric Acid Lactate Dehydrogenase Total Creatine Kinase 231 H CK-MB (CK-2) 7.4 H Triglycerides 01/05/18 16:24 RBC Hgb 12.6 L Hct 38.3 L RDW 16.4 H Plt Count 93 L MPV 12.6 H Gran % Lymph % (Auto) Lymph # (Auto) Potassium BUN Creatinine Glucose Uric Acid Lactate Dehydrogenase Total Creatine Kinase CK-MB (CK-2) Triglycerides Meds: Medications Acetaminophen (Tylenol) 650 mg PO Q6HP PRN PRN Reason: PAIN/FEVER > 101 Hydrocodone Bitart/Acetaminophen ([place] 5/325mg) 1 tab PO Q4HP PRN PRN Reason: PAIN LEVEL 3-6 Albuterol/Ipratropium (Duoneb) 3 ml NEB Q4HRT [facility] Last Admin: 01/07/18 15:18 Dose: 3 ml Amantadine HCl (Amantadine) 100 mg PO DAILY [facility] Last Admin: 01/07/18 08:12 Dose: 100 mg Aspirin (Aspirin) 81 mg PO DAILY [facility] Last Admin: 01/07/18 08:13 Dose: 81 mg Atenolol (Tenormin) 100 mg PO QAM [facility] Last Admin: 01/07/18 08:12 Dose: 100 mg Budesonide (Pulmicort) 2 puff INH BID [facility] Last Admin: 01/07/18 08:17 Dose: Not Given Carbidopa/Levodopa (Sinemet 25/100) 2 tab PO TID [facility] Last Admin: 01/07/18 14:42 Dose: 2 tab Clotrimazole (Mycelex Crm 1%) 1 dose TOPICAL BID [facility] Last Admin: 01/07/18 08:17 Dose: 1 dose Dextrose (Dextrose 50%) 0 ml IV UD PRN PRN Reason: Hypoglycemia Diagnostic Test (Pha) (Accu-Chek) 1 each FS [facility] Last Admin: 01/07/18 11:18 Dose: 1 each Donepezil HCl (Aricept) 5 mg PO DAILY [facility] Last Admin: 01/07/18 08:12 Dose: 5 mg Glucose (Insta-Glucose) 15 gm PO PRN PRN PRN Reason: Hypoglycemia Piperacillin Sod/Tazobactam (Sod 3.375 gm/ Dextrose) 50 mls @ 100 mls/hr IV Q8H [facility] Last Admin: 01/07/18 13:56 Dose: 100 mls/hr Vancomycin HCl 1,500 mg/ (Sodium Chloride) 500 mls @ 333.3 mls/hr IV Q24H [facility] Last Admin: 01/07/18 10:34 Dose: 333.3 mls/hr Insulin Human Lispro (Humalog) 0 unit SQ [facility]; Protocol Last Admin: 01/07/18 11:19 Dose: 2 unit Naloxone HCl (Narcan) 0.1 mg IV Q2MIN PRN PRN Reason: Opiate Reversal Omeprazole (Prilosec) 20 mg PO BIDAC [facility] Last Admin: 01/07/18 07:06 Dose: 20 mg Ondansetron HCl (Zofran) 4 mg IV Q4HP PRN PRN Reason: Nausea And Vomiting Prednisone (Prednisone) 40 mg PO QAMCC [facility] Last Admin: 01/07/18 08:11 Dose: 40 mg Pregabalin (Lyrica) 450 mg PO HS [facility] Last Admin: 01/06/18 21:26 Dose: 450 mg Pregabalin (Lyrica) 150 mg PO DAILY [facility] Last Admin: 01/07/18 08:13 Dose: 150 mg Quetiapine Fumarate (Seroquel) 25 mg PO QPM [facility] Last Admin: 01/06/18 21:27 Dose: 25 mg Sertraline HCl (Zoloft) 100 mg PO QDAY [facility] Last Admin: 01/07/18 08:13 Dose: 100 mg Simvastatin (Zocor) 2.5 mg PO QPM [facility] Last Admin: 01/06/18 21:26 Dose: 2.5 mg Sodium Chloride (Saline Flush) 10 ml IV Q8 [facility] Last Admin: 01/07/18 13:56 Dose: 10 ml Travoprost (Travatan Z Ophth Drops) 1 gtt OU QPM [facility] Last Admin: 01/06/18 21:46 Dose: 1 gtt Vancomycin HCl (Vancomycin Per Pharmacy) 1 order IV UD [facility] Medical - PN: A/P - Time Spent With Patient Total time spent is greater than 50% in coordination of care (as documented) at patient's floor/unit and/or counseling patient: Greater than 35 minutes - Narrative A/P Narrative: Altered Mental status- resolved Acute sinusitis parkinsons disease Acute sinusitis Cellulitis of right stump Acute kidney injury- resolved Dementia Hallucinations Hypoglycemia- resolved Diabetes mellitus, on insulin HTN s/p right bka chr left foot wound Plan PAT resolved Cont IV vanco and zosyn for cellulitis, should also cover sinusitis, cultures pending. Cont hold lantus for now, low glucose a combination of use of lantus, and decreased oral intake, pt glucose is now better, if remains well off [id number] will need to resume home dose of lantus when he is eating well. ams/ hallucinations likely due to infection, previously had similar presentation , resolved now, some hallucinations likely part of parkinsons disease. Pt likely has myriam but has never got it checked continue duonebs, change iv solumedrol to po prednisone. DVT hep sq DNR code status Diabetic diet for now. Medical - PN: Qual - VTE Deep Vein Thrombosis/Pulmonary Embolism Present on Admission: No
[2018-01-07] MEDS: QUEtiapine 25 MG TABLET PO SCH (21:48)
[2018-01-07] MEDS: TRAVOPROST OPHTH DROPS BOTTLE 2.5ML OU SCH (21:49)
[2018-01-07] MEDS: SIMVASTATIN 10 MG TABLET PO SCH (21:49)
[2018-01-08] MEDS: BUDESONIDE 1 PUFF INHALER INH SCH ×3 (00:28→22:00)
[2018-01-08] MEDS: IPRATROPIUM/ALBUTEROL 3 ML AMPUL.NEB NEB SCH ×6 (02:31→22:00)
[2018-01-08 05:28] LABS: Basophils # (Auto) 0 K/mcL (0.0-0.3); Basophils % (Auto) 0.3 % (0.0-2.0); Eosinophils # (Auto) 0 K/mcL (0.0-0.7); Eosinophils % (Auto) 0.4 % (0.0-7.0); Granulocytes % (Auto) 70.8 % (38.0-78.0); Lymphocytes # (Auto) 1.1 K/mcL (1.5-4.8); Lymphocytes % (Auto) 18.9 % (15.5-49.0); Mean Cell Volume 84.4 fL (80.0-100.0); Mean Corpuscular HGB Conc 33.4 g/dL (31.0-36.0); Mean Corpuscular Hemoglobin 28.2 pg (26.0-34.0); Monocytes # (Auto) 0.5 K/mcL (0.1-0.9); Monocytes % (Auto) 9.6 % (1.0-12.0); Platelet Count 63 K/mcL (140-440); RBC 4.32 M/mcL (4.50-5.90); Red Cell Distribution Width 16.3 % (11.5-14.5)
[2018-01-08 05:52] LABS: ALT/SGPT 5 U/l (0-40); Albumin 3.6 gm/dL (3.2-5.2); Albumin/Globulin Ratio 1.1 (1.0-2.3); Alkaline Phosphatase 102 U/L (39-117); Bilirubin,Direct < 0.2 mg/dL (0.0-0.3); Blood Urea Nitrogen 31 mg/dl (8-23); Gamma Glutamyl Transpeptidase 30 U/L (8-61); Uric Acid 7.3 mg/dL (2.5-8.0)
[2018-01-08] MEDS: PIPERACILLIN SODIUM/TAZOBACTAM 3.375 GM in DEXTROSE 5% IN WATER 50 ML IV SCH ×3 (05:52→21:57)
[2018-01-08] MEDS: 0.9 % SODIUM CHLORIDE 10 ML SYRINGE IV SCH ×3 (05:52→21:59)
[2018-01-08] MEDS: predniSONE 20 MG TABLET PO SCH (08:00)
[2018-01-08] MEDS: INSULIN LISPRO 1 UNIT/0.01 ML UNIT SQ SCH ×4 (08:00→21:57)
[2018-01-08] MEDS: OMEPRAZOLE 20 MG CAPSULE PO SCH ×2 (08:02→16:29)
[2018-01-08] MEDS: ATENOLOL 50 MG TABLET PO SCH (08:03)
[2018-01-08] MEDS: CARBIDOPA/LEVODOPA 25/100 TABLET PO SCH ×3 (08:03→21:58)
[2018-01-08] MEDS: DONEPEZIL 10 MG TABLET PO SCH (08:03)
[2018-01-08] MEDS: ASPIRIN 81 MG TAB.CHEW PO SCH (08:03)
[2018-01-08] MEDS: SERTRALINE 100 MG TABLET PO SCH (08:04)
[2018-01-08] MEDS: PREGABALIN 150 MG CAPSULE PO SCH ×2 (08:04→21:59)
[2018-01-08] MEDS: AMANTADINE HCL 100 MG CAPSULE PO SCH (08:23)
[2018-01-08] MEDS: CLOTRIMAZOLE CRM 1% 1 DOSE TUBE TOPICAL SCH ×2 (08:24→21:58)
[2018-01-08] MEDS: VANCOMYCIN 1,500 MG in 0.9 % SODIUM CHLORIDE 500 ML IV SCH (08:24)
--- NOTE | 2018-01-08 20:33 | Internal Med Progress Note ---
Medical - PN: Subj Patient information: Note initiated : 01/08/18 at 8:30 pm Service Date, if different from initiated Date: [] Patient: Abdelrahman Henriquez 62 y/o M admitted on 01/05/18 for Falls, Confusion, Shaky , Decreased Appetite. Chief Complaint: [] Interval history: 62 year old M with history of diabetes, hypertension, Parkinson's disease, status post right below knee amputation, chronic wound of the left leg. No acute events o/n. VS stable. Mental status back to baseline. No more hallucination or confusion. Blood sugar stable with SSI, off of lantus. No new complaints. Again states today that his LE cellulitis is improving. Additional PMFSH (Level 3 Only): Parkinson's disease Cellulitis of right stump Acute kidney injury Dementia Hallucinations Diabetes mellitus, on insulin HTN s/p right bka COPD - Constitutional Vitals: Vital Signs Temp Pulse Resp BP Pulse Ox 97.7 F 69 20 173/91 97 01/08/18 19:39 01/08/18 19:39 01/08/18 19:39 01/08/18 19:39 01/08/18 19:39 Period Temp Pulse Resp BP Sys/Leung Pulse Ox Last 24 Hr 97.1 F-98.9 F 69-87 16-20 145-173/75-94 95-97 Intake and Output 01/08/18 01/08/18 01/08/18 05:59 13:59 21:59 Intake Total 200 / 200 1030 / 1030 1190 / 1190 Output Total 1250 / 1250 525 / 525 1075 / 1075 Balance -1050 / -1050 505 / 505 115 / 115 Intake & Output: Intake & Output 01/08/18 01/08/18 01/08/18 05:59 13:59 21:59 Intake Total 200 / 200 1030 / 1030 1190 / 1190 Output Total 1250 / 1250 525 / 525 1075 / 1075 Balance -1050 / -1050 505 / 505 115 / 115 Intake: IV 50 / 50 550 / 550 50 / 50 Zosyn 3.375 gm In Dextrose 5% 50 / 50 50 / 50 50 / 50 in Water 50 ml @ 100 mls/hr IV Q8H [facility] Rx#:[id number] Vancomycin 1,500 mg In Sodium 500 / 500 Chloride 0.9% 500 ml @ 333.3 mls/hr IV Q24H [facility] Rx#: [id number] Oral 150 / 150 480 / 480 1140 / 1140 Output: Void Amount 1250 / 1250 525 / 525 1075 / 1075 # of times incontinent of urine 0 / 0 Other: Meal pudding snack Breakfast Dinner Percent of Meal Consumed 100% 100% 100% Feeding Ability Independent Independent Independent Urine Appearance Clear Clear Clear Urine Color Bright Yellow Pale Bright Yellow Urine Odor Normal Normal Stool Size Copious Stool Color Brown Stool Consistency Soft Loose # Voids 1 1 # Bowel Movements 1 # of times incontinent of 0 Bowels Exam: General: Afebrile, awake, cooperative, alert, no distress. HEENT: PERRLA. Neck: Trachea midline, supple, no JVD. Respiratory system: Clear to auscultation bilaterally, air entry equal both sides, no crackles or wheezing or rhonchi. CVS: Regular rate and rhythm, S1 S2 heard, no gallop, no rub. Abdomen: Soft, non-tender, non-distended, no organomegaly, no guarding or rigidity, +BS. Extremities: s/p Rt BKA, Rt stump erythema and edema improved. 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 Psych: Mood and affect appropriate. Medical - PN: Obj Da - Labs CBC & Chem 7: 01/08/18 04:08 01/08/18 04:08 Labs: Abnormal Lab Results 01/08/18 01/08/18 01/07/18 04:08 04:08 04:05 RBC 4.32 L Hgb 12.2 L Hct 36.5 L RDW 16.3 H Plt Count 63 L MPV 11.7 H Gran % Lymph % (Auto) Lymph # (Auto) 1.1 L BUN 31 H 49 H Creatinine 1.5 H Glucose 184 H 145 H Uric Acid 11.0 H Lactate Dehydrogenase 313 H 292 H Triglycerides 495 H 375 H 01/07/18 01/06/18 01/06/18 04:05 03:37 03:37 RBC 4.33 L 4.32 L Hgb 12.3 L 12.2 L Hct 36.8 L 36.7 L RDW 16.6 H 16.5 H Plt Count 67 L 57 L MPV 12.2 H 12.4 H Gran % 85.6 H Lymph % (Auto) 13.0 L Lymph # (Auto) 1.1 L 0.6 L BUN 69 H Creatinine 2.2 H Glucose 136 H Uric Acid 13.5 H Lactate Dehydrogenase 263 H Triglycerides 262 H Meds: Medications Acetaminophen (Tylenol) 650 mg PO Q6HP PRN PRN Reason: PAIN/FEVER > 101 Hydrocodone Bitart/Acetaminophen ([place] 5/325mg) 1 tab PO Q4HP PRN PRN Reason: PAIN LEVEL 3-6 Albuterol/Ipratropium (Duoneb) 3 ml NEB Q4HRT [facility] Last Admin: 01/08/18 18:34 Dose: 3 ml Amantadine HCl (Amantadine) 100 mg PO DAILY [facility] Last Admin: 01/08/18 08:23 Dose: 100 mg Aspirin (Aspirin) 81 mg PO DAILY [facility] Last Admin: 01/08/18 08:03 Dose: 81 mg Atenolol (Tenormin) 100 mg PO QAM [facility] Last Admin: 01/08/18 08:03 Dose: 100 mg Budesonide (Pulmicort) 2 puff INH BID [facility] Last Admin: 01/08/18 08:24 Dose: Not Given Carbidopa/Levodopa (Sinemet 25/100) 2 tab PO TID [facility] Last Admin: 01/08/18 14:32 Dose: 2 tab Clotrimazole (Mycelex Crm 1%) 1 dose TOPICAL BID [facility] Last Admin: 01/08/18 08:24 Dose: Not Given Dextrose (Dextrose 50%) 0 ml IV UD PRN PRN Reason: Hypoglycemia Diagnostic Test (Pha) (Accu-Chek) 1 each FS ACHS [facility] Last Admin: 01/08/18 16:25 Dose: 1 each Donepezil HCl (Aricept) 5 mg PO DAILY [facility] Last Admin: 01/08/18 08:03 Dose: 5 mg Glucose (Insta-Glucose) 15 gm PO PRN PRN PRN Reason: Hypoglycemia Piperacillin Sod/Tazobactam (Sod 3.375 gm/ Dextrose) 50 mls @ 100 mls/hr IV Q8H [facility] Last Infusion: 01/08/18 15:01 Dose: Infused Vancomycin HCl 1,500 mg/ (Sodium Chloride) 500 mls @ 333.3 mls/hr IV Q24H [facility] Last Infusion: 01/08/18 10:00 Dose: Infused Insulin Human Lispro (Humalog) 0 unit SQ ACHS [facility]; Protocol Last Admin: 01/08/18 16:26 Dose: 6 unit Naloxone HCl (Narcan) 0.1 mg IV Q2MIN PRN PRN Reason: Opiate Reversal Omeprazole (Prilosec) 20 mg PO BIDAC [facility] Last Admin: 01/08/18 16:29 Dose: 20 mg Ondansetron HCl (Zofran) 4 mg IV Q4HP PRN PRN Reason: Nausea And Vomiting Prednisone (Prednisone) 40 mg PO QAMCC [facility] Last Admin: 01/08/18 08:00 Dose: 40 mg Pregabalin (Lyrica) 450 mg PO HS [facility] Last Admin: 01/07/18 21:48 Dose: 450 mg Pregabalin (Lyrica) 150 mg PO DAILY [facility] Last Admin: 01/08/18 08:04 Dose: 150 mg Quetiapine Fumarate (Seroquel) 25 mg PO QPM [facility] Last Admin: 01/07/18 21:48 Dose: 25 mg Sertraline HCl (Zoloft) 100 mg PO QDAY [facility] Last Admin: 01/08/18 08:04 Dose: 100 mg Simvastatin (Zocor) 2.5 mg PO QPM [facility] Last Admin: 01/07/18 21:49 Dose: 2.5 mg Sodium Chloride (Saline Flush) 10 ml IV Q8 [facility] Last Admin: 01/08/18 16:25 Dose: 10 ml Travoprost (Travatan Z Ophth Drops) 1 gtt OU QPM [facility] Last Admin: 01/07/18 21:49 Dose: 1 gtt Vancomycin HCl (Vancomycin Per Pharmacy) 1 order IV UD [facility] Medical - PN: A/P - Time Spent With Patient Total time spent is greater than 50% in coordination of care (as documented) at patient's floor/unit and/or counseling patient: Greater than 35 minutes - Narrative A/P Narrative: Altered Mental status- resolved Acute sinusitis parkinsons disease Acute sinusitis Cellulitis of right stump Acute kidney injury- resolved Dementia Hallucinations Hypoglycemia- resolved Diabetes mellitus, on insulin HTN s/p right bka chr left foot wound Plan PAT resolved Cont IV vanco and zosyn for cellulitis, should also cover sinusitis. Cont hold lantus for now, low glucose a combination of use of lantus and decreased oral intake, pt glucose is now better, will need to resume home dose of lantus when he is eating well. will most likely need adjustment to lantus dose as his insulin requirements so far have been much less than his home lantus dose. ams/ hallucinations likely due to infection, previously had similar presentation , resolved now, some hallucinations likely part of parkinsons disease. Pt likely has myriam but has never got it checked continue duonebs, change iv solumedrol to po prednisone. DVT hep sq DNR code status Diabetic diet for now. Medical - PN: Qual - VTE Deep Vein Thrombosis/Pulmonary Embolism Present on Admission: No
[2018-01-08] MEDS: TRAVOPROST OPHTH DROPS BOTTLE 2.5ML OU SCH (21:58)
[2018-01-08] MEDS: SIMVASTATIN 10 MG TABLET PO SCH (21:58)
[2018-01-08] MEDS: QUEtiapine 25 MG TABLET PO SCH (21:58)
[2018-01-09] MEDS: IPRATROPIUM/ALBUTEROL 3 ML AMPUL.NEB NEB SCH ×4 (03:16→19:01)
[2018-01-09] MEDS: PIPERACILLIN SODIUM/TAZOBACTAM 3.375 GM in DEXTROSE 5% IN WATER 50 ML IV SCH ×3 (05:52→22:04)
[2018-01-09] MEDS: 0.9 % SODIUM CHLORIDE 10 ML SYRINGE IV SCH ×3 (05:52→22:04)
[2018-01-09 06:37] LABS: Basophils # (Auto) 0 K/mcL (0.0-0.3); Basophils % (Auto) 0.3 % (0.0-2.0); Eosinophils # (Auto) 0 K/mcL (0.0-0.7); Eosinophils % (Auto) 0.7 % (0.0-7.0); Granulocytes % (Auto) 59.6 % (38.0-78.0); Lymphocytes # (Auto) 1.6 K/mcL (1.5-4.8); Lymphocytes % (Auto) 29.3 % (15.5-49.0); Mean Cell Volume 84.6 fL (80.0-100.0); Mean Corpuscular HGB Conc 33.2 g/dL (31.0-36.0); Mean Corpuscular Hemoglobin 28.1 pg (26.0-34.0); Monocytes # (Auto) 0.6 K/mcL (0.1-0.9); Monocytes % (Auto) 10.1 % (1.0-12.0); Platelet Count 59 K/mcL (140-440); RBC 4.34 M/mcL (4.50-5.90); Red Cell Distribution Width 16.4 % (11.5-14.5)
[2018-01-09] MEDS: OMEPRAZOLE 20 MG CAPSULE PO SCH ×2 (06:57→17:07)
[2018-01-09 07:01] LABS: ALT/SGPT 7 U/l (0-40); Albumin 3.8 gm/dL (3.2-5.2); Albumin/Globulin Ratio 1.1 (1.0-2.3); Alkaline Phosphatase 98 U/L (39-117); Bilirubin,Direct < 0.2 mg/dL (0.0-0.3); Blood Urea Nitrogen 24 mg/dl (8-23); Gamma Glutamyl Transpeptidase 38 U/L (8-61); Uric Acid 6.4 mg/dL (2.5-8.0)
[2018-01-09] MEDS: INSULIN LISPRO 1 UNIT/0.01 ML UNIT SQ SCH ×4 (07:14→22:11)
[2018-01-09] MEDS: DONEPEZIL 10 MG TABLET PO SCH (08:07)
[2018-01-09] MEDS: AMANTADINE HCL 100 MG CAPSULE PO SCH (08:07)
[2018-01-09] MEDS: SERTRALINE 100 MG TABLET PO SCH (08:08)
[2018-01-09] MEDS: CARBIDOPA/LEVODOPA 25/100 TABLET PO SCH ×3 (08:08→22:03)
[2018-01-09] MEDS: ATENOLOL 50 MG TABLET PO SCH (08:08)
[2018-01-09] MEDS: predniSONE 20 MG TABLET PO SCH (08:08)
[2018-01-09] MEDS: ASPIRIN 81 MG TAB.CHEW PO SCH (08:09)
[2018-01-09] MEDS: PREGABALIN 150 MG CAPSULE PO SCH ×2 (08:15→22:03)
[2018-01-09] MEDS: CLOTRIMAZOLE CRM 1% 1 DOSE TUBE TOPICAL SCH ×2 (08:17→22:04)
[2018-01-09] MEDS: BUDESONIDE 1 PUFF INHALER INH SCH ×2 (08:22→22:11)
[2018-01-09] MEDS: VANCOMYCIN 1,500 MG in 0.9 % SODIUM CHLORIDE 500 ML IV SCH (08:35)
--- NOTE | 2018-01-09 11:03 | Internal Med Progress Note ---
Medical - PN: Subj Patient information: Note initiated : 01/09/18 at 10:56 am Service Date, if different from initiated Date: [] Patient: Abdelrahman Henriquez 62 y/o M admitted on 01/05/18 for Falls, Confusion, Shakey , Decreased Appetite. Chief Complaint: [] Interval history: 62 year old M with history of diabetes, hypertension, Parkinson's disease, status post right below knee amputation, chronic wound of the left leg. No acute events o/n. VS stable. Mental status back to baseline. No more hallucination or confusion. Blood sugar stable with SSI, off of lantus. No new complaints. Additional PMFSH (Level 3 Only): Parkinson's disease Cellulitis of right stump Acute kidney injury Dementia Hallucinations Diabetes mellitus, on insulin HTN s/p right bka COPD - Constitutional Vitals: Vital Signs Temp Pulse Resp BP Pulse Ox 97.1 F 79 16 145/77 96 01/09/18 07:06 01/09/18 07:14 01/09/18 07:14 01/09/18 07:06 01/09/18 07:11 Period Temp Pulse Resp BP Sys/Leung Pulse Ox Last 24 Hr 97.1 F-98.1 F 69-79 14-20 145-177/77-94 95-97 Intake and Output 01/08/18 01/09/18 01/09/18 21:59 05:59 13:59 Intake Total 1190 / 1190 100 / 100 590 / 590 Output Total 1075 / 1075 375 / 375 250 / 250 Balance 115 / 115 -275 / -275 340 / 340 Weight 253 lb 11.2 oz Intake & Output: Intake & Output 01/08/18 01/09/18 01/09/18 21:59 05:59 13:59 Intake Total 1190 / 1190 100 / 100 590 / 590 Output Total 1075 / 1075 375 / 375 250 / 250 Balance 115 / 115 -275 / -275 340 / 340 Weight 253 lb 11.2 oz Intake: IV 50 / 50 50 / 50 50 / 50 Zosyn 3.375 gm In Dextrose 5% 50 / 50 50 / 50 50 / 50 in Water 50 ml @ 100 mls/hr IV Q8H [facility] Rx#:[id number] Oral 1140 / 1140 50 / 50 540 / 540 Output: Void Amount 1075 / 1075 375 / 375 250 / 250 # of times incontinent of urine 0 / 0 Other: Meal Dinner Breakfast Percent of Meal Consumed 100% 100% Feeding Ability Independent Assist with Tray Set Up Urine Appearance Clear Clear Urine Color Bright Yellow Pale Urine Odor Normal Normal Stool Size Large Stool Color Brown Stool Consistency Loose # Voids 1 1 # Bowel Movements 1 Exam: General: Afebrile, awake, cooperative, alert, no distress. HEENT: PERRLA. Neck: Trachea midline, supple, no JVD. Respiratory system: Clear to auscultation bilaterally, air entry equal both sides, no crackles or wheezing or rhonchi. CVS: Regular rate and rhythm, S1 S2 heard, no gallop, no rub. Abdomen: Soft, non-tender, non-distended, no organomegaly, no guarding or rigidity, +BS. Extremities: s/p Rt BKA, Rt stump erythema and edema improved, but still moderately present. 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 Psych: Mood and affect appropriate. Medical - PN: Obj Da - Labs CBC & Chem 7: 01/09/18 03:50 01/09/18 03:50 Labs: Abnormal Lab Results 01/09/18 01/09/18 01/08/18 03:50 03:50 04:08 RBC 4.34 L Hgb 12.2 L Hct 36.7 L RDW 16.4 H Plt Count 59 L MPV 11.5 H Lymph # (Auto) BUN 24 H 31 H Creatinine 1.3 H Glucose 191 H 184 H Uric Acid Lactate Dehydrogenase 294 H 313 H Triglycerides 486 H 495 H 01/08/18 01/07/18 01/07/18 04:08 04:05 04:05 RBC 4.32 L 4.33 L Hgb 12.2 L 12.3 L Hct 36.5 L 36.8 L RDW 16.3 H 16.6 H Plt Count 63 L 67 L MPV 11.7 H 12.2 H Lymph # (Auto) 1.1 L 1.1 L BUN 49 H Creatinine 1.5 H Glucose 145 H Uric Acid 11.0 H Lactate Dehydrogenase 292 H Triglycerides 375 H Meds: Medications Acetaminophen (Tylenol) 650 mg PO Q6HP PRN PRN Reason: PAIN/FEVER > 101 Hydrocodone Bitart/Acetaminophen ([place] 5/325mg) 1 tab PO Q4HP PRN PRN Reason: PAIN LEVEL 3-6 Albuterol/Ipratropium (Duoneb) 3 ml NEB Q4HRT [facility] Last Admin: 01/09/18 07:10 Dose: 3 ml Amantadine HCl (Amantadine) 100 mg PO DAILY [facility] Last Admin: 01/09/18 08:07 Dose: 100 mg Aspirin (Aspirin) 81 mg PO DAILY [facility] Last Admin: 01/09/18 08:09 Dose: 81 mg Atenolol (Tenormin) 100 mg PO QAM [facility] Last Admin: 01/09/18 08:08 Dose: 100 mg Budesonide (Pulmicort) 2 puff INH BID [facility] Last Admin: 01/09/18 08:22 Dose: Not Given Carbidopa/Levodopa (Sinemet 25/100) 2 tab PO TID [facility] Last Admin: 01/09/18 08:08 Dose: 2 tab Clotrimazole (Mycelex Crm 1%) 1 dose TOPICAL BID [facility] Last Admin: 01/09/18 08:17 Dose: 1 dose Dextrose (Dextrose 50%) 0 ml IV UD PRN PRN Reason: Hypoglycemia Diagnostic Test (Pha) (Accu-Chek) 1 each FS ACHS [facility] Last Admin: 01/09/18 06:57 Dose: 1 each Donepezil HCl (Aricept) 5 mg PO DAILY [facility] Last Admin: 01/09/18 08:07 Dose: 5 mg Glucose (Insta-Glucose) 15 gm PO PRN PRN PRN Reason: Hypoglycemia Piperacillin Sod/Tazobactam (Sod 3.375 gm/ Dextrose) 50 mls @ 100 mls/hr IV Q8H [facility] Last Infusion: 01/09/18 08:10 Dose: Infused Vancomycin HCl 1,500 mg/ (Sodium Chloride) 500 mls @ 333.3 mls/hr IV Q24H [facility] Last Admin: 01/09/18 08:35 Dose: 333.3 mls/hr Insulin Human Lispro (Humalog) 0 unit SQ ACHS [facility]; Protocol Last Admin: 01/09/18 07:14 Dose: 2 unit Naloxone HCl (Narcan) 0.1 mg IV Q2MIN PRN PRN Reason: Opiate Reversal Omeprazole (Prilosec) 20 mg PO BIDAC [facility] Last Admin: 01/09/18 06:57 Dose: 20 mg Ondansetron HCl (Zofran) 4 mg IV Q4HP PRN PRN Reason: Nausea And Vomiting Prednisone (Prednisone) 40 mg PO QAC [facility] Last Admin: 01/09/18 08:08 Dose: 40 mg Pregabalin (Lyrica) 450 mg PO HS [facility] Last Admin: 01/08/18 21:59 Dose: 450 mg Pregabalin (Lyrica) 150 mg PO DAILY [facility] Last Admin: 01/09/18 08:15 Dose: 150 mg Quetiapine Fumarate (Seroquel) 25 mg PO QPM [facility] Last Admin: 01/08/18 21:58 Dose: 25 mg Sertraline HCl (Zoloft) 100 mg PO QDAY [facility] Last Admin: 01/09/18 08:08 Dose: 100 mg Simvastatin (Zocor) 2.5 mg PO QPM [facility] Last Admin: 01/08/18 21:58 Dose: 2.5 mg Sodium Chloride (Saline Flush) 10 ml IV Q8 [facility] Last Admin: 01/09/18 05:52 Dose: 10 ml Travoprost (Travatan Z Ophth Drops) 1 gtt OU QPM [facility] Last Admin: 01/08/18 21:58 Dose: 1 gtt Vancomycin HCl (Vancomycin Per Pharmacy) 1 order IV UD [facility] Medical - PN: A/P - Time Spent With Patient Total time spent is greater than 50% in coordination of care (as documented) at patient's floor/unit and/or counseling patient: Greater than 35 minutes - Narrative A/P Narrative: Altered Mental status- resolved Acute sinusitis parkinsons disease Acute sinusitis Cellulitis of right stump Acute kidney injury- resolved Dementia Hallucinations Hypoglycemia- resolved Diabetes mellitus, on insulin HTN s/p right bka chr left foot wound Plan PAT resolved Cont IV vanco and zosyn for cellulitis, should also cover sinusitis. Still too early to switch to PO, based on the current level of stump edema and erythema. Cont hold lantus for now, low glucose a combination of use of lantus and decreased oral intake, pt glucose is now better, will need to resume home dose of lantus when he is eating well. will most likely need adjustment to lantus dose as his insulin requirements so far have been much less than his home lantus dose. ams/ hallucinations likely due to infection, previously had similar presentation , resolved now, some hallucinations likely part of parkinsons disease. Pt likely has myriam but has never got it checked continue duonebs, change iv solumedrol to po prednisone. DVT hep sq DNR code status Diabetic diet for now. Medical - PN: Qual - VTE Deep Vein Thrombosis/Pulmonary Embolism Present on Admission: No
[2018-01-09] MEDS: QUEtiapine 25 MG TABLET PO SCH (22:03)
[2018-01-09] MEDS: SIMVASTATIN 10 MG TABLET PO SCH (22:03)
[2018-01-09] MEDS: TRAVOPROST OPHTH DROPS BOTTLE 2.5ML OU SCH (22:04)
[2018-01-10] MEDS: IPRATROPIUM/ALBUTEROL 3 ML AMPUL.NEB NEB SCH ×2 (00:29→07:20)
[2018-01-10] MEDS: 0.9 % SODIUM CHLORIDE 10 ML SYRINGE IV SCH (06:05)
[2018-01-10] MEDS: PIPERACILLIN SODIUM/TAZOBACTAM 3.375 GM in DEXTROSE 5% IN WATER 50 ML IV SCH (06:05)
[2018-01-10 06:51] LABS: ALT/SGPT 6 U/l (0-40); Albumin 3.7 gm/dL (3.2-5.2); Albumin/Globulin Ratio 1.2 (1.0-2.3); Alkaline Phosphatase 85 U/L (39-117); Bilirubin,Direct < 0.2 mg/dL (0.0-0.3); Blood Urea Nitrogen 20 mg/dl (8-23); Gamma Glutamyl Transpeptidase 41 U/L (8-61); Uric Acid 5.3 mg/dL (2.5-8.0)
[2018-01-10] MEDS: DONEPEZIL 10 MG TABLET PO SCH (07:37)
[2018-01-10] MEDS: AMANTADINE HCL 100 MG CAPSULE PO SCH (07:37)
[2018-01-10] MEDS: INSULIN LISPRO 1 UNIT/0.01 ML UNIT SQ SCH ×2 (07:37→12:14)
[2018-01-10] MEDS: ATENOLOL 50 MG TABLET PO SCH (07:38)
[2018-01-10] MEDS: SERTRALINE 100 MG TABLET PO SCH (07:38)
[2018-01-10] MEDS: predniSONE 20 MG TABLET PO SCH (07:38)
[2018-01-10] MEDS: ASPIRIN 81 MG TAB.CHEW PO SCH (07:39)
[2018-01-10] MEDS: CLOTRIMAZOLE CRM 1% 1 DOSE TUBE TOPICAL SCH (07:40)
[2018-01-10] MEDS: OMEPRAZOLE 20 MG CAPSULE PO SCH (07:40)
[2018-01-10] MEDS: PREGABALIN 150 MG CAPSULE PO SCH (07:40)
[2018-01-10] MEDS: CARBIDOPA/LEVODOPA 25/100 TABLET PO SCH (07:40)
[2018-01-10] MEDS: BUDESONIDE 1 PUFF INHALER INH SCH (07:41)
[2018-01-10 07:45] LABS: Basophils # (Auto) 0 K/mcL (0.0-0.3); Basophils % (Auto) 0.1 % (0.0-2.0); Eosinophils # (Auto) 0.1 K/mcL (0.0-0.7); Eosinophils % (Auto) 1.3 % (0.0-7.0); Granulocytes % (Auto) 68.4 % (38.0-78.0); Lymphocytes # (Auto) 1.2 K/mcL (1.5-4.8); Lymphocytes % (Auto) 20.6 % (15.5-49.0); Mean Cell Volume 84.6 fL (80.0-100.0); Mean Corpuscular HGB Conc 33.3 g/dL (31.0-36.0); Mean Corpuscular Hemoglobin 28.1 pg (26.0-34.0); Monocytes # (Auto) 0.5 K/mcL (0.1-0.9); Monocytes % (Auto) 9.6 % (1.0-12.0); Platelet Count 59 K/mcL (140-440); RBC 4.31 M/mcL (4.50-5.90)
[2018-01-10] MEDS: VANCOMYCIN 1,500 MG in 0.9 % SODIUM CHLORIDE 500 ML IV SCH (08:42)
--- NOTE | 2018-01-10 12:38 | Discharge Summary ---
Medical - DS: Prov Patient information: Note initiated : 01/10/18 at 12:32 pm Service Date, if different from initiated Date: [] Patient: Abdelrahman Henriquez 62 y/o M admitted on 01/05/18 for Falls, Confusion, Shakey , Decreased Appetite. Chief Complaint: [] Date of admission: 01/05/18 21:46 Discharge date: 01/10/18 Primary care physician: Sada Bernard Admitting clinician: hPilip Gonzalez Consults: 01/05/18 Consult to Physician [CONS] Stat Comment: Consulting Provider: Philip Gonzalez Reason For Exam: Physician to Consult Discharging clinician: Philip Gonzalez Medical - DS: Meds - Discharge Medications Prescriptions: Cephalexin [Keflex] 500 mg PO QID #36 cap Sulfamethoxazole/Trimethoprim [Bactrim Ds] 1 tab PO BID #18 tab Active and Home Medications: Home Medications amantadine HCl 100 mg tablet 100 mg PO QDAY tab 11/02/16 [History Confirmed Last Taken 07/28/17] aspirin 81 mg tablet 81 mg PO QDAY 11/02/16 [History Confirmed 01/05/18 Last Taken 07/28/17] atenolol 50 mg tablet 100 mg PO QAM tab 11/02/16 [History Confirmed 01/05/18 Last Taken 07/28/17] budesonide 90 mcg/actuation breath activated powder inhaler 2 inh INHALATION BID 11/02/16 [History Confirmed 01/06/18 Last Taken 07/28/17] losartan 100 mg-hydrochlorothiazide 12.5 mg tablet 1 tab PO QDAY 11/02/16 [ History Confirmed 01/05/18 Last Taken 07/28/17] metformin 500 mg tablet 1,000 mg PO BID 11/02/16 [History Confirmed 01/05/18 Last Taken 07/28/17] omeprazole 20 mg tablet,delayed release 20 mg PO BID 11/02/16 [History Confirmed 01/05/18 Last Taken 07/28/17] quetiapine 25 mg tablet 25 mg PO QPM tab 11/02/16 [History Confirmed 01/05/18 Last Taken 07/28/17] sertraline 100 mg tablet 100 mg PO QDAY 11/02/16 [History Confirmed 01/05/18 Last Taken 07/28/17] simvastatin 5 mg tablet 2.5 mg PO QPM tab 11/02/16 [History Confirmed 01/05/18 Last Taken 07/28/17] travoprost 0.004 % eye drops 1 drp OPHTHALMIC QPM 11/02/16 [History Confirmed Last Taken 07/28/17] Carbidopa/Levodopa [Carbidopa-Levo 25-100 mg Odt] 2 each PO TID 04/06/17 [ History Confirmed 01/05/18 Last Taken 07/28/17] Donepezil [Aricept] 5 mg PO DAILY 04/06/17 [History Confirmed 01/05/18 Last Taken 07/28/17] Accu-Chek 1 each FS ACHS strip 04/11/17 [Rx Confirmed 01/05/18 Last Taken 07/28] Acetaminophen [Tylenol] 650 mg PO Q6HP PRN tablet 04/11/17 [Rx Confirmed Last Taken 07/28/17] Insulin Lispro [Humalog] 0 - 6 units SQ ACHS unit 04/11/17 [Rx Confirmed Last Taken 07/28/17] Insulin Glargine, Human [Lantus] 65 unit SQ BID 07/01/17 [History Confirmed Last Taken 07/28/17] Ambien 5 mg PO HS 01/06/18 [History Confirmed 01/06/18 Last Taken Unknown] Doxycycline Monohydrate 100 mg PO BID 01/06/18 [History Confirmed 01/06/18 Last Taken Unknown] Melatonin 10 mg PO HS 01/06/18 [History Confirmed 01/06/18 Last Taken Unknown] Pregabalin [Lyrica] 150 mg PO DAILY 01/06/18 [History Confirmed 01/06/18 Last Taken Unknown] Pregabalin [Lyrica] 450 mg PO HS 01/06/18 [History Confirmed 01/06/18 Last Taken Unknown] Seroquel 25 mg PO DAILY 01/06/18 [History Confirmed 01/06/18 Last Taken Unknown] Torsemide 20 mg PO TID 01/06/18 [History Confirmed 01/06/18 Last Taken Unknown] Medical - DS: Hosp Hospital course: Mr. Henriquez is a 62 year old M with history of diabetes, hypertension, Parkinson' s disease, status post right below knee amputation, chronic wound of the left leg. The patient was brought into the hospital by his for not doing so well over the last few days. According to the the patient has not been himself for the last 3-4 days, he has had increased frequency of falls, chills, fatigue, weakness, decreased oral intake. She has noticed that the patient has been not so compliant with his medications, did not eat much food yesterday. The patient also has been hallucinating for the last 2 days. Thinking that there is food on the ground, talking to grandchildren when they are not around, knitting and picking on things. The patient was found on the floor for a couple of hours but I am not too sure about this history. Patient's noted that in the past when he has had symptoms like this he has had an infection. And he was admitted at this facility. He also had rhabdomyolysis then. In the ER patient was afebrile, hemodynamically stable. Labs show WBC count of 6.6, hemoglobin 12 platelets 93 which are chronically low. Chemistry shows sodium 142, potassium 5.2 bicarbonate 23 BUN 77 creatinine 2.7 this is a worsening of creatinine for him. Lactic acid is pending, CK level 231. Glucose level is 70. UA negative for urinary tract infection. CT had done official read pending, on my interpretation I can see sinusitis sphenoidal. The notes that the patient also has increased erythema in the right foot stump. There are multiple bruises and minor abrasions on the stump. While in the ED the patient became diaphoretic acutely confused, fingerstick was 54 he has been getting dextrose to help keep his sugars up. Last glucose was 129. Patient on my evaluation was quite drowsy, alert oriented 1-2. The patient denied any acute complaints. He would wake up to verbal commands but go right back to sleep. The patient's noted that he is DO NOT RESUSCITATE. Stump Cellulitis/ Sepsis/ Alerted Mental status- Due to infection, was treated wit anum, with improvement in symptoms, pt has mild erythema, dependent, but induration/ warmth has resolved. Will discharge with total of 2 weeks of abx, bactrim and keflex, total 9 more days. Sinusitis- should be covered with present antibiotics. PAT- resolved at the tiem of discharge. Creawt back to baseline. hallucinations/ confusion/ Increased falls- multifactoria, some role of parkinsons disease also, resolved at the time of discharge The rest of the stay in the hospital was uneventful, at the time of discharge pt was back to baseline, tolerating po diet well, eager to go home. Will be discaharged with , with home health Discharge diagnosis: Cellulitis/ Sinusitis - Time Spent with Patient Total time spent providing and/or coordinating discharge services: Medical - DS: Exam - Constitutional Vitals: Vital Signs Temp Pulse Pulse Pulse Resp BP Pulse Ox 01/10/18 11:28 97.9 F 66 16 142/92 95 01/10/18 07:35 65 16 01/10/18 07:20 96 01/10/18 07:02 97.4 F 68 14 132/88 97 01/10/18 04:00 97.5 F 72 22 160/96 96 01/10/18 00:00 97.4 F 71 24 H 168/99 96 01/09/18 20:00 97.4 F 67 24 H 174/97 97 01/09/18 19:05 78 18 01/09/18 14:58 97 F 71 69 16 171/93 96 Intake and Output 01/09/18 01/10/18 01/10/18 21:59 05:59 13:59 Intake Total 1080 / 1080 150 / 150 650 / 650 Output Total 1405 / 1405 900 / 900 500 / 500 Balance -325 / -325 -750 / -750 150 / 150 Intake: IV 50 / 50 50 / 50 50 / 50 Zosyn 3.375 gm In Dextrose 5% 50 / 50 50 / 50 50 / 50 in Water 50 ml @ 100 mls/hr IV Q8H [facility] Rx#:[id number] Oral 1030 / 1030 100 / 100 600 / 600 Output: Void Amount 1405 / 1405 900 / 900 500 / 500 Other: Meal Dinner Breakfast Percent of Meal Consumed 100% 100% Feeding Ability Independent Independent Urine Appearance Clear Clear Clear Urine Color Pale Pale Dark Yellow Urine Odor Normal Normal Normal # Voids 1 Weight 258 lb 6.4 oz Additional comments: Constitutional; Afebrile, cooperative, alert, not in distress. Respiratory system: Air Entry equal on both sides, No crackles or wheezing, no rhonchi. CVS- Rate rhythm regular, S1,S2 heard, no gallop, no rub. Abdomen- Soft nontender abdomen, no organomegaly, no tenderness, no guarding or rigidity, CHILD CARE COUNSELOR- AOOx3, moving all extremities, no gross focal deficit noted. Medical - DS: Data Labs on day of discharge: Labs from last 24 hours 01/10/18 01/10/18 04:42 04:42 WBC 5.7 RBC 4.31 L Hgb 12.1 L Hct 36.5 L MCV 84.6 MCH 28.1 MCHC 33.3 RDW 16.0 H Plt Count 59 L MPV 12.0 H Gran % 68.4 Lymph % (Auto) 20.6 [place] % (Auto) 9.6 Eos % (Auto) 1.3 Baso % (Auto) 0.1 Gran # 3.9 Lymph # (Auto) 1.2 L [place] # (Auto) 0.5 Eos # (Auto) 0.1 Baso # (Auto) 0 Sodium 141 Potassium 4.3 Chloride 107 Carbon Dioxide 21 L Anion Gap 13.0 BUN 20 Creatinine 1.1 GFR Calculation 72 Glucose 158 H Uric Acid 5.3 Calcium 9.1 Phosphorus 3.7 Magnesium 1.9 Total Bilirubin 0.5 Direct Bilirubin < 0.2 GGT 41 AST 22 ALT 6 Alkaline Phosphatase 85 Lactate Dehydrogenase 289 H Total Protein 6.9 Albumin 3.7 Globulin 3.2 Albumin/Globulin Ratio 1.2 Triglycerides 374 H Preliminary micro results at discharge 01/05/18 17:09 Blood Culture - Preliminary Blood 01/05/18 17:00 Blood Culture - Preliminary Blood Medical - DS: A/P - Patient/Caregiver Discharge Instructions Activity: as per physical therapy, increase activity as tolerated Diet: Cardiac, Consistent Carbohydrate Additional Instructions: No change has been made to your chronic home medication list Please take antibiotics as prescribed for another 9 days, this will complete a 14 day course Follow up with your program director/music director as per previous schedule, dressing changes as per his recommendations Follow up with PCP in 1 week If you notice that you are unable to be safe at home , talk to your pcp regarding admission to a rehab center for muscle strengthening. You can be directly admitted to a rehab center for upto 30 days from discharge. Go to the ER if fever, confusion, chest pain, shortness of breath or any other acute concerning symptom. - Follow up Plan Follow up with: Sada Bernard ARNP [Primary Care Provider] - Philip Gonzalez MD [Physician] - Disposition: Home Health Service Prognosis: Fair Rehab Potential: Fair I certify that the patient requires SNF services: No Overall status at discharge: patient is progressing back to baseline Medical - DS: Qual - VTE Deep Vein Thrombosis/Pulmonary Embolism Present on Admission: No
== END 2018-01-10 13:57 | disposition home health service (06) | DRG 564 ==
LOC: ED 16:09 → ICU 21:46 → MEDSUR 01-06 13:31
PROVIDERS: ADMIT Internal Medicine; ATTEND Internal Medicine

== ENCOUNTER 2018-02-03 13:04 | Inpatient (IN) ==
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
[2018-02-03] MEDS ORDERED: LACTATED RINGERS 1,000 ML IV ONE (13:52)
[2018-02-03] MEDS: 0.9 % SODIUM CHLORIDE 1,000 ML IV SCH ×3 (14:05→19:35)
--- NOTE | 2018-02-03 14:41 | XRay Report ---
CLINICAL INFORMATION: Confusion COMPARISON: 01/05/2018 FINDINGS: The heart size, mediastinum and pulmonary vessels are unremarkable. The lungs are clear. There are no effusions. The bones and soft tissues are within normal limits. IMPRESSION: Normal chest. Interpreted and Authenticated by: Abdelrahman Garcia 02/03/18
[2018-02-03 14:47] LABS: ALT/SGPT 6 U/l (0-40); Albumin 3.9 gm/dL (3.2-5.2); Albumin/Globulin Ratio 1.1 (1.0-2.3); Alkaline Phosphatase 115 U/L (39-117); Blood Urea Nitrogen 71 mg/dl (8-23); C-Reactive Protein 0.8 mg/dl (0.0-0.8)
[2018-02-03 14:48] LABS: Basophils # (Auto) 0 K/mcL (0.0-0.3); Basophils % (Auto) 1.1 % (0.0-2.0); Eosinophils # (Auto) 0 K/mcL (0.0-0.7); Granulocytes % (Auto) 50.3 % (38.0-78.0); Lymphocytes # (Auto) 1.4 K/mcL (1.5-4.8); Lymphocytes % (Auto) 33.6 % (15.5-49.0); Mean Cell Volume 83.8 fL (80.0-100.0); Mean Corpuscular HGB Conc 34.1 g/dL (31.0-36.0); Mean Corpuscular Hemoglobin 28.6 pg (26.0-34.0); Monocytes # (Auto) 0.6 K/mcL (0.1-0.9); Platelet Count 108 K/mcL (140-440); RBC 4.23 M/mcL (4.50-5.90); Red Cell Distribution Width 18.3 % (11.5-14.5)
[2018-02-03 15:28] LABS: Appearance,Urine CLEAR; Bacteria,Urine 0 /hpf (0); Bilirubin,Urine NEG (NEG); Color,Urine YELLOW; Glucose,Urine (UA) NEGATIVE (NEG); Leukocyte Esterase,Urine NEG /uL (NEG); Mucus,Urine FEW /hpf (0); Protein,Urine NEG (NEG); Specific Gravity,Urine 1.012 (1.000-1.035); Urine Blood NEG mg/dL (<0.03); Urine Hyaline Cast 9 /lpf (0-2); Urine RBC 1 /hpf (0-1); Urine Squamous Epithelial Cell < 1 /hpf (0-4); Urine Transitional Epi Cells < 1 /hpf (0-2); Urine WBC 4 /hpf (0-4); Urobilinogen,Urine NEG (NEG)
--- NOTE | 2018-02-03 16:11 | Internal Med History&Physical ---
Medical - H&P: [facility] Patient information: Note initiated : 02/03/18 at 4:05 pm Service Date, if different from initiated Date: [] Patient: Abdelrahman Henriquez a 62 y/o M admitted on for weak, falling, seeing things. Chief Complaint: [] History of present illness: Mr. Henriquez is a 62 year old M Who was admitted about a month ago for acute kidney injury altered mental status with hallucinations cellulitis of his stump on the right. Discussions about rehab at that time took place but patient refused he was sent home with home health and per but she is been unable to care for him. She and the patient reports falls he has been weak since discharge. His is unable to maneuver him given its size. He has insufficient oral intake on top of being on diuretics. He has been on what appears to be Bactrim placed by director of revenue cycle management for recurrent infections of his left foot. He has had some visual hallucination which is not naturally uncommon for him but has been worse this past month. He follows with Dr. Hilton's for his Parkinson's. Patient has had failure to thrive at home. In the ER was found to have acute kidney injury. And felt to be unsafe at home. He denies any chest pains he has some chronic shortness of breath from the sarcoidosis. states he only has 4 glasses of water a day. No fevers or chills. He is also had some diarrhea since he been on the antibody this past month, but states it has improved some. Review of Systems: Positive for weakness visual hallucinations malaise diarrhea denies headache/ fever/chills/nausea/vomiting/chest or abdominal pain/cough. Remaining 10 point review of systems were reviewed and negative Medical - H&P: [facility] Medical history: Medical History (Last Updated 02/03/18 @ 15:21 by Hardeep Nelson DO) 1st degree AV block (Acute) Left bundle branch block (LBBB) (Acute) Sarcoidosis, lung (Chronic) History of echocardiogram (Chronic 06/27/16) History of diagnostic ultrasound (Chronic 06/27/16) Paresthesia (Chronic) Weakness (Chronic) Heartburn (Chronic) Hyperlipidemia (Chronic) Parkinson's disease (Chronic) Sciatica of left side (Chronic) HTN (hypertension) (Chronic) Diabetes mellitus, type II (Chronic) Depression (Chronic) GERD (gastroesophageal reflux disease) (Chronic) Pneumonia (Chronic) Diabetic peripheral neuropathy (Chronic) Mixed incontinence urge and stress (Chronic) Laceration (Chronic) Past Surgical History (Last Updated 02/03/18 @ 14:04 by Hardeep Nelson DO) Cataract extraction status, left eye (Acute) Cataract extraction status, right eye (Acute) History of lung biopsy (Acute) Status post wrist surgery (Acute) History of right below knee amputation (Chronic) History of appendectomy (Chronic) Family History (Last Updated 02/03/18 @ 14:06 by Hardeep Nelson DO) Father Bladder cancer Mother had diabetes Social History ( Denies tobacco drinks alcohol socially ambulate with a walker and wheelchair lives at home with his currently Medical - H&P: Meds Home Medications Medication Instructions Recorded Confirmed Type amantadine HCl 100 mg tablet 100 mg PO QDAY tab 11/02/16 01/05/18 History aspirin 81 mg tablet 81 mg PO QDAY 11/02/16 01/05/18 History atenolol 50 mg tablet 100 mg PO QAM tab 11/02/16 01/05/18 History budesonide 90 mcg/actuation breath 2 inh INHALATION BID 11/02/16 01/06/18 History activated powder inhaler losartan 100 1 tab PO QDAY 11/02/16 01/05/18 History mg-hydrochlorothiazide 12.5 mg tablet metformin 500 mg tablet 1,000 mg PO BID 11/02/16 01/05/18 History omeprazole 20 mg tablet,delayed 20 mg PO BID 11/02/16 01/05/18 History release quetiapine 25 mg tablet 25 mg PO QPM tab 11/02/16 01/05/18 History sertraline 100 mg tablet 100 mg PO QDAY 11/02/16 01/05/18 History simvastatin 5 mg tablet 2.5 mg PO QPM tab 11/02/16 01/05/18 History travoprost 0.004 % eye drops 1 drp OPHTHALMIC QPM 11/02/16 01/05/18 History Carbidopa/Levodopa [Carbidopa-Levo 2 each PO TID 04/06/17 01/05/18 History 25-100 mg Odt] Donepezil [Aricept] 5 mg PO DAILY 04/06/17 01/05/18 History Accu-Chek 1 each FS ACHS strip 04/11/17 01/05/18 Rx Acetaminophen [Tylenol] 650 mg PO Q6HP PRN tablet 04/11/17 01/05/18 Rx Insulin Lispro [Humalog] 0 - 6 units SQ ACHS unit 04/11/17 01/05/18 Rx Insulin Glargine, Human [Lantus] 65 unit SQ BID 07/01/17 01/05/18 History Ambien 5 mg PO HS 01/06/18 01/06/18 History Melatonin 10 mg PO HS 01/06/18 01/06/18 History Pregabalin [Lyrica] 150 mg PO DAILY 01/06/18 01/06/18 History Pregabalin [Lyrica] 450 mg PO HS 01/06/18 01/06/18 History Seroquel 25 mg PO DAILY 01/06/18 01/06/18 History Torsemide 20 mg PO TID 01/06/18 01/06/18 History Cephalexin [Keflex] 500 mg PO QID #36 cap 01/10/18 Rx Sulfamethoxazole/Trimethoprim 1 tab PO BID #18 tab 01/10/18 Rx [Bactrim Ds] Allergies Allergy/AdvReac Type Severity Reaction Status Date / Time terbinafine [From Lamisil] AdvReac Mild Vomiting Verified 01/05/18 16:09 Medical - H&P: Exam - Constitutional Vitals: Temp Pulse Resp BP Pulse Ox 97.4 F 59 L 22 117/81 98 02/03/18 13:05 02/03/18 15:24 02/03/18 15:02 02/03/18 15:24 02/03/18 15:24 Exam: General: Alert, Awake, No acute Distress HEENT: EOMI, DMM, normocephalic atraumatic, neck supple, pupils equal round reactive light CV: RRR, 1/6 SM, normal s1/s2 Pulm: Clear b/l, no wheezing/rhonchi/rales Abd: soft, nontender, +BS x4, obese Ext: no clubbing/cyanosis/edema, right BKA Neuro: Alert, moves all extremities, decreased sensations left lower extremity from diabetic neuropathy, right BKA Skin: warm/dry Medical - H&P: Reslt - Labs CBC & Chem 7: 02/03/18 13:59 02/03/18 13:59 Labs: Short CBC 02/03/18 Range/Units 13:59 WBC 4.3 L (4.5-11.0) K/mcL Hgb 12.1 L (13.5-16.5) g/dL Hct 35.4 L (41.0-55.0) % Plt Count 108 L (140-440) K/mcL BMP 02/03/18 13:59 Sodium 138 Potassium 5.0 Chloride 100 Carbon Dioxide 19 L BUN 71 H Creatinine 2.6 H Glucose 117 H Calcium 8.7 Liver Function 02/03/18 Range/Units 13:59 Total Bilirubin 0.4 (0.0-1.0) mg/dL AST 22 (0-37) U/l ALT 6 (0-40) U/l Alkaline Phosphatase 115 (39-117) U/L Albumin 3.9 (3.2-5.2) gm/dL Urine 02/03/18 Range/Units 14:57 Urine Color Yellow Urine Appearance Clear Urine pH 6.0 (5.0-9.0) Ur Specific [place] 1.012 (1.000-1.035) Urine Protein Neg (NEG) mg/dL Urine Glucose (UA) Negative (NEG) mg/dL Medical - H&P: A/P - Narrative A/P Narrative: Assessment: *Acute kidney injury on CKD II-III: Prerenal secondary to poor oral intake and diuretic use *Falls/debility/deconditioning/poor functional status: Secondary to underlying comorbidities and recent hospitalization *Parkinson's: Contributor to above *Hallucinations secondary to above, acute on chronic: *Failure to thrive at home: *Chronic wounds: *Diabetes with neuropathy *Dementia, mild: *Sarcoidosis: Is desiring to establish with a joiners supervisor *Obesity *Hypertension: Plan: -IV fluid hydration -Monitor urine output and follow-up renal status -Continue home medications except for hold his diuretics and losartan -Wound care consult -PT OT -Case management for placement -Sliding-scale insulin - -ppx: Heparin/home PPI
[2018-02-03] MEDS ORDERED: ONDANSETRON 4 MG/2 ML VIAL IV PRN (17:31)
[2018-02-03] MEDS ORDERED: ACETAMINOPHEN 325 MG TABLET PO PRN (17:31)
[2018-02-03] MEDS ORDERED: DEXTROSE 50% 50 ML VIAL IV PRN (17:31)
[2018-02-03] MEDS ORDERED: DEXTROSE 31 GM ORAL.SUSP PO PRN (17:31)
[2018-02-03] MEDS: INSULIN LISPRO 1 UNIT/0.01 ML UNIT SQ SCH ×2 (19:16→22:01)
[2018-02-03] MEDS: 0.9 % SODIUM CHLORIDE 10 ML SYRINGE IV SCH ×2 (19:36→22:02)
[2018-02-03] MEDS: CARBIDOPA PO SCH (21:00)
[2018-02-03] MEDS: LEVODOPA PO SCH (21:00)
[2018-02-03] MEDS: HEPARIN 5,000 UNIT/ML VIAL SQ SCH (22:01)
[2018-02-03] MEDS: PREGABALIN 150 MG CAPSULE PO SCH (22:01)
[2018-02-03] MEDS: FAMOTIDINE 20 MG TABLET PO SCH (22:01)
[2018-02-03] MEDS: ACETAMINOPHEN W/CODEINE #3 1 TABLET PO SCH (22:02)
[2018-02-03] MEDS: BUDESONIDE 1 PUFF INHALER INH SCH (22:02)
[2018-02-03] MEDS: MELATONIN 5 MG TABLETS PO SCH (22:07)
[2018-02-04] MEDS: 0.9 % SODIUM CHLORIDE 1,000 ML IV SCH (03:20)
[2018-02-04] MEDS: 0.9 % SODIUM CHLORIDE 10 ML SYRINGE IV SCH ×3 (05:45→21:14)
[2018-02-04 06:38] LABS: ALT/SGPT < 5 U/l (0-40); Albumin 3.6 gm/dL (3.2-5.2); Albumin/Globulin Ratio 1.1 (1.0-2.3); Alkaline Phosphatase 105 U/L (39-117); Bilirubin,Direct < 0.2 mg/dL (0.0-0.3); Blood Urea Nitrogen 67 mg/dl (8-23); Gamma Glutamyl Transpeptidase 33 U/L (8-61); Uric Acid 12.1 mg/dL (2.5-8.0)
--- NOTE | 2018-02-04 06:50 | Internal Med Progress Note ---
Medical - PN: Subj Patient information: Note initiated : 02/04/18 at 6:44 am Service Date, if different from initiated Date: [] Patient: Abdelrahman Henriquez 62 y/o M admitted on 02/03/18 for weak, falling, seeing things. Chief Complaint: [] Interval history: Mr. Henriquez is a 62 year old M Who was admitted about a month ago for acute kidney injury altered mental status with hallucinations cellulitis of his stump on the right. Discussions about rehab at that time took place but patient refused he was sent home with home health and per but she is been unable to care for him. She and the patient reports falls he has been weak since discharge. His is unable to maneuver him given its size. He has insufficient oral intake on top of being on diuretics. He has been on what appears to be Bactrim placed by family worker for recurrent infections of his left foot. He has had some visual hallucination which is not naturally uncommon for him but has been worse this past month. He follows with Dr. Hilton's for his Parkinson's. Patient has had failure to thrive at home. In the ER was found to have acute kidney injury. And felt to be unsafe at home. He denies any chest pains he has some chronic shortness of breath from the sarcoidosis. states he only has 4 glasses of water a day. No fevers or chills. He is also had some diarrhea since he been on the antibody this past month, but states it has improved some. 02/04 Slept well. No overnight events. No hallucinations. Review of Systems: denies headache/fever/chills/nausea/vomiting/chest or abdominal pain/cough/ dyspnea/diarrhea. Otherwise see above. - Constitutional Vitals: Vital Signs Temp Pulse Resp BP Pulse Ox 97.8 F 69 16 163/51 99 02/04/18 06:40 02/04/18 03:45 02/04/18 06:40 02/04/18 06:40 02/04/18 06:40 Period Temp Pulse Resp BP Sys/Leung Pulse Ox Last 24 Hr 97.3 F-98.0 F 57-116 15-25 75-217/51-174 95-100 Intake and Output 02/03/18 02/04/18 02/04/18 21:59 05:59 13:59 Intake Total 500 / 500 3169 / 3169 Output Total 1025 / 1025 Balance 500 / 500 2144 / 2144 Weight 108.635 kg Intake & Output: Intake & Output 02/03/18 02/04/18 02/04/18 21:59 05:59 13:59 Intake Total 500 / 500 3169 / 3169 Output Total 1025 / 1025 Balance 500 / 500 2144 / 2144 Weight 108.635 kg Intake: IV 500 / 500 969 / 969 Sodium Chloride 0.9% 1,000 ml @ 500 / 500 969 / 969 125 mls/hr IV .Q8H MATT Rx#: [id number] Oral 2200 / 2200 Output: Void Amount 1025 / 1025 Other: Urine Color Bright Yellow Urine Odor Normal # Voids 2 Exam: General: Alert, Awake, No acute Distress HEENT: EOMI, NECK SUPPLE CV: RRR, 2/6 SM, Pulm: Clear b/l, no wheezing/rhonchi/rales Abd: soft, nontender, +BS x4, obese Ext: no clubbing/cyanosis/edema, right BKA Neuro: Alert, moves all extremities, decreased sensations left lower extremity from diabetic neuropathy, right BKA Skin: warm/dry Medical - PN: Obj Da - Labs CBC & Chem 7: 02/04/18 04:00 02/04/18 04:00 Labs: Abnormal Lab Results 02/04/18 02/03/18 02/03/18 04:00 14:57 13:59 WBC RBC Hgb Hct RDW Plt Count MPV [place] % (Auto) Lymph # (Auto) Carbon Dioxide 21 L 19 L Anion Gap 19.0 H BUN 67 H 71 H Creatinine 2.1 H 2.6 H Glucose 117 H Uric Acid 12.1 H Lactate Dehydrogenase 304 H Triglycerides 712 H Hyaline Casts 9 H 02/03/18 13:59 WBC 4.3 L RBC 4.23 L Hgb 12.1 L Hct 35.4 L RDW 18.3 H Plt Count 108 L MPV 11.5 H [place] % (Auto) 14.0 H Lymph # (Auto) 1.4 L Carbon Dioxide Anion Gap BUN Creatinine Glucose Uric Acid Lactate Dehydrogenase Triglycerides Hyaline Casts Meds: Medications Acetaminophen (Tylenol) 650 mg PO Q6HP PRN PRN Reason: PAIN/FEVER > 101 Acetaminophen/Codeine Phosphate (Tylenol #3) 2 tab PO HS [facility] Last Admin: 02/03/18 22:02 Dose: 2 tab Aspirin (Aspirin) 81 mg PO DAILY [facility] Atenolol (Tenormin) 100 mg PO QAM [facility] Budesonide (Pulmicort) 2 puff INH BID [facility] Last Admin: 02/03/18 22:02 Dose: Not Given Dextrose (Dextrose 50%) 0 ml IV UD PRN PRN Reason: Hypoglycemia Diagnostic Test (Pha) (Accu-Chek) 1 each FS ACHS [facility] Last Admin: 02/03/18 22:01 Dose: 1 each Donepezil HCl (Aricept) 5 mg PO DAILY [facility] Famotidine (Pepcid) 20 mg PO HS [facility] Last Admin: 02/03/18 22:01 Dose: 20 mg Glucose (Insta-Glucose) 15 gm PO PRN PRN PRN Reason: Hypoglycemia Heparin Sodium (Porcine) (Heparin) 5,000 unit SQ Q12 [facility] Last Admin: 02/03/18 22:01 Dose: 5,000 unit Sodium Chloride (Sodium Chloride 0.9%) 1,000 mls @ 125 mls/hr IV .Q8H [facility] Stop: 02/04/18 09:30 Last Admin: 02/04/18 03:20 Dose: 125 mls/hr Insulin Human Lispro (Humalog) 0 unit SQ [facility]; Protocol Last Admin: 02/03/18 22:01 Dose: 2 unit Non-Formulary Medication (Amantadine Hcl [Amantadine]) 100 mg PO QDAY [facility] Ondansetron HCl (Zofran) 4 mg IV Q6HP PRN PRN Reason: Nausea And Vomiting Carbidopa/Levodopa ( Rytary) Er 23.75 Mg/95 Mg Capsules 1 dose PO TID [facility] Last Admin: 02/03/18 21:00 Dose: 1 dose Melatonin 5 Mg (Tablets) 1 dose PO HS [facility] Last Admin: 02/03/18 22:07 Dose: Not Given Pregabalin (Lyrica) 150 mg PO BID [facility] Last Admin: 02/03/18 22:01 Dose: 150 mg Sertraline HCl (Zoloft) 100 mg PO QDAY [facility] Sodium Chloride (Saline Flush) 10 ml IV Q8 [facility] Last Admin: 02/04/18 05:45 Dose: Not Given Travoprost (Travatan Z Ophth Drops) 1 gtt OU HS [facility] Zolpidem Tartrate (Ambien) 5 mg PO HS [facility] Medical - PN: A/P - Time Spent With Patient Total time spent is greater than 50% in coordination of care (as documented) at patient's floor/unit and/or counseling patient: - Narrative A/P Narrative: Assessment: *Acute kidney injury on CKD II-III: Prerenal secondary to poor oral intake and diuretic use -Improving *Falls/debility/deconditioning/poor functional status: Secondary to underlying comorbidities and recent hospitalization *Parkinson's: Contributor to above *Hallucinations secondary to above, acute on chronic: None overnight *Failure to thrive at home: *Chronic wounds: *Diabetes with neuropathy *Dementia, mild: *Sarcoidosis: Is desiring to establish with a gun tester *Obesity *Hypertension: *HLD/Trigs: Plan: -IV fluid hydration -Monitor urine output and follow-up renal status -Continue home medications except for hold his diuretics and losartan -Wound care consult -PT /OT -Case management for placement -Sliding-scale insulin -statin (increase) -f/u outpt with pulm -ppx: Heparin/home PPI Medical - PN: Qual - VTE Deep Vein Thrombosis/Pulmonary Embolism Present on Admission: No
[2018-02-04 07:44] LABS: Basophils # (Auto) 0 K/mcL (0.0-0.3); Basophils % (Auto) 0.7 % (0.0-2.0); Eosinophils # (Auto) 0 K/mcL (0.0-0.7); Eosinophils % (Auto) 1.2 % (0.0-7.0); Granulocytes % (Auto) 47.9 % (38.0-78.0); Lymphocytes # (Auto) 1.5 K/mcL (1.5-4.8); Lymphocytes % (Auto) 35.9 % (15.5-49.0); Mean Cell Volume 84.9 fL (80.0-100.0); Mean Corpuscular HGB Conc 34.1 g/dL (31.0-36.0); Monocytes # (Auto) 0.6 K/mcL (0.1-0.9); Monocytes % (Auto) 14.3 % (1.0-12.0); Platelet Count 93 K/mcL (140-440); RBC 3.97 M/mcL (4.50-5.90); Red Cell Distribution Width 18.2 % (11.5-14.5)
[2018-02-04] MEDS: INSULIN LISPRO 1 UNIT/0.01 ML UNIT SQ SCH ×4 (08:28→21:13)
[2018-02-04] MEDS: HEPARIN 5,000 UNIT/ML VIAL SQ SCH ×2 (08:28→21:13)
[2018-02-04] MEDS: PREGABALIN 150 MG CAPSULE PO SCH ×2 (08:29→21:13)
[2018-02-04] MEDS: ASPIRIN 81 MG TAB.CHEW PO SCH (08:29)
[2018-02-04] MEDS: AMANTADINE HCL 100 MG CAPSULE PO SCH (08:29)
[2018-02-04] MEDS: SERTRALINE 100 MG TABLET PO SCH (08:30)
[2018-02-04] MEDS: ATENOLOL 50 MG TABLET PO SCH (08:30)
[2018-02-04] MEDS: DONEPEZIL 10 MG TABLET PO SCH (08:30)
[2018-02-04] MEDS ORDERED: ATORVASTATIN 20 MG TABLET PO ONE (09:00)
[2018-02-04] MEDS: LEVODOPA PO SCH ×3 (10:59→21:12)
[2018-02-04] MEDS: CARBIDOPA PO SCH ×3 (10:59→21:12)
[2018-02-04] MEDS: BUDESONIDE 1 PUFF INHALER INH SCH ×2 (14:35→22:06)
[2018-02-04] MEDS: MELATONIN 5 MG TABLETS PO SCH (21:11)
[2018-02-04] MEDS: TRAVOPROST OPHTH DROPS BOTTLE 2.5ML OU SCH (21:12)
[2018-02-04] MEDS: ZOLPIDEM 5 MG TABLET PO SCH (21:13)
[2018-02-04] MEDS: FAMOTIDINE 20 MG TABLET PO SCH (21:13)
[2018-02-04] MEDS: ATORVASTATIN 20 MG TABLET PO SCH (21:13)
[2018-02-04] MEDS: ACETAMINOPHEN W/CODEINE #3 1 TABLET PO SCH (21:14)
[2018-02-05 05:34] LABS: Blood Urea Nitrogen 42 mg/dl (8-23)
[2018-02-05] MEDS: 0.9 % SODIUM CHLORIDE 10 ML SYRINGE IV SCH ×3 (05:51→20:22)
--- NOTE | 2018-02-05 06:42 | Internal Med Progress Note ---
Medical - PN: Subj Patient information: Note initiated : 02/05/18 at 6:40 am Service Date, if different from initiated Date: [] Patient: Abdelrahman Henriquez 62 y/o M admitted on 02/03/18 for weak, falling, seeing things. Chief Complaint: [] Interval history: Mr. Henriquez is a 62 year old M Who was admitted about a month ago for acute kidney injury altered mental status with hallucinations cellulitis of his stump on the right. Discussions about rehab at that time took place but patient refused he was sent home with home health and per but she is been unable to care for him. She and the patient reports falls he has been weak since discharge. His is unable to maneuver him given its size. He has insufficient oral intake on top of being on diuretics. He has been on what appears to be Bactrim placed by lunch cook for recurrent infections of his left foot. He has had some visual hallucination which is not naturally uncommon for him but has been worse this past month. He follows with Dr. Hilton's for his Parkinson's. Patient has had failure to thrive at home. In the ER was found to have acute kidney injury. And felt to be unsafe at home. He denies any chest pains he has some chronic shortness of breath from the sarcoidosis. states he only has 4 glasses of water a day. No fevers or chills. He is also had some diarrhea since he been on the antibody this past month, but states it has improved some. 02/04 Slept well. No overnight events. No hallucinations. 02/05 No issues overnight, no hallucinations. Review of Systems: denies headache/fever/chills/nausea/vomiting/chest or abdominal pain/cough/ dyspnea/diarrhea. Otherwise see above. - Constitutional Vitals: Vital Signs Temp Pulse Resp BP Pulse Ox 96.7 F L 73 16 152/90 96 02/05/18 03:50 02/05/18 03:50 02/05/18 03:50 02/05/18 03:50 02/05/18 03:50 Period Temp Pulse Resp BP Sys/Leung Pulse Ox Last 24 Hr 96.7 F-97.7 F 67-76 16-20 134-173/77-96 95-100 Intake and Output 02/04/18 02/05/18 02/05/18 21:59 05:59 13:59 Intake Total 340 / 340 300 / 300 Output Total 950 / 950 476 / 476 Balance -610 / -610 -176 / -176 Weight 110.45 kg Intake & Output: Intake & Output 02/04/18 02/05/18 02/05/18 21:59 05:59 13:59 Intake Total 340 / 340 300 / 300 Output Total 950 / 950 476 / 476 Balance -610 / -610 -176 / -176 Weight 110.45 kg Intake: Oral 340 / 340 300 / 300 Output: Void Amount 950 / 950 475 / 475 # of times incontinent of urine Other: Meal Dinner Percent of Meal Consumed 75% Feeding Ability Independent Urine Appearance Clear Clear Urine Color Bright Yellow Bright Yellow Urine Odor Normal Stool Size Large Stool Color Brown Stool Consistency Normal for Patient # Bowel Movements 1 Exam: General: Alert, Awake, No acute Distress HEENT: EOMI, NECK SUPPLE CV: RRR, 2/6 SM, Pulm: Clear b/l, no wheezing/rhonchi/rales Abd: soft, nontender, +BS x4, obese Ext: no clubbing/cyanosis, 1+ left lower extremity, right BKA Neuro: Alert, moves all extremities, decreased sensations left lower extremity from diabetic neuropathy, right BKA, alert and oriented 3 Skin: warm/dry Medical - PN: Obj Da - Labs CBC & Chem 7: 02/04/18 04:00 02/05/18 04:00 Labs: Abnormal Lab Results 02/05/18 02/04/18 02/04/18 04:00 04:00 04:00 WBC 4.3 L RBC 3.97 L Hgb 11.5 L Hct 33.7 L RDW 18.2 H Plt Count 93 L MPV 12.6 H [place] % (Auto) 14.3 H Lymph # (Auto) Carbon Dioxide 21 L Anion Gap BUN 42 H 67 H Creatinine 1.4 H 2.1 H Glucose 144 H Uric Acid 12.1 H Lactate Dehydrogenase 304 H Triglycerides 712 H Hyaline Casts 02/03/18 02/03/18 02/03/18 14:57 13:59 13:59 WBC 4.3 L RBC 4.23 L Hgb 12.1 L Hct 35.4 L RDW 18.3 H Plt Count 108 L MPV 11.5 H [place] % (Auto) 14.0 H Lymph # (Auto) 1.4 L Carbon Dioxide 19 L Anion Gap 19.0 H BUN 71 H Creatinine 2.6 H Glucose 117 H Uric Acid Lactate Dehydrogenase Triglycerides Hyaline Casts 9 H Meds: Medications Acetaminophen (Tylenol) 650 mg PO Q6HP PRN PRN Reason: PAIN/FEVER > 101 Acetaminophen/Codeine Phosphate (Tylenol #3) 2 tab PO [facility] Last Admin: 02/04/18 21:14 Dose: 2 tab Amantadine HCl (Amantadine) 100 mg PO DAILY [facility] Last Admin: 02/04/18 08:29 Dose: 100 mg Aspirin (Aspirin) 81 mg PO DAILY [facility] Last Admin: 02/04/18 08:29 Dose: 81 mg Atenolol (Tenormin) 100 mg PO QAM [facility] Last Admin: 02/04/18 08:30 Dose: 100 mg Atorvastatin Calcium (Lipitor) 20 mg PO [facility] Last Admin: 02/04/18 21:13 Dose: 20 mg Budesonide (Pulmicort) 2 puff INH BID [facility] Last Admin: 02/04/18 22:06 Dose: Not Given Dextrose (Dextrose 50%) 0 ml IV UD PRN PRN Reason: Hypoglycemia Diagnostic Test (Pha) (Accu-Chek) 1 each FS [facility] Last Admin: 02/04/18 21:03 Dose: 1 each Donepezil HCl (Aricept) 5 mg PO DAILY [facility] Last Admin: 02/04/18 08:30 Dose: 5 mg Famotidine (Pepcid) 20 mg PO [facility] Last Admin: 02/04/18 21:13 Dose: 20 mg Glucose (Insta-Glucose) 15 gm PO PRN PRN PRN Reason: Hypoglycemia Heparin Sodium (Porcine) (Heparin) 5,000 unit SQ Q12 [facility] Last Admin: 02/04/18 21:13 Dose: 5,000 unit Insulin Human Lispro (Humalog) 0 unit SQ [facility]; Protocol Last Admin: 02/04/18 21:13 Dose: 2 unit Ondansetron HCl (Zofran) 4 mg IV Q6HP PRN PRN Reason: Nausea And Vomiting Carbidopa/Levodopa ( Rytary) Er 23.75 Mg/95 Mg Capsules 1 dose PO TID [facility] Last Admin: 02/04/18 21:12 Dose: 1 dose Melatonin 5 Mg (Tablets) 1 dose PO [facility] Last Admin: 02/04/18 21:11 Dose: 1 dose Pneumococcal Polyvalent Vaccine (Pneumovax 23) 0.5 ml IM .ONCE ONE Stop: 02/05/18 10:01 Pregabalin (Lyrica) 150 mg PO BID [facility] Last Admin: 02/04/18 21:13 Dose: 150 mg Sertraline HCl (Zoloft) 100 mg PO QDAY [facility] Last Admin: 02/04/18 08:30 Dose: 100 mg Sodium Chloride (Saline Flush) 10 ml IV Q8 [facility] Last Admin: 02/05/18 05:51 Dose: 10 ml Travoprost (Travatan Z Ophth Drops) 1 gtt OU [facility] Last Admin: 02/04/18 21:12 Dose: 1 gtt Zolpidem Tartrate (Ambien) 5 mg PO [facility] Last Admin: 02/04/18 21:13 Dose: 5 mg Medical - PN: A/P - Time Spent With Patient Total time spent is greater than 50% in coordination of care (as documented) at patient's floor/unit and/or counseling patient: - Narrative A/P Narrative: Assessment: *Acute kidney injury on CKD II-III: Prerenal secondary to poor oral intake and diuretic use -Improving *Falls/debility/deconditioning/poor functional status: Secondary to underlying comorbidities and recent hospitalization *Parkinson's: Contributor to above *Hallucinations secondary to above, acute on chronic: None overnight *Failure to thrive at home: *Chronic wounds: *Diabetes with neuropathy *Dementia, mild: *Sarcoidosis: Is desiring to establish with a kick plate installer *Obesity *Hypertension: *HLD/Trigs: Plan: -s/p IVF's -Continue home medications except for hold his diuretics and losartan -Wound care consult -PT /OT -Case management for placement -Sliding-scale insulin -statin (increased) -f/u outpt with pulm -ppx: Heparin/home PPI Medical - PN: Qual - VTE Deep Vein Thrombosis/Pulmonary Embolism Present on Admission: No
[2018-02-05] MEDS: INSULIN LISPRO 1 UNIT/0.01 ML UNIT SQ SCH ×4 (07:42→20:33)
[2018-02-05] MEDS: SERTRALINE 100 MG TABLET PO SCH (09:06)
[2018-02-05] MEDS: ATENOLOL 50 MG TABLET PO SCH (09:06)
[2018-02-05] MEDS: PREGABALIN 150 MG CAPSULE PO SCH ×2 (09:06→20:21)
[2018-02-05] MEDS: AMANTADINE HCL 100 MG CAPSULE PO SCH (09:07)
[2018-02-05] MEDS: LEVODOPA PO SCH ×3 (09:07→20:21)
[2018-02-05] MEDS: DONEPEZIL 10 MG TABLET PO SCH (09:07)
[2018-02-05] MEDS: ASPIRIN 81 MG TAB.CHEW PO SCH (09:07)
[2018-02-05] MEDS: CARBIDOPA PO SCH ×3 (09:07→20:21)
[2018-02-05] MEDS: HEPARIN 5,000 UNIT/ML VIAL SQ SCH ×2 (09:07→20:21)
[2018-02-05] MEDS ORDERED: PNEUMOCOCCAL 23-VAL P-SAC VAC 0.5 ML VIAL IM ONE (10:00)
--- NOTE | 2018-02-05 10:03 | Discharge Summary ---
Medical - DS: Prov Patient information: Note initiated : 02/05/18 at 9:59 am Service Date, if different from initiated Date: [] Patient: Abdelrahman Henriquez 62 y/o M admitted on 02/03/18 for weak, falling, seeing things. Chief Complaint: [] Date of admission: 02/03/18 17:25 Discharge date: 02/06/18 Primary care physician: Sada Bernard Consults: 02/03/18 Consult to Physician [CONS] Stat Comment: Consulting Provider: Adi Briggs Reason For Exam: Physician to Consult Medical - DS: Meds - Discharge Medications Prescriptions: Atorvastatin [Lipitor] 20 mg PO HS #30 tablet Losartan [Cozaar] 100 mg PO QDAY #30 tablet Active and Home Medications: Home Medications amantadine HCl 100 mg tablet 100 mg PO QDAY tab 11/02/16 [History Confirmed Last Taken 02/03/18 08:00] aspirin 81 mg tablet 81 mg PO QDAY 11/02/16 [History Confirmed 02/03/18 Last Taken 02/03/18 08:00] atenolol 50 mg tablet 100 mg PO QAM tab 11/02/16 [History Confirmed 02/03/18 Last Taken 02/03/18 08:00] budesonide 90 mcg/actuation breath activated powder inhaler 2 inh INHALATION BID 11/02/16 [History Confirmed 02/03/18 Last Taken 02/02/18 20:00] losartan 100 mg-hydrochlorothiazide 12.5 mg tablet 1 tab PO QDAY 11/02/16 [ History Confirmed 02/03/18 Last Taken 02/02/18 20:00] metformin 500 mg tablet 1,000 mg PO BID 11/02/16 [History Confirmed 02/03/18 Last Taken 02/03/18 08:00] omeprazole 20 mg tablet,delayed release 20 mg PO BID 11/02/16 [History Confirmed 02/03/18 Last Taken 02/03/18 08:00] quetiapine 25 mg tablet 25 mg PO QPM tab 11/02/16 [History Confirmed 02/03/18 Last Taken 07/28/17] sertraline 100 mg tablet 100 mg PO QDAY 11/02/16 [History Confirmed 02/03/18 Last Taken 02/02/18 20:00] simvastatin 5 mg tablet 2.5 mg PO QPM tab 11/02/16 [History Confirmed 02/03/18 Last Taken 02/02/18 20:00] travoprost 0.004 % eye drops 1 drp OPHTHALMIC QPM 11/02/16 [History Confirmed Last Taken 02/02/18 20:00] Donepezil [Aricept] 5 mg PO DAILY 04/06/17 [History Confirmed 02/03/18 Last Taken 02/02/18 20:00] Accu-Chek 1 each FS ACHS strip 04/11/17 [Rx Confirmed 02/03/18 Last Taken 02/03 08:00] Acetaminophen [Tylenol] 650 mg PO Q6HP PRN tablet 04/11/17 [Rx Confirmed Last Taken 02/02/18 19:00] Insulin Lispro [Humalog] 0 - 6 units SQ ACHS unit 04/11/17 [Rx Confirmed Last Taken 02/02/18 20:00] Ambien 5 mg PO HS 01/06/18 [History Confirmed 02/03/18 Last Taken 02/02/18 20:00 ] Melatonin 10 mg PO HS 01/06/18 [History Confirmed 02/03/18 Last Taken 02/02/18 20:00] Pregabalin [Lyrica] 150 mg PO BID 01/06/18 [History Confirmed 02/03/18 Last Taken 02/03/18 08:00] Pregabalin [Lyrica] 300 mg PO HS 01/06/18 [History Confirmed 02/03/18 Last Taken 02/02/18 20:00] Torsemide 20 mg PO DAILY 01/06/18 [History Confirmed 02/03/18 Last Taken 20:00] Cephalexin [Keflex] 500 mg PO QID #36 cap 01/10/18 [Rx Confirmed 02/03/18 Last Taken Unknown] Acetaminophen W/Codeine #3 [Tylenol #3] 2 tab PO HS 02/03/18 [History Confirmed 02/03/18 Last Taken 02/02/18 20:00] Carbidopa/Levodopa [Rytary ER 23.75 mg-95 mg Cap] 3 cap PO TID 02/03/18 [ History Confirmed 02/03/18 Last Taken 02/03/18 08:00] Medical - DS: Hosp Hospital course: Mr. Henriquez is a 62 year old M Who was admitted about a month ago for acute kidney injury altered mental status with hallucinations cellulitis of his stump on the right. Discussions about rehab at that time took place but patient refused he was sent home with home health and per but she is been unable to care for him. She and the patient reports falls he has been weak since discharge. His is unable to maneuver him given its size. He has insufficient oral intake on top of being on diuretics. He has been on what appears to be Bactrim placed by sole tacker for recurrent infections of his left foot. He has had some visual hallucination which is not naturally uncommon for him but has been worse this past month. He follows with Dr. Montoya for his Parkinson's. Patient has had failure to thrive at home. In the ER was found to have acute kidney injury. And felt to be unsafe at home. Is unable to care for him and feels he needs rehab. He denies any chest pains he has some chronic shortness of breath from the sarcoidosis. states he only has 4 glasses of water a day. No fevers or chills. He is also had some diarrhea since he been on the antibody this past month, but states it has improved some. 02/04 Slept well. No overnight events. No hallucinations. feeling better 02/05 No issues overnight, no hallucinations. 02/06 Doing well feeling well stable for discharge Discharge diagnosis: Acute kidney injury falls debility failure to thrive at home Secondary discharge diagnosis: Parkinson's chronic wounds diabetes with neuropathy dementia sarcoidosis obesity hypertension hyperlipidemia - Time Spent with Patient Total time spent providing and/or coordinating discharge services: Greater than 30 minutes Medical - DS: Exam - Constitutional Vitals: Vital Signs Temp Pulse Resp BP BP Pulse Ox 02/05/18 06:54 96.5 F L 20 146/91 91 02/05/18 03:50 96.7 F L 73 16 152/90 96 02/04/18 23:20 97.7 F 76 20 173/96 100 02/04/18 18:35 97.5 F 67 16 164/90 98 02/04/18 15:29 97.7 F 16 141/84 95 02/04/18 11:49 97.4 F 20 134/77 98 Intake and Output 02/04/18 02/05/18 02/05/18 21:59 05:59 13:59 Intake Total 340 / 340 300 / 300 720 / 720 Output Total 950 / 950 476 / 476 350 / 350 Balance -610 / -610 -176 / -176 370 / 370 Intake: Oral 340 / 340 300 / 300 720 / 720 Output: Void Amount 950 / 950 475 / 475 350 / 350 # of times incontinent of urine Other: Meal Dinner Breakfast Percent of Meal Consumed 75% 100% Feeding Ability Independent Assist with Tray Set Up Urine Appearance Clear Clear Clear Urine Color Bright Yellow Bright Yellow Pale Urine Odor Normal Stool Size Large Stool Color Brown Stool Consistency Normal for Patient # Bowel Movements 1 Weight 110.45 kg Medical - DS: Data Labs on day of discharge: Labs from last 24 hours 02/05/18 04:00 Sodium 142 Potassium 4.9 Chloride 107 Carbon Dioxide 23 Anion Gap 12.0 BUN 42 H Creatinine 1.4 H GFR Calculation 54 Glucose 144 H Calcium 9.3 Medical - DS: A/P - Patient/Caregiver Discharge Instructions Activity: as per physical therapy Diet: Consistent Carbohydrate Additional Instructions: Referral to see cctv technician for underlying sarcoidosis in the next 1-2 weeks Follow-up with wound care outpt 5-7 days Prescriptions: Atorvastatin [Lipitor] 20 mg PO HS #30 tablet Losartan [Cozaar] 100 mg PO QDAY #30 tablet - Follow up Plan Follow up with: Sada Bernard ARNP [Primary Care Provider] - Disposition: Xfer SNF Prognosis: Fair Rehab Potential: Fair I certify that the patient requires SNF services: Yes Medical - DS: Qual - VTE Deep Vein Thrombosis/Pulmonary Embolism Present on Admission: No
[2018-02-05] MEDS: BUDESONIDE 1 PUFF INHALER INH SCH ×2 (11:27→20:21)
[2018-02-05] MEDS: ATORVASTATIN 20 MG TABLET PO SCH (20:20)
[2018-02-05] MEDS: FAMOTIDINE 20 MG TABLET PO SCH (20:20)
[2018-02-05] MEDS: ZOLPIDEM 5 MG TABLET PO SCH (20:20)
[2018-02-05] MEDS: ACETAMINOPHEN W/CODEINE #3 1 TABLET PO SCH (20:20)
[2018-02-05] MEDS: TRAVOPROST OPHTH DROPS BOTTLE 2.5ML OU SCH (20:21)
[2018-02-05] MEDS: MELATONIN 5 MG TABLETS PO SCH (20:21)
[2018-02-06 06:01] LABS: Blood Urea Nitrogen 35 mg/dl (8-23)
[2018-02-06] MEDS: 0.9 % SODIUM CHLORIDE 10 ML SYRINGE IV SCH (06:07)
[2018-02-06] MEDS: LEVODOPA PO SCH (08:47)
[2018-02-06] MEDS: HEPARIN 5,000 UNIT/ML VIAL SQ SCH (08:47)
[2018-02-06] MEDS: CARBIDOPA PO SCH (08:47)
[2018-02-06] MEDS: ATENOLOL 50 MG TABLET PO SCH (08:48)
[2018-02-06] MEDS: SERTRALINE 100 MG TABLET PO SCH (08:48)
[2018-02-06] MEDS: AMANTADINE HCL 100 MG CAPSULE PO SCH (08:48)
[2018-02-06] MEDS: DONEPEZIL 10 MG TABLET PO SCH (08:48)
[2018-02-06] MEDS: INSULIN LISPRO 1 UNIT/0.01 ML UNIT SQ SCH ×2 (08:48→12:41)
[2018-02-06] MEDS: ASPIRIN 81 MG TAB.CHEW PO SCH (08:49)
[2018-02-06] MEDS: PREGABALIN 150 MG CAPSULE PO SCH (08:49)
[2018-02-06] MEDS: BUDESONIDE 1 PUFF INHALER INH SCH (11:56)
== END 2018-02-06 13:12 | DRG 684 ==
LOC: ED 13:04 → MEDSUR 17:21
PROVIDERS: ADMIT Internal Medicine; ATTEND Internal Medicine

== ENCOUNTER 2018-03-28 23:37 | Inpatient (IN) ==
[2018-03-28] MEDS ORDERED: 0.9 % SODIUM CHLORIDE 1,000 ML IV ONE (23:48)
--- NOTE | 2018-03-28 23:53 | Emergency Department Note ---
Fall HPI - General Chief Complaint: Fall Stated Complaint: fall Time Seen by Provider: 03/28/18 23:42 Source: patient Mode of arrival: wheelchair - History of Present Illness HPI Narrative: Patient has a history of frequent falls states that yesterday he fell 3 times. He had no injuries from these but today she states he has had some increased weakness he has had a history of hallucinations which have gotten worse she states. He was admitted on 02/03/18 for failure to thrive visual disturbance and frequent falls at that time.Blood pressure is 123/71 respirations are 19 pulse is 62 pulse ox 100% his states he has had 4 beers tonight in 6:55 PM.. states he falls a lot because of his Parkinson' s is followed by his neurologist Dr. Hilton's - Related Data Home Medications Medication Instructions Recorded Confirmed amantadine HCl 100 mg tablet 100 mg PO QDAY tab 11/02/16 02/03/18 aspirin 81 mg tablet 81 mg PO QDAY 11/02/16 02/03/18 atenolol 50 mg tablet 100 mg PO QAM tab 11/02/16 02/03/18 budesonide 90 mcg/actuation breath 2 inh INHALATION BID 11/02/16 02/03/18 activated powder inhaler metformin 500 mg tablet 1,000 mg PO BID 11/02/16 02/03/18 omeprazole 20 mg tablet,delayed 20 mg PO BID 11/02/16 02/03/18 release quetiapine 25 mg tablet 25 mg PO QPM tab 11/02/16 02/03/18 sertraline 100 mg tablet 100 mg PO QDAY 11/02/16 02/03/18 travoprost 0.004 % eye drops 1 drp OPHTHALMIC QPM 11/02/16 02/03/18 Donepezil [Aricept] 5 mg PO DAILY 04/06/17 02/03/18 Melatonin 10 mg PO HS 01/06/18 02/03/18 Pregabalin [Lyrica] 150 mg PO BID 01/06/18 02/03/18 Pregabalin [Lyrica] 300 mg PO HS 01/06/18 02/03/18 Torsemide 20 mg PO DAILY 01/06/18 02/03/18 Carbidopa/Levodopa [Rytary ER 3 cap PO TID 02/03/18 02/03/18 23.75 mg-95 mg Cap] Previous Rx's Medication Instructions Recorded Accu-Chek 1 each FS ACHS strip 04/11/17 Acetaminophen [Tylenol] 650 mg PO Q6HP PRN tablet 04/11/17 Insulin Lispro [Humalog] 0 - 6 units SQ ACHS unit 04/11/17 Atorvastatin [Lipitor] 20 mg PO HS #30 tablet 02/05/18 Losartan [Cozaar] 100 mg PO QDAY #30 tablet 02/05/18 Acetaminophen W/Codeine #3 1 - 2 tab PO QHS PRN #20 tab 02/06/18 [Tylenol #3] Zolpidem [Ambien] 5 mg PO HSP PRN #30 tab 02/06/18 Allergies Allergy/AdvReac Type Severity Reaction Status Date / Time terbinafine [From Lamisil] AdvReac Mild Vomiting Verified 01/05/18 16:09 Review of Systems All systems ED: reviewed and negative except as stated. Constitutional: Denies: fever, chills Cardiovascular: Denies: chest pain Respiratory: Denies: shortness of breath Gastrointestinal: Denies: abdominal pain, nausea Genitourinary: Denies: dysuria, frequency, urgency Musculoskeletal: Denies: back pain Integumentary: Denies: rash Neurological: Denies: headache, weakness Psychiatric: Denies: anxiety, depression Endocrine: Denies: fatigue Hematological/Lymphatic: Denies: easy bleeding Allergic/Immunologic: Denies: facial swelling Fall PMH - Past Medical History [facility] Narrative: All Active Problems (Last Updated 02/03/18 @ 15:21 by Hardeep Nelson DO) Uremia, acute (Acute) Hallucinations (Acute) Multiple falls (Acute) Morbid obesity with BMI of 40.0-44.9, adult (Acute) Rhabdomyolysis (Acute) Dehydration (Acute) Hypoglycemia (Acute) Fall (Acute) Confusion (Acute) Elevated BUN (Acute) Elevated serum creatinine (Acute) Cellulitis of lower extremity (Acute) Burn of second degree of buttock, initial encounter (Acute) 1st degree AV block (Acute) Left bundle branch block (LBBB) (Acute) Sarcoidosis, lung (Chronic) History of echocardiogram (Chronic 06/27/16) History of diagnostic ultrasound (Chronic 06/27/16) Paresthesia (Chronic) Weakness (Chronic) Heartburn (Chronic) Hyperlipidemia (Chronic) Parkinson's disease (Chronic) Sciatica of left side (Chronic) HTN (hypertension) (Chronic) Diabetes mellitus, type II (Chronic) Depression (Chronic) GERD (gastroesophageal reflux disease) (Chronic) Pneumonia (Chronic) Diabetic peripheral neuropathy (Chronic) Mixed incontinence urge and stress (Chronic) Laceration (Chronic) Past Surgical History (Last Updated 02/03/18 @ 14:04 by Hardeep Nelson DO) Cataract extraction status, left eye (Acute) Cataract extraction status, right eye (Acute) History of lung biopsy (Acute) Status post wrist surgery (Acute) History of appendectomy (Chronic) History of right below knee amputation (Chronic) Family History (Last Updated 02/03/18 @ 14:06 by Hardeep Nelson DO) Father Bladder cancer Brother Lung cancer Other No pertinent family history Social History (Last Updated 11/02/16 @ 08:44 by Gisele De La Rosa) No Social History Section defined Medical history: Reports: coronary artery disease, DM, hyperlipidemia, hypertension, obesity (morbid, bmi 40.6), other Psychiatric history: Reports: anxiety, depression Family history: Reports: non-contributory - Social History smoking status: Never smoker Alcohol use: Reports: Occasionally (Almost weekly but not much.) Drug use: Reports: none. Denies: marijuana Physical Exam Limitations: no limitations Head: atraumatic, normocephalic Eye: Present: normal appearance, PERRL ENT: normal exam, normal oropharynx Neck: Present: normal inspection, full ROM, trachea midline Chest: Present: normal inspection, symmetric chest wall rise Respiratory: Present: normal lung sounds bilaterally. Absent: respiratory distress, rales/crackles, wheezes Cardiovascular: Present: regular rate, normal rhythm. Absent: bradycardia, tachycardia Abdominal: Present: soft, normal bowel sounds. Absent: distention, tenderness, rebound, rigidity : Present: normal inspection Extremities: Present: normal inspection, full ROM Back: Present: normal inspection Patient oriented to: Present: person, place, time Speech: Present: fluid speech Cranial nerves: EOM function (II, III, IV, ): Normal, facial sensation (V): Normal, facial palsy (VII): Normal, gag reflex (IX): Normal, spinal accessory function (XI): Normal, tongue deviation (XII): Normal Motor strength - LUE: 5/5 Motor strength - RUE: 5/5 Motor strength - LLE: 5/5 Motor strength - RLE: 5/5 Upper motor neuron exam: Babinski sign: Absent bilaterally Sensory exam upper extremity: Normal: light touch Sensory exam lower extremity: Normal: light touch DTR: 2+: patellar (L), patellar (R) Coma Scale Eye Opening: Spontaneous Coma Scale Motor Response: Obeys Commands Coma Scale Verbal Response: Oriented Coma Scale Total: 15 Psychiatric: Present: normal affect, normal mood Course Vital Signs Pulse Rate 62 03/28/18 23:38 Respiratory Rate 19 03/28/18 23:38 Blood Pressure 123/71 03/28/18 23:38 Pulse Oximetry (%) 100 03/28/18 23:38 Temperature 96.6 F L 03/29/18 08:00 Pulse Rate 61 03/29/18 08:00 Respiratory Rate 24 H 03/29/18 08:00 Blood Pressure 121/72 03/29/18 08:00 Pulse Oximetry (%) 98 03/29/18 08:00 Fall - [facility] Narrative Medical decision making narrative: White counts 4100 the hemoglobin 10.8 hematocrit 32.5 to [place] is 4.9 sodium is 138 potassium 4.0 troponin less than 0.01 the BUN is 22 creatinine 1.2 UA was negative dip head CT was negative. Chest x-ray shows left lower infiltrate - Lab Data Result diagrams: 03/28/18 00:00 03/28/18 00:00 Lab Results 03/28/18 03/28/18 03/28/18 Range/Units 00:00 00:00 00:00 WBC 4.1 L (4.5-11.0) K/mcL RBC 3.77 L (4.50-5.90) M/mcL Hgb 10.8 L (13.5-16.5) g/dL Hct 32.5 L (41.0-55.0) % MCV 86.3 (80.0-100.0) fL MCH 28.7 (26.0-34.0) pg MCHC 33.3 (31.0-36.0) g/dL RDW 15.4 H (11.5-14.5) % Plt Count 109 L (140-440) K/mcL MPV 10.9 H (7.4-10.4) fL Gran % 58.9 (38.0-78.0) % Lymph % (Auto) 25.7 (15.5-49.0) % [place] % (Auto) 12.4 H (1.0-12.0) % Eos % (Auto) 1.8 (0.0-7.0) % Baso % (Auto) 1.2 (0.0-2.0) % Gran # 2.4 (1.8-8.0) K/mcL Lymph # (Auto) 1.0 L (1.5-4.8) K/mcL [place] # (Auto) 0.5 (0.1-0.9) K/mcL Eos # (Auto) 0.1 (0.0-0.7) K/mcL Baso # (Auto) 0 (0.0-0.3) K/mcL Total Counted Seg Neutrophils % (38-78) % Band Neutrophils % (0-10) % Lymphocytes % (15-49) % Monocytes % (Manual) (1-12) % Eosinophils % (Manual) (0-7) % Basophils % (Manual) (0-2) % Platelet Estimate (NORMAL) RBC Morphology (NORMAL) VBG Lactic Acid 4.9 H* (0.5-2.0) mmol/L Sodium 138 (133-145) mmol/L Potassium 4.0 (3.3-5.1) mmol/L Chloride 99 (96-108) mmol/L Carbon Dioxide 21 L (22-30) mmol/L Anion Gap 18.0 H (8-16) BUN 20 (8-23) mg/dl Creatinine 1.2 (0.7-1.2) mg/dl GFR Calculation 65 Glucose 70 (70-105) mg/dL Calcium 8.8 (8.6-10.4) mg/dl Total Bilirubin 0.4 (0.0-1.0) mg/dL AST 12 (0-37) U/l ALT < 5 (0-40) U/l Alkaline Phosphatase 97 (39-117) U/L Troponin T (0-0.03) ng/ml Total Protein 7.2 (5.9-8.4) gm/dL Albumin 4.1 (3.2-5.2) gm/dL Globulin 3.1 (2.2-3.7) gm/dL Albumin/Globulin Ratio 1.3 (1.0-2.3) Procalcitonin (<0.10) ng/mL Urine Color Urine Appearance Urine pH (5.0-9.0) Ur Specific [place] (1.000-1.035) Urine Protein (NEG) mg/dL Urine Glucose (UA) (NEG) mg/dL Urine Ketones (NEG) mg/dL Urine Occult Blood (<0.03) mg/dL Urine Nitrate (NEG) Urine Bilirubin (NEG) mg/dL Urine Urobilinogen (NEG) mg/dL Ur Leukocyte Esterase (NEG) /uL Ur Culture Indicated? Urine Opiates Screen (NONDETECTED) Ur Opiates Confirm Ur Oxycodone Screen (NONDETECTED) Urine Methadone Screen (NONDETECTED) Ur Methadone Confirm Ur Barbiturates Screen (NONDETECTED) Ur Barbiturate Confirm Ur Phencyclidine Scrn (NONDETECTED) Urine PCP Confirm Ur Amphetamines Screen (NONDETECTED) U Amphetamines Confirm U Benzodiazepines Scrn (NONDETECTED) U Benzodiazepine Confm Urine Cocaine Screen (NONDETECTED) Urine Cocaine Confirm U Cannabinoids Confirm U Marijuana (THC) Screen (NONDETECTED) Ethyl Alcohol (<0.010) gm/dl 03/28/18 03/28/18 03/28/18 Range/Units 00:00 00:00 01:20 WBC (4.5-11.0) K/mcL RBC (4.50-5.90) M/mcL Hgb (13.5-16.5) g/dL Hct (41.0-55.0) % MCV (80.0-100.0) fL MCH (26.0-34.0) pg MCHC (31.0-36.0) g/dL RDW (11.5-14.5) % Plt Count (140-440) K/mcL MPV (7.4-10.4) fL Gran % (38.0-78.0) % Lymph % (Auto) (15.5-49.0) % [place] % (Auto) (1.0-12.0) % Eos % (Auto) (0.0-7.0) % Baso % (Auto) (0.0-2.0) % Gran # (1.8-8.0) K/mcL Lymph # (Auto) (1.5-4.8) K/mcL [place] # (Auto) (0.1-0.9) K/mcL Eos # (Auto) (0.0-0.7) K/mcL Baso # (Auto) (0.0-0.3) K/mcL Total Counted Seg Neutrophils % (38-78) % Band Neutrophils % (0-10) % Lymphocytes % (15-49) % Monocytes % (Manual) (1-12) % Eosinophils % (Manual) (0-7) % Basophils % (Manual) (0-2) % Platelet Estimate (NORMAL) RBC Morphology (NORMAL) VBG Lactic Acid (0.5-2.0) mmol/L Sodium (133-145) mmol/L Potassium (3.3-5.1) mmol/L Chloride (96-108) mmol/L Carbon Dioxide (22-30) mmol/L Anion Gap (8-16) BUN (8-23) mg/dl Creatinine (0.7-1.2) mg/dl GFR Calculation Glucose (70-105) mg/dL Calcium (8.6-10.4) mg/dl Total Bilirubin (0.0-1.0) mg/dL AST (0-37) U/l ALT (0-40) U/l Alkaline Phosphatase (39-117) U/L Troponin T < 0.01 (0-0.03) ng/ml Total Protein (5.9-8.4) gm/dL Albumin (3.2-5.2) gm/dL Globulin (2.2-3.7) gm/dL Albumin/Globulin Ratio (1.0-2.3) Procalcitonin (<0.10) ng/mL Urine Color Urine Appearance Urine pH (5.0-9.0) Ur Specific [place] (1.000-1.035) Urine Protein (NEG) mg/dL Urine Glucose (UA) (NEG) mg/dL Urine Ketones (NEG) mg/dL Urine Occult Blood (<0.03) mg/dL Urine Nitrate (NEG) Urine Bilirubin (NEG) mg/dL Urine Urobilinogen (NEG) mg/dL Ur Leukocyte Esterase (NEG) /uL Ur Culture Indicated? Urine Opiates Screen None detected (NONDETECTED) Ur Opiates Confirm Not Reportable Ur Oxycodone Screen None detected (NONDETECTED) Urine Methadone Screen None detected (NONDETECTED) Ur Methadone Confirm Not Reportable Ur Barbiturates Screen None detected (NONDETECTED) Ur Barbiturate Confirm Not Reportable Ur Phencyclidine Scrn None detected (NONDETECTED) Urine PCP Confirm Not Reportable Ur Amphetamines Screen None detected (NONDETECTED) U Amphetamines Confirm Not Reportable U Benzodiazepines Scrn None detected (NONDETECTED) U Benzodiazepine Confm Not Reportable Urine Cocaine Screen None detected (NONDETECTED) Urine Cocaine Confirm Not Reportable U Cannabinoids Confirm Not Reportable U Marijuana (THC) Screen None detected (NONDETECTED) Ethyl Alcohol 0.019 H (<0.010) gm/dl 03/29/18 03/29/18 03/29/18 Range/Units 00:00 00:00 01:20 WBC (4.5-11.0) K/mcL RBC (4.50-5.90) M/mcL Hgb (13.5-16.5) g/dL Hct (41.0-55.0) % MCV (80.0-100.0) fL MCH (26.0-34.0) pg MCHC (31.0-36.0) g/dL RDW (11.5-14.5) % Plt Count (140-440) K/mcL MPV (7.4-10.4) fL Gran % (38.0-78.0) % Lymph % (Auto) (15.5-49.0) % [place] % (Auto) (1.0-12.0) % Eos % (Auto) (0.0-7.0) % Baso % (Auto) (0.0-2.0) % Gran # (1.8-8.0) K/mcL Lymph # (Auto) (1.5-4.8) K/mcL [place] # (Auto) (0.1-0.9) K/mcL Eos # (Auto) (0.0-0.7) K/mcL Baso # (Auto) (0.0-0.3) K/mcL Total Counted 100 Seg Neutrophils % 54 (38-78) % Band Neutrophils % 1 (0-10) % Lymphocytes % 29 (15-49) % Monocytes % (Manual) 12 (1-12) % Eosinophils % (Manual) 3 (0-7) % Basophils % (Manual) 1 (0-2) % Platelet Estimate Decreased A (NORMAL) RBC Morphology Normal (NORMAL) VBG Lactic Acid (0.5-2.0) mmol/L Sodium (133-145) mmol/L Potassium (3.3-5.1) mmol/L Chloride (96-108) mmol/L Carbon Dioxide (22-30) mmol/L Anion Gap (8-16) BUN (8-23) mg/dl Creatinine (0.7-1.2) mg/dl GFR Calculation Glucose (70-105) mg/dL Calcium (8.6-10.4) mg/dl Total Bilirubin (0.0-1.0) mg/dL AST (0-37) U/l ALT (0-40) U/l Alkaline Phosphatase (39-117) U/L Troponin T (0-0.03) ng/ml Total Protein (5.9-8.4) gm/dL Albumin (3.2-5.2) gm/dL Globulin (2.2-3.7) gm/dL Albumin/Globulin Ratio (1.0-2.3) Procalcitonin < 0.10 (<0.10) ng/mL Urine Color Yellow Urine Appearance Clear Urine pH 6.0 (5.0-9.0) Ur Specific [place] 1.013 (1.000-1.035) Urine Protein Neg (NEG) mg/dL Urine Glucose (UA) Negative (NEG) mg/dL Urine Ketones Neg (NEG) mg/dL Urine Occult Blood Neg (<0.03) mg/dL Urine Nitrate Neg (NEG) Urine Bilirubin Neg (NEG) mg/dL Urine Urobilinogen Neg (NEG) mg/dL Ur Leukocyte Esterase Neg (NEG) /uL Ur Culture Indicated? No Urine Opiates Screen (NONDETECTED) Ur Opiates Confirm Ur Oxycodone Screen (NONDETECTED) Urine Methadone Screen (NONDETECTED) Ur Methadone Confirm Ur Barbiturates Screen (NONDETECTED) Ur Barbiturate Confirm Ur Phencyclidine Scrn (NONDETECTED) Urine PCP Confirm Ur Amphetamines Screen (NONDETECTED) U Amphetamines Confirm U Benzodiazepines Scrn (NONDETECTED) U Benzodiazepine Confm Urine Cocaine Screen (NONDETECTED) Urine Cocaine Confirm U Cannabinoids Confirm U Marijuana (THC) Screen (NONDETECTED) Ethyl Alcohol (<0.010) gm/dl 03/29/18 Range/Units 03:05 WBC (4.5-11.0) K/mcL RBC (4.50-5.90) M/mcL Hgb (13.5-16.5) g/dL Hct (41.0-55.0) % MCV (80.0-100.0) fL MCH (26.0-34.0) pg MCHC (31.0-36.0) g/dL RDW (11.5-14.5) % Plt Count (140-440) K/mcL MPV (7.4-10.4) fL Gran % (38.0-78.0) % Lymph % (Auto) (15.5-49.0) % [place] % (Auto) (1.0-12.0) % Eos % (Auto) (0.0-7.0) % Baso % (Auto) (0.0-2.0) % Gran # (1.8-8.0) K/mcL Lymph # (Auto) (1.5-4.8) K/mcL [place] # (Auto) (0.1-0.9) K/mcL Eos # (Auto) (0.0-0.7) K/mcL Baso # (Auto) (0.0-0.3) K/mcL Total Counted Seg Neutrophils % (38-78) % Band Neutrophils % (0-10) % Lymphocytes % (15-49) % Monocytes % (Manual) (1-12) % Eosinophils % (Manual) (0-7) % Basophils % (Manual) (0-2) % Platelet Estimate (NORMAL) RBC Morphology (NORMAL) VBG Lactic Acid 2.0 (0.5-2.0) mmol/L Sodium (133-145) mmol/L Potassium (3.3-5.1) mmol/L Chloride (96-108) mmol/L Carbon Dioxide (22-30) mmol/L Anion Gap (8-16) BUN (8-23) mg/dl Creatinine (0.7-1.2) mg/dl GFR Calculation Glucose (70-105) mg/dL Calcium (8.6-10.4) mg/dl Total Bilirubin (0.0-1.0) mg/dL AST (0-37) U/l ALT (0-40) U/l Alkaline Phosphatase (39-117) U/L Troponin T (0-0.03) ng/ml Total Protein (5.9-8.4) gm/dL Albumin (3.2-5.2) gm/dL Globulin (2.2-3.7) gm/dL Albumin/Globulin Ratio (1.0-2.3) Procalcitonin (<0.10) ng/mL Urine Color Urine Appearance Urine pH (5.0-9.0) Ur Specific [place] (1.000-1.035) Urine Protein (NEG) mg/dL Urine Glucose (UA) (NEG) mg/dL Urine Ketones (NEG) mg/dL Urine Occult Blood (<0.03) mg/dL Urine Nitrate (NEG) Urine Bilirubin (NEG) mg/dL Urine Urobilinogen (NEG) mg/dL Ur Leukocyte Esterase (NEG) /uL Ur Culture Indicated? Urine Opiates Screen (NONDETECTED) Ur Opiates Confirm Ur Oxycodone Screen (NONDETECTED) Urine Methadone Screen (NONDETECTED) Ur Methadone Confirm Ur Barbiturates Screen (NONDETECTED) Ur Barbiturate Confirm Ur Phencyclidine Scrn (NONDETECTED) Urine PCP Confirm Ur Amphetamines Screen (NONDETECTED) U Amphetamines Confirm U Benzodiazepines Scrn (NONDETECTED) U Benzodiazepine Confm Urine Cocaine Screen (NONDETECTED) Urine Cocaine Confirm U Cannabinoids Confirm U Marijuana (THC) Screen (NONDETECTED) Ethyl Alcohol (<0.010) gm/dl Disposition Pt seen by PHYS ASST/PA only: No Clinical Impression: Sepsis Disposition: Xfer As Inpt ([facility]) Condition: Undetermined Time of Disposition: 08:37
[2018-03-29 00:33] LABS: Basophils # (Auto) 0 K/mcL (0.0-0.3); Basophils % (Auto) 1.2 % (0.0-2.0); Eosinophils # (Auto) 0.1 K/mcL (0.0-0.7); Eosinophils % (Auto) 1.8 % (0.0-7.0); Granulocytes % (Auto) 58.9 % (38.0-78.0); Lymphocytes % (Auto) 25.7 % (15.5-49.0); Mean Cell Volume 86.3 fL (80.0-100.0); Mean Corpuscular HGB Conc 33.3 g/dL (31.0-36.0); Mean Corpuscular Hemoglobin 28.7 pg (26.0-34.0); Monocytes # (Auto) 0.5 K/mcL (0.1-0.9); Monocytes % (Auto) 12.4 % (1.0-12.0); Platelet Count 109 K/mcL (140-440); RBC 3.77 M/mcL (4.50-5.90); Red Cell Distribution Width 15.4 % (11.5-14.5)
[2018-03-29 00:54] LABS: ALT/SGPT < 5 U/l (0-40); Albumin 4.1 gm/dL (3.2-5.2); Albumin/Globulin Ratio 1.3 (1.0-2.3); Alkaline Phosphatase 97 U/L (39-117); Blood Urea Nitrogen 20 mg/dl (8-23)
[2018-03-29] MEDS ORDERED: 0.9 % SODIUM CHLORIDE 1,000 ML IV ONE ×2 (01:11→02:06)
[2018-03-29] MEDS ORDERED: cefTRIAXone 1 GM VIAL IV ONE (01:30)
[2018-03-29] MEDS ORDERED: PIPERACILLIN SODIUM/TAZOBACTAM 3.375 GM in DEXTROSE 5% IN WATER 50 ML IV SCH ×2 (02:15→08:15)
[2018-03-29 02:22] LABS: Appearance,Urine CLEAR; Bilirubin,Urine NEG (NEG); Color,Urine YELLOW; Glucose,Urine (UA) NEGATIVE (NEG); Leukocyte Esterase,Urine NEG /uL (NEG); Protein,Urine NEG (NEG); Specific Gravity,Urine 1.013 (1.000-1.035); Urine Blood NEG mg/dL (<0.03); Urobilinogen,Urine NEG (NEG)
[2018-03-29] MEDS ORDERED: 0.9 % SODIUM CHLORIDE 500 ML IV ONE (02:28)
[2018-03-29] MEDS ORDERED: VANCOMYCIN 1,000 MG in 0.9 % SODIUM CHLORIDE 250 ML IV ONE (02:31)
[2018-03-29] MEDS ORDERED: PROMETHAZINE 25 MG TABLET PO PRN (02:31)
[2018-03-29] MEDS ORDERED: PROCHLORPERAZINE 25 MG SUPP.RECT PR PRN (02:31)
[2018-03-29] MEDS ORDERED: VANCOMYCIN PER PHARMACY IV ONE (02:31)
[2018-03-29] MEDS ORDERED: ONDANSETRON 4 MG/2 ML VIAL IV PRN (02:31)
[2018-03-29] MEDS ORDERED: 0.9 % SODIUM CHLORIDE 1,000 ML IV SCH (02:45)
--- NOTE | 2018-03-29 02:51 | Internal Med History&Physical ---
Medical - H&P: [facility] Patient information: Note initiated : 03/29/18 at 2:47 am Service Date, if different from initiated Date: [] Patient: Abdelrahman Henriquez 62 y/o M admitted on for fall. Chief Complaint: [] History of present illness: Mr. Henriquez is a 62 year old M With a history of Parkinson's who brought in because of increasing weakness. He has been hospitalized several times since summer for failure to thrive at home acute kidney injuries and altered mental status. His said he was fine on Tuesday but she feels he is been weak for the past couple days he fell yesterday. They went to a [employer] this evening had some few beers and when came home he does seem to extremely weak she could not get him in bed EMS was called just to bring him here. He also have an little more hallucinations lately which is a chronic issue but worse when he gets sick. Patient denies any coughing or shortness of breath out of the normal no chest pain stomach pain diarrhea. Does feel weak. In the ER he was found to have elevated lactate level chest x-ray which is concerning for left lobe infiltrate. CT brain which is unremarkable for any acute pathology and urinalysis is okay. Did notice some redness to the left lower extremity per the patient little bit tender. has not noticed that before but it is noticeably red for him. Review of Systems: Positive for generalized weakness, visual hallucinations, . denies headache/ fever/chills/nausea/vomiting/chest or abdominal pain/cough/dyspnea/diarrhea. Remaining 10 point review of systems reviewed negative Medical - H&P: [facility] Medical history: Medical History (Last Updated 02/03/18 @ 15:21 by Hardeep Nelson DO) 1st degree AV block (Acute) Left bundle branch block (LBBB) (Acute) Sarcoidosis, lung (Chronic) History of echocardiogram (Chronic 06/27/16) History of diagnostic ultrasound (Chronic 06/27/16) Paresthesia (Chronic) Weakness (Chronic) Heartburn (Chronic) Hyperlipidemia (Chronic) Parkinson's disease (Chronic) Sciatica of left side (Chronic) HTN (hypertension) (Chronic) Diabetes mellitus, type II (Chronic) Depression (Chronic) GERD (gastroesophageal reflux disease) (Chronic) Pneumonia (Chronic) Diabetic peripheral neuropathy (Chronic) Mixed incontinence urge and stress (Chronic) Laceration (Chronic) Past Surgical History (Last Updated 02/03/18 @ 14:04 by Hardeep Nelson DO) Cataract extraction status, left eye (Acute) Cataract extraction status, right eye (Acute) History of lung biopsy (Acute) Status post wrist surgery (Acute) History of appendectomy (Chronic) History of right below knee amputation (Chronic) Family History (Last Updated 02/03/18 @ 14:06 by Hardeep Nelson DO) Father Bladder cancer Brother Lung cancer Other No pertinent family history Social History ( Denies tobacco drinks alcohol socially ambulate with a walker and wheelchair lives at home with his currently Medical - H&P: Meds Home Medications Medication Instructions Recorded Confirmed Type amantadine HCl 100 mg tablet 100 mg PO QDAY tab 11/02/16 02/03/18 History aspirin 81 mg tablet 81 mg PO QDAY 11/02/16 02/03/18 History atenolol 50 mg tablet 100 mg PO QAM tab 11/02/16 02/03/18 History budesonide 90 mcg/actuation breath 2 inh INHALATION BID 11/02/16 02/03/18 History activated powder inhaler metformin 500 mg tablet 1,000 mg PO BID 11/02/16 02/03/18 History omeprazole 20 mg tablet,delayed 20 mg PO BID 11/02/16 02/03/18 History release quetiapine 25 mg tablet 25 mg PO QPM tab 11/02/16 02/03/18 History sertraline 100 mg tablet 100 mg PO QDAY 11/02/16 02/03/18 History travoprost 0.004 % eye drops 1 drp OPHTHALMIC QPM 11/02/16 02/03/18 History Donepezil [Aricept] 5 mg PO DAILY 04/06/17 02/03/18 History Accu-Chek 1 each FS ACHS strip 04/11/17 02/03/18 Rx Acetaminophen [Tylenol] 650 mg PO Q6HP PRN tablet 04/11/17 02/03/18 Rx Insulin Lispro [Humalog] 0 - 6 units SQ ACHS unit 04/11/17 02/03/18 Rx Melatonin 10 mg PO HS 01/06/18 02/03/18 History Pregabalin [Lyrica] 150 mg PO BID 01/06/18 02/03/18 History Pregabalin [Lyrica] 300 mg PO HS 01/06/18 02/03/18 History Torsemide 20 mg PO DAILY 01/06/18 02/03/18 History Cephalexin [Keflex] 500 mg PO QID #36 cap 01/10/18 02/03/18 Rx Carbidopa/Levodopa [Rytary ER 3 cap PO TID 02/03/18 02/03/18 History 23.75 mg-95 mg Cap] Atorvastatin [Lipitor] 20 mg PO HS #30 tablet 02/05/18 Rx Losartan [Cozaar] 100 mg PO QDAY #30 tablet 02/05/18 Rx Acetaminophen W/Codeine #3 1 - 2 tab PO QHS PRN #20 tab 02/06/18 Rx [Tylenol #3] Zolpidem [Ambien] 5 mg PO HSP PRN #30 tab 02/06/18 Rx Allergies Allergy/AdvReac Type Severity Reaction Status Date / Time terbinafine [From Lamisil] AdvReac Mild Vomiting Verified 01/05/18 16:09 Medical - H&P: Exam - Constitutional Vitals: Temp Pulse Resp BP Pulse Ox 97.5 F 62 16 100/64 97 03/29/18 01:40 03/29/18 00:37 03/29/18 02:16 03/29/18 02:16 03/29/18 00:37 Exam: General: drowsy, Awake, No acute Distress HEENT: EOMI, normocephalic atraumatic, pupils equal round react to light, dry mucous membranes CV: RRR, No murmurs, normal s1/s2 Pulm: Clear b/l, no wheezing/rhonchi/rales Abd: soft, nontender, +BS x4, obese Ext: no clubbing/cyanosis. Right BKA, left lower extremity with 1+ edema, left lower extremity of over the gamez is erythematous mildly tender Neuro: Alert, moves all extremities, decreased sensation left lower extremity from diabetic neuropathy Skin: warm/dry Medical - H&P: Reslt - Labs CBC & Chem 7: 03/28/18 00:00 03/28/18 00:00 Labs: Short CBC 03/28/18 Range/Units 00:00 WBC 4.1 L (4.5-11.0) K/mcL Hgb 10.8 L (13.5-16.5) g/dL Hct 32.5 L (41.0-55.0) % Plt Count 109 L (140-440) K/mcL BMP 03/28/18 00:00 Sodium 138 Potassium 4.0 Chloride 99 Carbon Dioxide 21 L BUN 20 Creatinine 1.2 Glucose 70 Calcium 8.8 Cardiac Enzymes 03/28/18 Range/Units 00:00 Troponin T < 0.01 (0-0.03) ng/ml Liver Function 03/28/18 Range/Units 00:00 Total Bilirubin 0.4 (0.0-1.0) mg/dL AST 12 (0-37) U/l ALT < 5 (0-40) U/l Alkaline Phosphatase 97 (39-117) U/L Albumin 4.1 (3.2-5.2) gm/dL Urine 03/29/18 Range/Units 01:20 Urine Color Yellow Urine Appearance Clear Urine pH 6.0 (5.0-9.0) Ur Specific [place] 1.013 (1.000-1.035) Urine Protein Neg (NEG) mg/dL Urine Glucose (UA) Negative (NEG) mg/dL - Impressions Per ER physician CT brain unremarkable for acute pathology chest x-ray with suspected left lobe infiltrate, I am unable to pull up any images Medical - H&P: A/P - Narrative A/P Narrative: Assessment: *Sepsis: source pulm vs Skin *?PNA: cxr appears to have LLL infiltrate per ER physician ( I am unable to pull up images) -No increased respiratory symptoms *LLE cellulitis: *Gen weak/Falls/debility/deconditioning/poor functional status: Secondary to underlying comorbidities *CKD II-III: *Parkinson's: Contributor to above *Hallucinations secondary to above, acute on chronic: *Failure to thrive at home: *Chronic wounds: *Diabetes with neuropathy *Dementia, mild: *Sarcoidosis: Is desiring to establish with a telephone maintainer *Obesity *Hypertension: Plan: -IV fluid hydration -Vanc/zosyn, f/u BC -repeat Lactic acid pending -check PCT - -SSI -PT/OT -Case management for placement -Sliding-scale insulin --ppx: lovenox/home PPI Page 6 of 6
[2018-03-29 03:38] LABS: Band Neutrophils % 1 % (0-10); Basophils % (Manual) 1 % (0-2); Eosinophils % (Manual) 3 % (0-7); Lymphocytes % 29 % (15-49); Monocytes % (Manual) 12 % (1-12); Platelet Estimate DECREASED (NORMAL); RBC Morphology NORMAL (NORMAL); Segmented Neutrophils % 54 % (38-78)
[2018-03-29 04:23] LABS: Amphetamine Screen,Urine NONE DETECTED (NONDETECTED); Benzodiazepines Screen,Urine NONE DETECTED (NONDETECTED); Cocaine Screen,Urine NONE DETECTED (NONDETECTED); Opiate Screen,Urine NONE DETECTED (NONDETECTED); Oxycodone, Urine Screen NONE DETECTED (NONDETECTED)
[2018-03-29] MEDS: PIPERACILLIN SODIUM/TAZOBACTAM 3.375 GM in DEXTROSE 5% IN WATER 50 ML IV SCH ×4 (04:26→18:09)
[2018-03-29] MEDS ORDERED: DEXTROSE 50% 50 ML VIAL IV PRN (04:43)
[2018-03-29] MEDS: 0.9 % SODIUM CHLORIDE 10 ML SYRINGE IV SCH ×2 (05:38→14:42)
--- NOTE | 2018-03-29 05:49 | Cat Scan Report ---
CLINICAL INFORMATION: Fall. Head injury. COMPARISON: 01/05/2018 TECHNIQUE: Axial noncontrast-enhanced images through the brain. FINDINGS: No acute intracranial hemorrhage. No subdural hematoma. No subarachnoid hemorrhage. No intra-axial hemorrhage. No focal intra-axial attenuation abnormality or localized mass effect. No midline shift. Brain volume is within normal limits for age. Brainstem and cerebellum are negative. Basilar cisterns are normal. There is calcification of the intracranial vertebral arteries as well as cavernous segments of the internal carotid arteries. No calvarial fracture. Temporal bones are negative. Examination was initially evaluated by [facility] IMPRESSION: Negative noncontrast enhanced brain CT scan. No acute posttraumatic abnormality The exam was performed using radiation dose optimization techniques including, but not limited to, automated exposure control, adjustment of the mA and/or kV according to patient size and use of iterative reconstruction technique. Interpreted and Authenticated by: Abdelrahman Parmar 03/29/18
--- NOTE | 2018-03-29 05:50 | XRay Report ---
INDICATION: Fall. TECHNIQUE: AP chest x-ray, portable semiupright COMPARISON: Chest x-rays dated 02/03/2018, 01/05/2018 FINDINGS: Lungs are negative. No parenchymal infiltrate or mass. No pulmonary contusion No detectable rib fractures. Clavicles and scapula are negative. Heart size and mediastinum are normal. IMPRESSION: Negative AP chest x-ray, no interval change Interpreted and Authenticated by: Abdelrahman Parmar 03/29/18
--- NOTE | 2018-03-29 06:19 | Cat Scan Report ---
CLINICAL INFORMATION: Fever. Fall. COMPARISON: Chest x-rays dated 03/29/2018, 02/03/2018, 01/05/2018. TECHNIQUE: Axial noncontrast enhanced images through the chest. Sagittally and coronally reformatted images. MIP reformatted images. Contrast material was not administered. FINDINGS: No pulmonary parenchymal consolidation. No evidence for bacterial pneumonia. There is bronchial wall thickening. This may be due to interstitial edema or viral pneumonia. There are multiple small subpleural nodules bilaterally. No calcified pleural plaques. No significant pleural effusion. There are also scattered small pulmonary parenchymal nodules. There is a 9 mm right upper lobe nodule, image 41. This has central calcification there is an 8 mm left lower lobe nodule, image 69 there is a 7 mm right lower lobe nodule, image 70 there is a 7 mm right middle lobe nodule, image 75 there are other scattered small nodules. 3-6 month follow-up CT scan is recommended. No significant bronchiectasis. No honeycombing. There is a suggestion of mild reticular change of both lung bases. Early findings of interstitial fibrosis or possible. There are multiple nonspecific mediastinal lymph nodes. There are pretracheal and perivascular lymph nodes. Largest prevascular lymph node measures 17 mm. Largest pretracheal lymph node measures 17 mm. At least one prevascular node has a small central calcification. Clara are prominent and hilar adenopathy is suspected although not well delineated on this noncontrast enhanced examination. There is no axillary adenopathy. No supraclavicular adenopathy. There is atherosclerotic disease with calcification of the thoracic aorta. There is only mild coronary artery calcification. There is dense mitral annular calcification. No thoracic compression fracture. No rib fractures. Midline sagittal reformatted image demonstrates a small discontinuity in the body of the sternum. This is not an acute fracture. This may be residua from old trauma or a small nutrient vessel. No clavicle or scapular fractures. Images through the upper abdomen are negative. Examination was initially reviewed by [facility] IMPRESSION: 1. No parenchymal consolidation. No evidence for bacterial pneumonia. There is diffuse bronchial wall thickening which may indicate interstitial edema or viral pneumonia. 2. Multiple small pleural-based nodules and scattered pulmonary parenchymal nodules. Three to six month CT follow-up recommended. 3. Dense mitral annular calcification The exam was performed using radiation dose optimization techniques including, but not limited to, automated exposure control, adjustment of the mA and/or kV according to patient size and use of iterative reconstruction technique. Interpreted and Authenticated by: Abdelrahman Parmar 03/29/18
--- NOTE | 2018-03-29 06:55 | Internal Med Progress Note ---
Medical - PN: Subj Patient information: Note initiated : 03/29/18 at 6:49 am Service Date, if different from initiated Date: [] Patient: Abdelrahman Henriquez 62 y/o M admitted on 03/29/18 for Fall. Chief Complaint: [] Interval history: Mr. Henriquez is a 62 year old M With a history of Parkinson's who brought in because of increasing weakness. He has been hospitalized several times since summer for failure to thrive at home acute kidney injuries and altered mental status. His said he was fine on Tuesday but she feels he is been weak for the past couple days he fell yesterday. They went [place] [employer] this evening had some few beers and when came home he does seem to extremely weak she could not get him in bed EMS was called just to bring him here. He also have an little more hallucinations lately which is a chronic issue but worse when he gets sick. Patient denies any coughing or shortness of breath out of the normal no chest pain stomach pain diarrhea. Does feel weak. In the ER he was found to have elevated lactate level chest x-ray which is concerning for left lobe infiltrate. CT brain which is unremarkable for any acute pathology and urinalysis is okay. Did notice some redness to the left lower extremity per the patient little bit tender. has not noticed that before but it is noticeably red for him. 03/29 Feeling a little better than when he came in. No new complaints. Review of Systems: denies headache/fever/chills/nausea/vomiting/chest or abdominal pain/cough/ dyspnea/diarrhea. Otherwise see above. - Constitutional Vitals: Vital Signs Temp Pulse Resp BP Pulse Ox 96.9 F L 70 24 H 129/78 94 03/29/18 04:41 03/29/18 04:41 03/29/18 04:41 03/29/18 04:41 03/29/18 04:41 Period Temp Pulse Resp BP Sys/Leung Pulse Ox Last 24 Hr 96.9 F-97.5 F 59-70 15-24 96-138/61-87 94-100 Intake and Output 03/28/18 03/29/18 03/29/18 21:59 05:59 13:59 Intake Total 2820 / 2820 Balance 2820 / 2820 Weight 118.161 kg Intake & Output: Intake & Output 03/28/18 03/29/18 03/29/18 21:59 05:59 13:59 Intake Total 2820 / 2820 Balance 2820 / 2820 Weight 118.161 kg Intake: IV 2820 / 2820 Sodium Chloride 0.9% 1,000 ml @ 2320 / 2320 Wide Open IV BOLUS ONE Rx#: [id number] Sodium Chloride 0.9% 500 ml @ 500 / 500 Wide Open IV BOLUS ONE Rx#: [id number] Other: Urine Appearance Uretheral (Mayo) Clear Urine Color Uretheral (Mayo) Dark Yellow Exam: General: alert, Awake, No acute Distress HEENT: EOMI, neck supple CV: RRR, No murmurs, normal s1/s2 Pulm: right side mild rhonchi and exp wheeze Abd: soft, nontender, +BS x4, obese Ext: no clubbing/cyanosis. Right BKA, left lower extremity with 1+ edema & erythema of over gamez with mild tenderness Neuro: Alert, moves all extremities, decreased sensation left lower extremity from diabetic neuropathy Skin: warm/dry Medical - PN: Obj Da - Labs CBC & Chem 7: 03/28/18 00:00 03/28/18 00:00 Labs: Abnormal Lab Results 03/29/18 03/28/18 03/28/18 00:00 00:00 00:00 WBC RBC Hgb Hct RDW Plt Count MPV [place] % (Auto) Lymph # (Auto) Platelet Estimate Decreased A VBG Lactic Acid 4.9 H* Carbon Dioxide Anion Gap Ethyl Alcohol 0.019 H 03/28/18 03/28/18 00:00 00:00 WBC 4.1 L RBC 3.77 L Hgb 10.8 L Hct 32.5 L RDW 15.4 H Plt Count 109 L MPV 10.9 H [place] % (Auto) 12.4 H Lymph # (Auto) 1.0 L Platelet Estimate VBG Lactic Acid Carbon Dioxide 21 L Anion Gap 18.0 H Ethyl Alcohol Meds: Medications Acetaminophen (Tylenol) 650 mg PO Q6HP PRN PRN Reason: PAIN/FEVER > 101 Albuterol/Ipratropium (Duoneb) 3 ml NEB Q4HRT PRN PRN Reason: sob Dextrose (Dextrose 50%) 50 ml IV UD PRN PRN Reason: Hypoglycemia Diagnostic Test (Pha) (Accu-Chek) 1 each FS ACHS [facility] Last Admin: 03/29/18 04:45 Dose: 1 each Enoxaparin Sodium (Lovenox) 40 mg SQ DAILY [facility] Famotidine (Pepcid) 20 mg PO BID [facility] Sodium Chloride (Sodium Chloride 0.9%) 500 mls @ 0 mls/hr IV BOLUS ONE Stop: 03/29/18 02:29 Last Infusion: 03/29/18 03:39 Dose: Infused Sodium Chloride (Sodium Chloride 0.9%) 1,000 mls @ 75 mls/hr IV .[id number] [facility] Stop: 03/29/18 16:04 Last Admin: 03/29/18 04:23 Dose: 75 mls/hr Piperacillin Sod/Tazobactam (Sod 3.375 gm/ Dextrose) 50 mls @ 100 mls/hr IV Q6H [facility] Last Admin: 03/29/18 04:26 Dose: 100 mls/hr Vancomycin HCl 1,000 mg/ (Sodium Chloride) 250 mls @ 250 mls/hr IV ONCE ONE Stop: 03/29/18 03:30 Last Admin: 03/29/18 05:37 Dose: 250 mls/hr Insulin Human Lispro (Humalog) 0 unit SQ ACHS [facility]; Protocol Ondansetron HCl (Zofran) 4 mg IV Q4HP PRN PRN Reason: Nausea And Vomiting Pantoprazole Sodium (Protonix) 40 mg PO QAMAC [facility] Prochlorperazine Maleate (Compazine) 12.5 mg MN Q12HP PRN PRN Reason: Nausea And Vomiting Promethazine HCl (Phenergan) 12.5 mg PO Q6HP PRN PRN Reason: Nausea And Vomiting Sodium Chloride (Saline Flush) 10 ml IV Q8 [facility] Last Admin: 03/29/18 05:38 Dose: Not Given Vancomycin HCl (Vancomycin Per Pharmacy) 1 order IV ONCE ONE Stop: 03/29/18 02:32 Last Admin: 03/29/18 05:38 Dose: Not Given Medical - PN: A/P - Time Spent With Patient Total time spent is greater than 50% in coordination of care (as documented) at patient's floor/unit and/or counseling patient: - Narrative A/P Narrative: Assessment: *Sepsis: source pulm vs Skin -lactate normalized *LLE cellulitis: other consideration would be venous stasis dermatitis, he does have venous stasis changes. *suspect viral PNA: *Gen weak/Falls/debility/deconditioning/poor functional status: Secondary to underlying comorbidities *CKD II-III: *Parkinson's: Contributor to above *Hallucinations secondary to above, acute on chronic: *Failure to thrive at home: *Chronic wounds: *Diabetes with neuropathy: home med metformin and SSI *Dementia, mild: *Sarcoidosis: *Obesity *Hypertension: Plan: -IV fluid hydration -Vanc/zosyn, f/u BC - -SSI -PT/OT -Case management for placement -SSIn -f/u CT in 3-6mos for small lung nodules -ppx: lovenox/home PPI Medical - PN: Qual - VTE Deep Vein Thrombosis/Pulmonary Embolism Present on Admission: No
[2018-03-29] MEDS ORDERED: VANCOMYCIN PER PHARMACY IV SCH (07:15)
[2018-03-29] MEDS ORDERED: PANTOPRAZOLE 40 MG PACKET PO SCH (07:30)
[2018-03-29] MEDS: INSULIN LISPRO 1 UNIT/0.01 ML UNIT SQ SCH ×4 (07:56→21:29)
[2018-03-29] MEDS ORDERED: VANCOMYCIN 500 MG in 0.9 % SODIUM CHLORIDE 100 ML IV ONE (09:00)
[2018-03-29] MEDS: FAMOTIDINE 20 MG TABLET PO SCH ×2 (09:18→22:18)
[2018-03-29] MEDS: ENOXAPARIN 40 MG/0.4 ML SYRINGE SQ SCH (09:18)
[2018-03-29] MEDS: ACETAMINOPHEN 325 MG TABLET PO PRN ×2 (11:30→19:38)
[2018-03-29] MEDS ORDERED: INSULIN LISPRO 1 UNIT/0.01 ML UNIT SQ SCH ×2 (11:30)
[2018-03-29] MEDS: LOSARTAN 50 MG TABLET PO SCH (11:32)
[2018-03-29] MEDS: ATENOLOL 50 MG TABLET PO SCH (11:32)
[2018-03-29] MEDS: Carbidopa/Levodopa [Rytary Er 23.75 Mg-95 Mg Cap] PO SCH ×2 (14:36→22:19)
[2018-03-29] MEDS ORDERED: OMEPRAZOLE 20 MG CAPSULE PO SCH (17:00)
[2018-03-29] MEDS ORDERED: VANCOMYCIN 1,500 MG in 0.9 % SODIUM CHLORIDE 500 ML IV SCH (21:00)
[2018-03-29] MEDS ORDERED: PREGABALIN 150 MG CAPSULE PO SCH (21:00)
[2018-03-29] MEDS: MELATONIN 3 MG TABLET PO SCH (22:18)
[2018-03-29] MEDS: SERTRALINE 100 MG TABLET PO SCH (22:18)
[2018-03-29] MEDS: ATORVASTATIN 20 MG TABLET PO SCH (22:18)
[2018-03-29] MEDS: PREGABALIN 150 MG CAPSULE PO SCH (22:18)
[2018-03-29] MEDS: QUEtiapine 25 MG TABLET PO SCH (22:18)
[2018-03-29] MEDS: ZOLPIDEM 5 MG TABLET PO PRN (22:18)
[2018-03-29] MEDS: TRAVOPROST OPHTH DROPS BOTTLE 2.5ML OU SCH (22:19)
[2018-03-29] MEDS: ACETAMINOPHEN W/CODEINE #3 1 TABLET PO PRN (22:19)
[2018-03-29] MEDS: BUDESONIDE 1 PUFF INHALER INH SCH (22:19)
[2018-03-30] MEDS: 0.9 % SODIUM CHLORIDE 10 ML SYRINGE IV SCH ×4 (00:05→21:04)
[2018-03-30] MEDS: PIPERACILLIN SODIUM/TAZOBACTAM 3.375 GM in DEXTROSE 5% IN WATER 50 ML IV SCH ×2 (00:25→05:39)
[2018-03-30] MEDS: IPRATROPIUM/ALBUTEROL 3 ML AMPUL.NEB NEB PRN (01:15)
[2018-03-30 07:34] LABS: ALT/SGPT < 5 U/l (0-40); Albumin/Globulin Ratio 1.2 (1.0-2.3); Alkaline Phosphatase 99 U/L (39-117); Bilirubin,Direct < 0.2 mg/dL (0.0-0.3); Blood Urea Nitrogen 14 mg/dl (8-23); Gamma Glutamyl Transpeptidase 51 U/L (8-61); Uric Acid 6.1 mg/dL (2.5-8.0)
[2018-03-30 07:37] LABS: Mean Cell Volume 86.9 fL (80.0-100.0); Mean Corpuscular HGB Conc 33.1 g/dL (31.0-36.0); Mean Corpuscular Hemoglobin 28.8 pg (26.0-34.0); Platelet Count 90 K/mcL (140-440); RBC 3.88 M/mcL (4.50-5.90)
[2018-03-30 07:39] LABS: Band Neutrophils % 3 % (0-10); Eosinophils % (Manual) 4 % (0-7); Lymphocytes % 8 % (15-49); Monocytes % (Manual) 5 % (1-12); Platelet Estimate DECREASED (NORMAL); RBC Morphology NORMAL (NORMAL); Segmented Neutrophils % 80 % (38-78)
[2018-03-30] MEDS: INSULIN LISPRO 1 UNIT/0.01 ML UNIT SQ SCH ×4 (08:28→21:05)
[2018-03-30] MEDS: ENOXAPARIN 40 MG/0.4 ML SYRINGE SQ SCH (08:29)
[2018-03-30] MEDS: ASPIRIN 81 MG TAB.CHEW PO SCH (08:29)
[2018-03-30] MEDS: LOSARTAN 50 MG TABLET PO SCH (08:29)
[2018-03-30] MEDS: AMANTADINE HCL 100 MG CAPSULE PO SCH (08:29)
[2018-03-30] MEDS: PREGABALIN 150 MG CAPSULE PO SCH ×2 (08:29→21:03)
[2018-03-30] MEDS: DONEPEZIL 10 MG TABLET PO SCH (08:29)
[2018-03-30] MEDS: ATENOLOL 50 MG TABLET PO SCH (08:29)
[2018-03-30] MEDS: FAMOTIDINE 20 MG TABLET PO SCH ×2 (08:29→21:04)
[2018-03-30] MEDS: Carbidopa/Levodopa [Rytary Er 23.75 Mg-95 Mg Cap] PO SCH ×3 (08:30→21:09)
[2018-03-30] MEDS: BUDESONIDE 1 PUFF INHALER INH SCH ×2 (08:32→21:09)
--- NOTE | 2018-03-30 08:34 | Internal Med Progress Note ---
Medical - PN: Subj Patient information: Note initiated : 03/30/18 at 7:02 am Service Date, if different from initiated Date: [] Patient: Abdelrahman Henriquez 62 y/o M admitted on 03/29/18 for Fall. Chief Complaint: [] Interval history: Mr. Henriquez is a 62 year old M With a history of Parkinson's who brought in because of increasing weakness. He has been hospitalized several times since summer for failure to thrive at home acute kidney injuries and altered mental status. His said he was fine on Tuesday but she feels he is been weak for the past couple days he fell yesterday. They went to a [employer] alley this evening had some few beers and when came home he does seem to extremely weak she could not get him in bed EMS was called just to bring him here. He also have an little more hallucinations lately which is a chronic issue but worse when he gets sick. Patient denies any coughing or shortness of breath out of the normal no chest pain stomach pain diarrhea. Does feel weak. In the ER he was found to have elevated lactate level chest x-ray which is concerning for left lobe infiltrate. CT brain which is unremarkable for any acute pathology and urinalysis is okay. Did notice some redness to the left lower extremity per the patient little bit tender. has not noticed that before but it is noticeably red for him. 03/29 Feeling a little better than when he came in. No new complaints. 03/30 Feeling better more energy. No new complaints, slept well. Review of Systems: denies headache/fever/chills/nausea/vomiting/chest or abdominal pain/cough/ dyspnea/diarrhea. Otherwise see above. - Constitutional Vitals: Vital Signs Temp Pulse Resp BP Pulse Ox 96.1 F L 68 24 H 150/90 97 03/30/18 04:00 03/29/18 20:00 03/30/18 04:00 03/30/18 04:00 03/30/18 04:00 Period Temp Pulse Resp BP Sys/Leung Pulse Ox Last 24 Hr 96.1 F-99.3 F 61-76 18-24 121-157/72-92 93-99 Intake and Output 03/29/18 03/30/18 03/30/18 21:59 05:59 13:59 Intake Total 1114 / 1114 850 / 850 Output Total 750 / 750 1425 / 1425 Balance 364 / 364 -575 / -575 Weight 116.8 kg Intake & Output: Intake & Output 03/29/18 03/30/18 03/30/18 21:59 05:59 13:59 Intake Total 1114 / 1114 850 / 850 Output Total 750 / 750 1425 / 1425 Balance 364 / 364 -575 / -575 Weight 116.8 kg Intake: IV 514 / 514 50 / 50 Zosyn 3.375 gm In Dextrose 5% 50 / 50 50 / 50 in Water 50 ml @ 100 mls/hr IV Q6H [facility] Rx#:[id number] Oral 600 / 600 GI Tube Flush 800 / 800 Output: Urine Catheter Amount 750 / 750 1425 / 1425 Other: Meal Dinner Percent of Meal Consumed 100% Feeding Ability Assist with Tray Set Up Urine Appearance Clear Clear Uretheral (Mayo) Clear Urine Color Dark Yellow Bright Yellow Uretheral (Mayo) Dark Yellow Urine Odor Normal Exam: General: alert, Awake, No acute Distress HEENT: EOMI, neck supple CV: RRR, No murmurs, normal s1/s2 Pulm: right side mild rhonchi and exp wheeze Abd: soft, nontender, +BS x4, obese Ext: no clubbing/cyanosis. Right BKA, left lower extremity with 1+ edema & erythema of over gamez with mild tenderness unchanged Neuro: Alert, moves all extremities, decreased sensation left lower extremity from diabetic neuropathy Skin: warm/dry Medical - PN: Obj Da - Labs CBC & Chem 7: 03/30/18 03:50 03/30/18 03:50 Labs: Abnormal Lab Results 03/29/18 03/28/18 03/28/18 00:00 00:00 00:00 WBC RBC Hgb Hct RDW Plt Count MPV [place] % (Auto) Lymph # (Auto) Platelet Estimate Decreased A VBG Lactic Acid 4.9 H* Carbon Dioxide Anion Gap Ethyl Alcohol 0.019 H 03/28/18 03/28/18 00:00 00:00 WBC 4.1 L RBC 3.77 L Hgb 10.8 L Hct 32.5 L RDW 15.4 H Plt Count 109 L MPV 10.9 H [place] % (Auto) 12.4 H Lymph # (Auto) 1.0 L Platelet Estimate VBG Lactic Acid Carbon Dioxide 21 L Anion Gap 18.0 H Ethyl Alcohol Meds: Medications Acetaminophen (Tylenol) 650 mg PO Q6HP PRN PRN Reason: PAIN/FEVER > 101 Last Admin: 03/29/18 19:38 Dose: 650 mg Acetaminophen/Codeine Phosphate (Tylenol #3) 1 tab PO HSP PRN PRN Reason: Pain Last Admin: 03/29/18 22:19 Dose: 1 tab Albuterol/Ipratropium (Duoneb) 3 ml NEB Q4HRT PRN PRN Reason: sob Last Admin: 03/30/18 01:15 Dose: 3 ml Amantadine HCl (Amantadine) 100 mg PO DAILY [facility] Aspirin (Aspirin) 81 mg PO DAILY [facility] Atenolol (Tenormin) 100 mg PO QAM [facility] Last Admin: 03/29/18 11:32 Dose: 100 mg Atorvastatin Calcium (Lipitor) 20 mg PO HS [facility] Last Admin: 03/29/18 22:18 Dose: 20 mg Budesonide (Pulmicort) 2 puff INH BID [facility] Last Admin: 03/29/18 22:19 Dose: Not Given Dextrose (Dextrose 50%) 50 ml IV UD PRN PRN Reason: Hypoglycemia Diagnostic Test (Pha) (Accu-Chek) 1 each FS ACHS [facility] Last Admin: 03/29/18 21:28 Dose: 1 each Donepezil HCl (Aricept) 5 mg PO DAILY [facility] Enoxaparin Sodium (Lovenox) 40 mg SQ DAILY [facility] Last Admin: 03/29/18 09:18 Dose: 40 mg Famotidine (Pepcid) 20 mg PO BID [facility] Last Admin: 03/29/18 22:18 Dose: 20 mg Piperacillin Sod/Tazobactam (Sod 3.375 gm/ Dextrose) 50 mls @ 100 mls/hr IV Q6H [facility] Last Admin: 03/30/18 05:39 Dose: 100 mls/hr Vancomycin HCl 1,500 mg/ (Sodium Chloride) 500 mls @ 333.3 mls/hr IV Q12H [facility] Last Admin: 03/29/18 21:29 Dose: 333.3 mls/hr Insulin Human Lispro (Humalog) 0 unit SQ ACHS [facility]; Protocol Last Admin: 03/29/18 21:29 Dose: Not Given Losartan Potassium (Cozaar) 100 mg PO DAILY [facility] Last Admin: 03/29/18 11:32 Dose: 100 mg Melatonin (Melatonin 3mg Tablet) 9 mg PO [facility] Last Admin: 03/29/18 22:18 Dose: 9 mg Ondansetron HCl (Zofran) 4 mg IV Q4HP PRN PRN Reason: Nausea And Vomiting Carbidopa/Levodopa [ Rytary Er 23.75 Mg- 95 Mg Cap] 1 dose PO TID [facility] Last Admin: 03/29/18 22:19 Dose: 1 dose Pregabalin (Lyrica) 150 mg PO BID [facility] Last Admin: 03/29/18 22:18 Dose: 150 mg Prochlorperazine Maleate (Compazine) 12.[address] Q12HP PRN PRN Reason: Nausea And Vomiting Promethazine HCl (Phenergan) 12.5 mg PO Q6HP PRN PRN Reason: Nausea And Vomiting Quetiapine Fumarate (Seroquel) 25 mg PO [facility] Last Admin: 03/29/18 22:18 Dose: 25 mg Sertraline HCl (Zoloft) 100 mg PO [facility] Last Admin: 03/29/18 22:18 Dose: 100 mg Sodium Chloride (Saline Flush) 10 ml IV Q8 [facility] Last Admin: 03/30/18 05:39 Dose: 10 ml Travoprost (Travatan Z Ophth Drops) 1 gtt OU HS [facility] Last Admin: 03/29/18 22:19 Dose: 1 gtt Vancomycin HCl (Vancomycin Per Pharmacy) 1 order IV UD [facility] Zolpidem Tartrate (Ambien) 5 mg PO HSP PRN PRN Reason: Insomnia Last Admin: 03/29/18 22:18 Dose: 5 mg Medical - PN: A/P - Time Spent With Patient Total time spent is greater than 50% in coordination of care (as documented) at patient's floor/unit and/or counseling patient: - Narrative A/P Narrative: Assessment: *?Sepsis based on qSOFA: source pulm vs Skin -lactate normalized -CT chest no focal infiltrate but diffuse bronchial wall thickening *LLE cellulitis vs venous stasis dermatitis: appearing more like venous stasis dermatitis, he does have venous stasis changes. *viral PNA: Resp panel neg *Gen weak/Falls/debility/deconditioning/poor functional status: Secondary to underlying comorbidities *CKD II-III: *Parkinson's: Contributor to above *Hallucinations secondary to above, acute on chronic: *Failure to thrive at home: *Chronic wounds: *Diabetes with neuropathy: home med metformin and SSI *Dementia, mild: *Sarcoidosis: *Obesity *Hypertension: Plan: -d/c jason coynesyjoselo to rocephin -f/u final BC -elevate leg -SSI -PT/OT -Case management for placement -SSI -f/u CT in 3-6mos for small lung nodules -ppx: lovenox/home PPI d/c planning Medical - PN: Qual - VTE Deep Vein Thrombosis/Pulmonary Embolism Present on Admission: No
[2018-03-30] MEDS: cefTRIAXone 1 GM VIAL IV SCH (10:31)
[2018-03-30] MEDS: ATORVASTATIN 20 MG TABLET PO SCH (21:03)
[2018-03-30] MEDS: MELATONIN 3 MG TABLET PO SCH (21:03)
[2018-03-30] MEDS: ZOLPIDEM 5 MG TABLET PO PRN (21:04)
[2018-03-30] MEDS: QUEtiapine 25 MG TABLET PO SCH (21:04)
[2018-03-30] MEDS: TRAVOPROST OPHTH DROPS BOTTLE 2.5ML OU SCH (21:09)
[2018-03-30] MEDS: SERTRALINE 100 MG TABLET PO SCH (21:09)
[2018-03-30] MEDS: ACETAMINOPHEN W/CODEINE #3 1 TABLET PO PRN (23:39)
[2018-03-31] MEDS: ACETAMINOPHEN W/CODEINE #3 1 TABLET PO PRN (02:47)
[2018-03-31] MEDS: 0.9 % SODIUM CHLORIDE 10 ML SYRINGE IV SCH (05:32)
[2018-03-31] MEDS: IPRATROPIUM/ALBUTEROL 3 ML AMPUL.NEB NEB PRN (06:49)
[2018-03-31] MEDS: BUDESONIDE 1 PUFF INHALER INH SCH (07:03)
[2018-03-31] MEDS: INSULIN LISPRO 1 UNIT/0.01 ML UNIT SQ SCH ×2 (07:03→12:39)
[2018-03-31] MEDS: Carbidopa/Levodopa [Rytary Er 23.75 Mg-95 Mg Cap] PO SCH (07:03)
[2018-03-31 07:13] LABS: ALT/SGPT < 5 U/l (0-40); Albumin 3.8 gm/dL (3.2-5.2); Albumin/Globulin Ratio 1.2 (1.0-2.3); Alkaline Phosphatase 98 U/L (39-117); Bilirubin,Direct < 0.2 mg/dL (0.0-0.3); Blood Urea Nitrogen 12 mg/dl (8-23); Gamma Glutamyl Transpeptidase 45 U/L (8-61); Uric Acid 5.8 mg/dL (2.5-8.0)
[2018-03-31 07:27] LABS: Basophils # (Auto) 0 K/mcL (0.0-0.3); Basophils % (Auto) 0.9 % (0.0-2.0); Eosinophils # (Auto) 0.2 K/mcL (0.0-0.7); Eosinophils % (Auto) 3.3 % (0.0-7.0); Granulocytes % (Auto) 65.1 % (38.0-78.0); Lymphocytes % (Auto) 20.5 % (15.5-49.0); Mean Cell Volume 86.3 fL (80.0-100.0); Mean Corpuscular HGB Conc 33.4 g/dL (31.0-36.0); Mean Corpuscular Hemoglobin 28.9 pg (26.0-34.0); Monocytes # (Auto) 0.5 K/mcL (0.1-0.9); Monocytes % (Auto) 10.2 % (1.0-12.0); Platelet Count 98 K/mcL (140-440); RBC 3.68 M/mcL (4.50-5.90); Red Cell Distribution Width 14.9 % (11.5-14.5)
[2018-03-31] MEDS ORDERED: THIAMINE 100 MG TABLET PO SCH (09:00)
[2018-03-31] MEDS: AMANTADINE HCL 100 MG CAPSULE PO SCH (09:09)
[2018-03-31] MEDS: ATENOLOL 50 MG TABLET PO SCH (09:10)
[2018-03-31] MEDS: DONEPEZIL 10 MG TABLET PO SCH (09:10)
[2018-03-31] MEDS: LOSARTAN 50 MG TABLET PO SCH (09:10)
[2018-03-31] MEDS: ASPIRIN 81 MG TAB.CHEW PO SCH (09:11)
[2018-03-31] MEDS: PREGABALIN 150 MG CAPSULE PO SCH (09:11)
[2018-03-31] MEDS: ENOXAPARIN 40 MG/0.4 ML SYRINGE SQ SCH (09:11)
[2018-03-31] MEDS: FAMOTIDINE 20 MG TABLET PO SCH (09:11)
[2018-03-31] MEDS: cefTRIAXone 1 GM VIAL IV SCH (09:11)
--- NOTE | 2018-03-31 10:39 | Discharge Summary ---
Medical - DS: Prov Patient information: Note initiated : 03/31/18 at 10:36 am Service Date, if different from initiated Date: [] Patient: Abdelrahman Henriquez 62 y/o M admitted on 03/29/18 for Fall. Chief Complaint: [] Date of admission: 03/29/18 04:17 Discharge date: 03/31/18 Primary care physician: Sada Bernard Consults: 03/29/18 Consult to Physician [CONS] Stat Comment: Consulting Provider: Adi Briggs Reason For Exam: Physician to Consult Discharging clinician: Philip Gonzalez Medical - DS: Meds - Discharge Medications Prescriptions: Cefdinir 300 mg PO BID #10 cap Thiamine [Vitamin B1] 100 mg PO DAILY #100 tab Active and Home Medications: Home Medications amantadine HCl 100 mg tablet 100 mg PO QDAY tab 11/02/16 [History Confirmed Last Taken 03/28/18 09:00] aspirin 81 mg tablet 81 mg PO QDAY 11/02/16 [History Confirmed 03/29/18 Last Taken 03/28/18 09:00] atenolol 50 mg tablet 100 mg PO QAM tab 11/02/16 [History Confirmed 03/29/18 Last Taken 03/28/18 09:00] budesonide 90 mcg/actuation breath activated powder inhaler 2 inh INHALATION BID 11/02/16 [History Confirmed 03/29/18 Last Taken 03/28/18 21:00] metformin 500 mg tablet 1,000 mg PO BID 11/02/16 [History Confirmed 03/29/18 Last Taken 03/28/18 21:00] omeprazole 20 mg tablet,delayed release 20 mg PO BID 11/02/16 [History Confirmed 03/29/18 Last Taken 03/28/18 21:00] quetiapine 25 mg tablet 25 mg PO QPM tab 11/02/16 [History Confirmed 03/29/18 Last Taken 03/28/18 21:00] sertraline 100 mg tablet 100 mg PO QDAY 11/02/16 [History Confirmed 03/29/18 Last Taken 03/28/18 09:00] travoprost 0.004 % eye drops 1 drp OPHTHALMIC QPM 11/02/16 [History Confirmed Last Taken 03/28/18 21:00] Donepezil [Aricept] 5 mg PO DAILY 04/06/17 [History Confirmed 03/29/18 Last Taken 03/28/18 09:00] Accu-Chek 1 each FS ACHS strip 04/11/17 [Rx Confirmed 03/29/18 Last Taken 02/03 08:00] Acetaminophen [Tylenol] 650 mg PO Q6HP PRN tablet 04/11/17 [Rx Confirmed Last Taken 02/02/18 19:00] Insulin Lispro [Humalog] 0 - 6 units SQ ACHS unit 04/11/17 [Rx Confirmed Last Taken 03/28/18 21:00] Melatonin 10 mg PO HS 01/06/18 [History Confirmed 03/29/18 Last Taken 03/28/18 21:00] Pregabalin [Lyrica] 150 mg PO BID 01/06/18 [History Confirmed 03/29/18 Last Taken 03/28/18 12:00] Pregabalin [Lyrica] 300 mg PO HS 01/06/18 [History Confirmed 03/29/18 Last Taken 03/28/18 21:00] Torsemide 20 mg PO DAILY 01/06/18 [History Confirmed 03/29/18 Last Taken 21:00] Carbidopa/Levodopa [Rytary ER 23.75 mg-95 mg Cap] 3 cap PO TID 02/03/18 [ History Confirmed 03/29/18 Last Taken 03/28/18 21:00] Atorvastatin [Lipitor] 20 mg PO HS #30 tablet 02/05/18 [Rx Confirmed 03/29/18 Last Taken 03/28/18 21:00] Losartan [Cozaar] 100 mg PO QDAY #30 tablet 02/05/18 [Rx Confirmed 03/29/18 Last Taken 03/28/18 09:00] Acetaminophen W/Codeine #3 [Tylenol #3] 1 - 2 tab PO QHS PRN #20 tab 02/06/18 [ Rx Confirmed 03/29/18 Last Taken 03/28/18 21:00] Zolpidem [Ambien] 5 mg PO HSP PRN #30 tab 02/06/18 [Rx Confirmed 03/29/18 Last Taken 03/28/18 21:00] Medical - DS: Hosp Hospital course: Mr. Henriquez is a 62 year old M With a history of Parkinson's who brought in because of increasing weakness. He has been hospitalized several times since summer for failure to thrive at home acute kidney injuries and altered mental status. His said he was fine on Tuesday but she feels he is been weak for the past couple days he fell yesterday. They went to a [place] alley this evening had some few beers and when came home he does seem to extremely weak she could not get him in bed EMS was called just to bring him here. He also have an little more hallucinations lately which is a chronic issue but worse when he gets sick. Patient denies any coughing or shortness of breath out of the normal no chest pain stomach pain diarrhea. Does feel weak. In the ER he was found to have elevated lactate level chest x-ray which is concerning for left lobe infiltrate. CT brain which is unremarkable for any acute pathology and urinalysis is okay. Did notice some redness to the left lower extremity per the patient little bit tender. has not noticed that before but it is noticeably red for him. 03/29 Feeling a little better than when he came in. No new complaints. 03/30 Feeling better more energy. No new complaints, slept well. 03/31 Patient seen examined, no acute overnight issues, this AM seems back to baseline. He denies any hallucinations at this time, discharge plan reviewed with case management, Plan was to discharge home with . Patient will be discharged on oral antibiotics cefdinir for another 5 days. I am not very convinced with his h/o change in mental status being from an infection. He did present with elevated lactate acid , but blood work was not very suggestive of an acute infection. He does drink occasionally (as her reports) I doubt if he drinks more. I am starting him on oral thiamine. He also takes medications by him self and has reported that he would take more lyrica than prescribed (some times iwth alcohol? ) this could explain his intermittent symptoms. His works and he is left to his devices at home. The patient would do well to have his medication administration monitored by his to ensure that he is taking his medications appropriately. A/P Assessment: *?Sepsis based on qSOFA: source pulm vs Skin vs urine? -lactate normalized with fluids,(initially treated with vanco and zosyn) cultures are negative, pt responded, d/c iwth oral cefdinir. -CT chest no focal infiltrate but diffuse bronchial wall thickening *LLE cellulitis vs venous stasis dermatitis: appearing more like venous stasis dermatitis, he does have venous stasis changes. *viral PNA: Resp panel neg *Gen weak/Falls/debility/deconditioning/poor functional status: Secondary to underlying comorbidities/ alcohol/ medications *CKD II-III: *Parkinson's: Contributor to above *Hallucinations secondary to above, acute on chronic: *Failure to thrive at home: *Chronic wounds: *Diabetes with neuropathy: home med metformin and SSI *Dementia, mild: *Sarcoidosis: *Obesity *Hypertension: *Lung nodules -PT CT scan showed lung nodules, PCP to order repeat CT in 3-6 months for follow up. I have added thiamine to his home medication regime because of his alcohol use, he will take a short course of antibiotics. No other changes have been done or made to his chronic home medication list Discharge diagnosis: Sepsis - Time Spent with Patient Total time spent providing and/or coordinating discharge services: Greater than 30 minutes Medical - DS: Exam - Constitutional Vitals: Vital Signs Temp Pulse Pulse Resp BP Pulse Ox 03/31/18 07:04 88 18 03/31/18 07:01 98.2 F 16 146/85 99 03/31/18 04:00 97.1 F 72 20 127/68 97 03/31/18 00:00 98.2 F 70 18 143/88 97 03/30/18 20:00 97.7 F 68 18 155/88 100 03/30/18 16:00 97.6 F 68 18 154/90 99 03/30/18 12:00 97.1 F 76 18 160/96 98 Intake and Output 03/30/18 03/31/18 03/31/18 21:59 05:59 13:59 Intake Total 1280 / 1280 800 / 800 Output Total 1350 / 1350 850 / 850 Balance -70 / -70 -50 / -50 Intake: Oral 1280 / 1280 800 / 800 Output: Urine Catheter Amount 1350 / 1350 850 / 850 Other: Meal Dinner Nourishment/Supplement Percent of Meal Consumed 25% 100% Feeding Ability Assist with Tray Set Up Independent Urine Appearance Clear Uretheral (Mayo) Clear Urine Color Bright Yellow Uretheral (Mayo) Dark Yellow Urine Odor Normal Stool Size Copious Large Stool Color Brown Brown Stool Consistency Soft Loose # Bowel Movements 1 Weight 253 lb Additional comments: Constitutional; Afebrile, cooperative, alert, not in distress. Respiratory system: Air Entry equal on both sides, No crackles or wheezing, no rhonchi. CVS- Rate rhythm regular, S1,S2 heard, no gallop, no rub. Abdomen- Soft nontender abdomen, no organomegaly, no tenderness, no guarding or rigidity, [employer]- AOOx3, moving all extremities, no gross focal deficit noted. Medical - DS: Data Labs on day of discharge: Labs from last 24 hours 03/31/18 03/31/18 04:00 04:00 WBC 4.8 RBC 3.68 L Hgb 10.6 L Hct 31.8 L MCV 86.3 MCH 28.9 MCHC 33.4 RDW 14.9 H Plt Count 98 L MPV 11.7 H Gran % 65.1 Lymph % (Auto) 20.5 [place] % (Auto) 10.2 Eos % (Auto) 3.3 Baso % (Auto) 0.9 Gran # 3.1 Lymph # (Auto) 1.0 L [place] # (Auto) 0.5 Eos # (Auto) 0.2 Baso # (Auto) 0 Sodium 138 Potassium 5.1 Chloride 104 Carbon Dioxide 19 L Anion Gap 15.0 BUN 12 Creatinine 0.9 GFR Calculation 92 Glucose 137 H Uric Acid 5.8 Calcium 9.1 Phosphorus 3.7 Magnesium 2.1 Total Bilirubin 0.5 Direct Bilirubin < 0.2 GGT 45 AST 15 ALT < 5 Alkaline Phosphatase 98 Lactate Dehydrogenase 437 H Total Protein 7.1 Albumin 3.8 Globulin 3.3 Albumin/Globulin Ratio 1.2 Triglycerides 451 H Preliminary micro results at discharge 03/29/18 01:10 Blood Culture - Preliminary Blood 03/29/18 01:20 Blood Culture - Preliminary Blood Medical - DS: A/P - Patient/Caregiver Discharge Instructions Activity: increase activity as tolerated Diet: Cardiac, Consistent Carbohydrate Additional Instructions: Please do not drink alcohol, you are on many medications that can interact with alcohol causing change in mental status weakness fatigue. Take antibiotics for another 5 days. Start taking thiamine 100 mg once a day. Go to the emergency room if fever chest pain shortness of breath or any other acute concerning symptom. It is my recommendation that the patient's monitored the patient's medications and if possible supervised the administration of medications and then lock away the rest of the prescriptions to prevent any medication errors. - Follow up Plan Follow up with: Sada Bernard ARNP [Primary Care Provider] - 04/10/18 1:45 pm Disposition: Home Health Service Prognosis: Fair Rehab Potential: Fair I certify that the patient requires SNF services: No Overall status at discharge: patient is progressing back to baseline Medical - DS: Qual - VTE Deep Vein Thrombosis/Pulmonary Embolism Present on Admission: No
== END 2018-03-31 13:00 | disposition home health service (06) | DRG 871 ==
LOC: ED 23:37 → MEDSUR 03-29 04:17 → ICU 03-29 10:00
PROVIDERS: ADMIT Internal Medicine; ATTEND Internal Medicine
CPT/HCPCS: 84145; 87632; 97161; 97167; 99231; C1751; J0696; J1650; J1817; J2543; J3370; J7030; J7040; J7050; J7060; J7620; J7620-GY

== ENCOUNTER 2018-07-05 05:53 | Inpatient (IN) ==
--- NOTE | 2018-07-05 06:51 | Emergency Department Note ---
Fall HPI - General Chief Complaint: Fall Stated Complaint: falls x2 tonight Time Seen by Provider: 07/05/18 06:41 Mode of arrival: EMS - History of Present Illness HPI Narrative: This pleasant 62-year-old male comes emergency room accompanied by his brought by EMS. He has had 5 episodes of falling in the past couple weeks. He attributes this to generalized weakness and weakness of his legs plus some dizziness. He did not trip. He has not injured himself except for skinning his knees. 3 months ago it seemed that weakness may have started after he was admitted for acute renal failure because of dehydration. He spent a couple weeks and [place]. There is been no loss of consciousness. REVIEW OF SYSTEMS: Denies fever, chills, sweats. No chest pains or palpitations. No cough, shortness of breath, wheeze No abdominal pain, nausea, vomiting, diarrhea, constipation No dysuria No back pain No headaches some mild lightheadedness dizziness. Some imbalance. Has some chronic anxiety and depression. Takes Zoloft. - Related Data Home Medications Medication Instructions Recorded Confirmed amantadine HCl 100 mg tablet 100 mg PO QDAY tab 11/02/16 07/05/18 aspirin 81 mg tablet 81 mg PO QDAY 11/02/16 07/05/18 atenolol 50 mg tablet 100 mg PO QAM tab 11/02/16 07/05/18 budesonide 90 mcg/actuation breath 2 inh INHALATION BID 11/02/16 07/05/18 activated powder inhaler metformin 500 mg tablet 1,000 mg PO BID 11/02/16 07/05/18 omeprazole 20 mg tablet,delayed 20 mg PO BID 11/02/16 07/05/18 release quetiapine 25 mg tablet 25 mg PO QAM tab 11/02/16 07/05/18 sertraline 100 mg tablet 100 mg PO QDAY 11/02/16 07/05/18 travoprost 0.004 % eye drops 1 drp OPHTHALMIC QPM 11/02/16 07/05/18 Donepezil [Aricept] 5 mg PO DAILY 04/06/17 07/05/18 Melatonin 10 mg PO HS 01/06/18 07/05/18 Pregabalin [Lyrica] 150 mg PO BID 01/06/18 07/05/18 Pregabalin [Lyrica] 300 mg PO HS 01/06/18 07/05/18 Torsemide 20 mg PO DAILY 01/06/18 07/05/18 insulin glargine (U-100) 100 65 unit SUB-Q BID ml 06/23/18 07/05/18 unit/mL (3 mL) subcutaneous pen insulin lispro (U- 100) 100 See Rx Instructions SUB-Q .COMPLEX 06/23/18 07/05/18 unit/mL subcutaneous solution pregabalin 150 mg capsule 150 mg PO BID 06/23/18 07/05/18 pregabalin 150 mg capsule 300 mg PO QHS cap 06/23/18 07/05/18 simvastatin 5 mg tablet 2.5 mg PO QHS tab 06/23/18 07/05/18 Carbidopa/Levodopa Cr 50/200 1 tab PO QID 07/05/18 07/05/18 [Sinemet Cr 50/200] Thiamine [Vitamin B1] 100 mg PO DAILY 07/05/18 07/05/18 Previous Rx's Medication Instructions Recorded Acetaminophen [Tylenol] 650 mg PO Q6HP PRN tablet 04/11/17 Insulin Lispro [Humalog] 0 - 6 units SQ ACHS unit 04/11/17 Losartan [Cozaar] 100 mg PO QDAY #30 tablet 02/05/18 Acetaminophen W/Codeine #3 1 - 2 tab PO QHS PRN #20 tab 02/06/18 [Tylenol #3] Zolpidem [Ambien] 5 mg PO HSP PRN #30 tab 02/06/18 Allergies Allergy/AdvReac Type Severity Reaction Status Date / Time terbinafine [From Lamisil] AdvReac Mild Vomiting Verified 01/05/18 16:09 Fall PMH - Past Medical History [facility], [facility] Narrative: Medical History (Last Updated 07/05/18 @ 07:03 by Hardeep Nelson DO) Obesity (BMI 35.0-39.9 without comorbidity) (Chronic) Diabetes mellitus type II, uncontrolled (Chronic) Type 2 diabetes mellitus with mild nonproliferative diabetic retinopathy without macular edema, bilateral (Chronic) Diabetic peripheral neuropathy (Chronic) Sepsis (Resolved) Heart murmur (Chronic) DVT prophylaxis (Chronic) retirement (current) use of aspirin (Chronic) 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 (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) Restless leg syndrome (Chronic) Essential hypertension (Chronic) Hyperlipidemia, mixed (Chronic) Depression, major, recurrent, moderate (Chronic) Alcohol use (Chronic) Multiple falls (Chronic) Altered mental status (Chronic) Decreased renal function (Chronic) Acute renal failure (Chronic) Mild cognitive impairment (Chronic) Rhabdomyolysis (Resolved) Hallucinations (Chronic) Dehydration (Resolved) 1st degree AV block (Chronic) Left bundle branch block (LBBB) (Chronic) Sarcoidosis, lung (Chronic) Paresthesia (Chronic) Weakness (Chronic) Heartburn (Chronic) Parkinson's disease (Chronic) Sciatica of left side (Chronic) Depression (Chronic) GERD (gastroesophageal reflux disease) (Chronic) Mixed incontinence urge and stress (Chronic) Primary open-angle glaucoma, bilateral, moderate stage (Chronic) Chronic insomnia (Chronic) Colon polyps (Chronic) Trigger finger of left thumb (Chronic) Burn of second degree of buttock, initial encounter (Resolved) Cellulitis of lower extremity (Resolved) Confusion (Resolved) Elevated BUN (Resolved) Elevated serum creatinine (Resolved) Hallucinations (Resolved) History of diagnostic ultrasound (Resolved 06/27/16) History of echocardiogram (Resolved 06/27/16) Hyperkalemia (Resolved) Hyperpotassemia (Resolved) Hypoglycemia (Resolved) Hypoxia (Resolved) Laceration (Resolved) Pneumonia (Resolved) Sepsis (Resolved) Uremia, acute (Resolved) Anxiety, general Depression, major, recurrent 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) Past Surgical History (Last Updated 06/23/18 @ 10:04 by Corrie Villanueva) Acquired absence of right foot (Chronic) Cataract extraction status, left eye (Chronic) Cataract extraction status, right eye (Chronic) History of amputation of great toe (Chronic) History of appendectomy (Chronic) History of lung biopsy (Chronic) History of right below knee amputation (Chronic) History of thumb surgery (Chronic) Status post wrist surgery (Chronic) Family History (Last Updated 06/22/18 @ 16:39 by Corrie Villanueva) Father Bladder cancer Brother Lung cancer Other No pertinent family history Medical history: Reports: coronary artery disease, DM, hyperlipidemia, hypertension, obesity (morbid, bmi 40.6), other Psychiatric history: Reports: anxiety, depression Family history: Reports: non-contributory - Social History smoking status: Never smoker Alcohol use: Reports: Occasionally (Almost weekly but not much.) Drug use: Reports: none. Denies: marijuana Physical Exam Limitations: physical limitation General appearance: alert, in no apparent distress, obese Head: atraumatic, normocephalic Eye: Present: EOMI (maybe slight asymmetry of gaze) ENT: mucous membranes dry Neck: Present: trachea midline. Absent: lymphadenopathy, thyromegaly Chest: Present: symmetric chest wall rise Respiratory: Present: normal lung sounds bilaterally. Absent: respiratory distress, wheezes, stridor, accessory muscle use, prolonged expiratory phase Cardiovascular: Present: regular rate, normal rhythm, systolic murmur. Absent: diastolic murmur Type of murmur: systolic (holo-) Location of murmur: LUSB Intensity of murmur: 05/21 (1-2) Abdominal: Present: soft, tenderness (Subjectively, lower quadrants. He has been fairly mild.). Absent: distention, guarding, rebound, rigidity, o rganomegaly, mass Extremities: Present: other (Right BKA. Left with mild edema and scattered pinkness and dryness/eczematous surface.) Back: Absent: CVA tenderness (R), CVA tenderness (L), spinous process tenderness Neurological: Present: alert, other (Some inaccurate or delayed responses as if difficulty understanding fully questions and/or circumstances/situations.) Psychiatric: Present: normal affect, normal mood Skin: Present: warm, dry Course Vital Signs Pulse Rate 58 L 07/05/18 05:55 Respiratory Rate 18 07/05/18 05:55 Blood Pressure 91/64 07/05/18 05:55 Pulse Oximetry (%) 96 07/05/18 05:55 Temperature 96.8 F L 07/05/18 07:31 Pulse Rate 96 H 07/05/18 08:42 Respiratory Rate 15 07/05/18 09:17 Blood Pressure 134/95 07/05/18 09:17 Pulse Oximetry (%) 80 L 07/05/18 08:42 Fall - MDM Narrative Medical decision making narrative: 6:28 AM Falls and weakness increasing in frequency and severity with history of acute renal failure, insulin-dependent diabetes and multiple medical issues and problems. Has an abrasion on the right knee. We will do multiple labs, EKG. 7:05 AM Left bundle branch block on EKG unchanged from previous. 7:40 AM Labs include a white count at its low at 4.0, stable anemia at 10.7/32.7 and stable thrombocytopenia at 87. Also demonstrates significantly elevated BUN at 112 and creatinine at 4.5. 8:15 AM After speaking with patient and his and also with Dr. Briggs, hospitalist, agreement to have patient stay in the hospital to help improve his renal function. He is probably been over diuresed with torsemide. A CT scan of his head will be done first however. 8:[address] of his neck was also done because of patient realizing he had some pain and he had the falls and is not a great historian. This was negative for acute fracture but possible endplate mild compression deformity at T2. CT of the head showed generalized atrophy but no specific other findings. Patient will be transferred to telemetry; Dr. Briggs has kindly accepted his care. - Medical Records Medical records reviewed: Yes I reviewed the patient's medical records. - Lab Data Lab results reviewed: Yes I reviewed the patient's lab results. Result diagrams: 07/05/18 06:45 07/05/18 06:45 Lab Results 07/05/18 07/05/18 07/05/18 Range/Units 06:45 06:45 06:45 WBC 4.0 L (4.5-11.0) K/mcL RBC 4.02 L (4.50-5.90) M/mcL Hgb 10.7 L (13.5-16.5) g/dL Hct 32.7 L (41.0-55.0) % MCV 81.4 (80.0-100.0) fL MCH 26.5 (26.0-34.0) pg MCHC 32.6 (31.0-36.0) g/dL RDW 18.6 H (11.5-14.5) % Plt Count 87 L (140-440) K/mcL MPV 12.3 H (7.4-10.4) fL Gran % 59.9 (38.0-78.0) % Lymph % (Auto) 25.2 (15.5-49.0) % [place] % (Auto) 13.1 H (1.0-12.0) % Eos % (Auto) 1.0 (0.0-7.0) % Baso % (Auto) 0.8 (0.0-2.0) % Gran # 2.4 (1.8-8.0) K/mcL Lymph # (Auto) 1.0 L (1.5-4.8) K/mcL [place] # (Auto) 0.5 (0.1-0.9) K/mcL Eos # (Auto) 0 (0.0-0.7) K/mcL Baso # (Auto) 0 (0.0-0.3) K/mcL Sodium 141 (133-145) mmol/L Potassium 5.3 H (3.3-5.1) mmol/L Chloride 100 (96-108) mmol/L Carbon Dioxide 23 (22-30) mmol/L Anion Gap 18.0 H (8-16) BUN 112 H* (8-23) mg/dl Creatinine 4.5 H (0.7-1.2) mg/dl GFR Calculation 13 Glucose 129 H (70-105) mg/dL Calcium 8.9 (8.6-10.4) mg/dl Total Bilirubin 0.6 (0.0-1.0) mg/dL AST 9 (0-37) U/l ALT < 5 (0-40) U/l Alkaline Phosphatase 153 H (39-117) U/L Troponin T 0.01 (0-0.03) ng/ml C-Reactive Protein 0.7 (0.0-0.8) mg/dl Total Protein 7.7 (5.9-8.4) gm/dL Albumin 4.2 (3.2-5.2) gm/dL Globulin 3.5 (2.2-3.7) gm/dL Albumin/Globulin Ratio 1.2 (1.0-2.3) Urine Color Urine Appearance Urine pH (5.0-9.0) Ur Specific [place] (1.000-1.035) Urine Protein (NEG) mg/dL Urine Glucose (UA) (NEG) mg/dL Urine Ketones (NEG) mg/dL Urine Occult Blood (<0.03) mg/dL Urine Nitrate (NEG) Urine Bilirubin (NEG) mg/dL Urine Urobilinogen (NEG) mg/dL Ur Leukocyte Esterase (NEG) /uL Urine RBC (0-1) /hpf Urine WBC (0-4) /hpf Ur Squamous Epith Cells (0-4) /hpf Urine Bacteria (0) /hpf Hyaline Casts (0-2) /lpf Urine Mucus (0) /hpf Ur Culture Indicated? 07/05/18 Range/Units 08:03 WBC (4.5-11.0) K/mcL RBC (4.50-5.90) M/mcL Hgb (13.5-16.5) g/dL Hct (41.0-55.0) % MCV (80.0-100.0) fL MCH (26.0-34.0) pg MCHC (31.0-36.0) g/dL RDW (11.5-14.5) % Plt Count (140-440) K/mcL MPV (7.4-10.4) fL Gran % (38.0-78.0) % Lymph % (Auto) (15.5-49.0) % Isabel[place] % (Auto) (1.0-12.0) % Eos % (Auto) (0.0-7.0) % Baso % (Auto) (0.0-2.0) % Gran # (1.8-8.0) K/mcL Lymph # (Auto) (1.5-4.8) K/mcL [place] # (Auto) (0.1-0.9) K/mcL Eos # (Auto) (0.0-0.7) K/mcL Baso # (Auto) (0.0-0.3) K/mcL Sodium (133-145) mmol/L Potassium (3.3-5.1) mmol/L Chloride (96-108) mmol/L Carbon Dioxide (22-30) mmol/L Anion Gap (8-16) BUN (8-23) mg/dl Creatinine (0.7-1.2) mg/dl GFR Calculation Glucose (70-105) mg/dL Calcium (8.6-10.4) mg/dl Total Bilirubin (0.0-1.0) mg/dL AST (0-37) U/l ALT (0-40) U/l Alkaline Phosphatase (39-117) U/L Troponin T (0-0.03) ng/ml C-Reactive Protein (0.0-0.8) mg/dl Total Protein (5.9-8.4) gm/dL Albumin (3.2-5.2) gm/dL Globulin (2.2-3.7) gm/dL Albumin/Globulin Ratio (1.0-2.3) Urine Color Yellow Urine Appearance Clear Urine pH 5.0 (5.0-9.0) Ur Specific [place] 1.014 (1.000-1.035) Urine Protein Neg (NEG) mg/dL Urine Glucose (UA) Negative (NEG) mg/dL Urine Ketones Neg (NEG) mg/dL Urine Occult Blood Neg (<0.03) mg/dL Urine Nitrate Neg (NEG) Urine Bilirubin Neg (NEG) mg/dL Urine Urobilinogen Neg (NEG) mg/dL Ur Leukocyte Esterase Neg (NEG) /uL Urine RBC < 1 (0-1) /hpf Urine WBC 1 (0-4) /hpf Ur Squamous Epith Cells 1 (0-4) /hpf Urine Bacteria 0 (0) /hpf Hyaline Casts 13 H (0-2) /lpf Urine Mucus Few (0) /hpf Ur Culture Indicated? No - Radiology Data Radiology results reviewed: Yes I reviewed the patient's radiology results. - EKG Data EKG results narrative: Left bundle branch block pattern similar to previous. No acute ACS findings able to be identified. This EKG will be read by a alarm operator. Disposition Pt seen by COMMUNITY CHEST OFFICER/PA only: No Clinical Impression: Frequent falls, Pancytopenia, Xerostomia Acute on chronic renal failure Qualifiers: Acute renal failure type: unspecified Chronic kidney disease stage: stage 4 (severe) Qualified Code(s): N17.9 - Acute kidney failure, unspecified; N18.4 - Chronic kidney disease, stage 4 (severe) Abrasion of knee, left Qualifiers: Encounter type: initial encounter Qualified Code(s): S80.212A - Abrasion, left knee, initial encounter Disposition: Xfer As Inpt ([facility]) Condition: Good Referrals: Sada Bernard ARNP [Primary Care Provider] -
[2018-07-05 07:32] LABS: Basophils # (Auto) 0 K/mcL (0.0-0.3); Basophils % (Auto) 0.8 % (0.0-2.0); Eosinophils # (Auto) 0 K/mcL (0.0-0.7); Granulocytes % (Auto) 59.9 % (38.0-78.0); Lymphocytes % (Auto) 25.2 % (15.5-49.0); Mean Cell Volume 81.4 fL (80.0-100.0); Mean Corpuscular HGB Conc 32.6 g/dL (31.0-36.0); Monocytes # (Auto) 0.5 K/mcL (0.1-0.9); Monocytes % (Auto) 13.1 % (1.0-12.0); Platelet Count 87 K/mcL (140-440); RBC 4.02 M/mcL (4.50-5.90); Red Cell Distribution Width 18.6 % (11.5-14.5)
[2018-07-05 08:03] LABS: ALT/SGPT < 5 U/l (0-40); Albumin 4.2 gm/dL (3.2-5.2); Albumin/Globulin Ratio 1.2 (1.0-2.3); Alkaline Phosphatase 153 U/L (39-117); Blood Urea Nitrogen 112 mg/dl (8-23); C-Reactive Protein 0.7 mg/dl (0.0-0.8)
[2018-07-05] MEDS ORDERED: 0.9 % SODIUM CHLORIDE 1,000 ML IV ONE (08:23)
[2018-07-05 08:43] LABS: Appearance,Urine CLEAR; Bacteria,Urine 0 /hpf (0); Bilirubin,Urine NEG (NEG); Color,Urine YELLOW; Glucose,Urine (UA) NEGATIVE (NEG); Leukocyte Esterase,Urine NEG /uL (NEG); Mucus,Urine FEW /hpf (0); Protein,Urine NEG (NEG); Specific Gravity,Urine 1.014 (1.000-1.035); Urine Blood NEG mg/dL (<0.03); Urine Hyaline Cast 13 /lpf (0-2); Urine RBC < 1 /hpf (0-1); Urine Squamous Epithelial Cell 1 /hpf (0-4); Urine WBC 1 /hpf (0-4); Urobilinogen,Urine NEG (NEG)
--- NOTE | 2018-07-05 09:10 | Cat Scan Report ---
CLINICAL INFORMATION: Multiple falls COMPARISON: Previous brain CT scans dated 05/21/2018, 03/29/2018, 01/05/2019 TECHNIQUE: Axial noncontrast-enhanced images through the brain. FINDINGS: No acute intracranial hemorrhage. No subdural hematoma. No subarachnoid hemorrhage. No intra-axial hematoma. No focal intra-axial attenuation abnormality or localized mass effect. No midline shift. There is cerebral atrophy with ventricular and sulcal enlargement, accelerated for age. Brainstem and cerebellum are negative. Basilar cisterns are normal. No hyperdense middle cerebral artery sign. No calvarial fracture. No lytic lesion. Temporal bones are negative. No basilar skull fracture. IMPRESSION: 1. Cerebral atrophy 2. No acute abnormality. No interval change The exam was performed using radiation dose optimization techniques including, but not limited to, automated exposure control, adjustment of the mA and/or kV according to patient size and use of iterative reconstruction technique. Interpreted and Authenticated by: Abdelrahman Parmar 07/05/18
[2018-07-05] MEDS ORDERED: CARBIDOPA/LEVODOPA CR 50/200 TABLET PO ONE (09:21)
[2018-07-05] MEDS ORDERED: PREGABALIN 150 MG CAPSULE PO ONE (09:22)
--- NOTE | 2018-07-05 09:27 | Cat Scan Report ---
CLINICAL INFORMATION: Fall. Neck pain. TECHNIQUE: Thin section axial images of the cervical spine. Sagittal and coronal reformatted images. COMPARISON: None. FINDINGS: Mild T1 superior endplate compression. No discrete fracture line identified. Chronicity of this mild compression deformity is not certain without comparison studies. Acute compression is possible. There is no retropulsed fragment. This superior endplate depression is limited to the anterior column. Middle and posterior columns are negative. This is stable. There is mild depression of the T2 superior endplate. No cortical irregularity. There is a small Schmorl's node and there is sclerosis. This is probably chronic. C2, C3, C4, C5, C6, C7 vertebral bodies are normal. No cervical spine fracture. Spinous processes are negative. Facets are normally aligned. There is degenerative facet arthropathy, worst at the C4-5 level on the left. There is mild multilevel degenerative disc disease No prevertebral soft tissue swelling. No soft tissue mass. Lung apices are negative. Odontoid process is normal. No atlantoaxial subluxation. Occipital condyles are negative. IMPRESSION: 1. T1 superior endplate compression deformity. Chronicity is not certain. This is a stable abnormality. There is no retropulsion. 2. T2 superior endplate depression, probably chronic 3. No other acute abnormality. 4. Degenerative disc disease and facet arthropathy as above Interpreted and Authenticated by: Abdelrahman Parmar 07/05/18
[2018-07-05] MEDS ORDERED: CARBIDOPA/LEVODOPA CR 25/100 TABLET PO ONE (09:30)
--- NOTE | 2018-07-05 12:24 | Internal Med History&Physical ---
Medical - H&P: [facility] Patient information: Note initiated : 07/05/18 at 12:18 pm Service Date, if different from initiated Date: [] Patient: Abdelrahman Henriquez 62 y/o M admitted on 07/05/18 for Falls x 2 Tonight. Chief Complaint: [] History of present illness: Mr. Henriquez is a 62 year old M Who presents with weakness and falling x5. He denies any syncope or dizziness/lightheadedness he just feels weak. He was admitted to [facility] in January and March 16 was for a cellulitis infection wound was for acute kidney injury. He was admitted to [place] in May for acute kidney injury. And was there for several weeks. He says after discharge he did well for about 3 weeks and then started feeling weaker and weaker. He is on a diuretic, torsemide. Any recent illnesses,no chest pain shortness of breath or coughing. No abdominal pain or diarrhea. He has had history of failure to thrive at home is had multiple hospitalizations. Discussions about placement at a [facility] have taken place but he has been resistant. Review of Systems: Pertinent positives as above. Denies headache/fever/chills/nausea/vomiting/ch est or abdominal pain/cough/dyspnea/diarrhea. Remaining 10 point review of systems reviewed negative Medical - H&P: [facility] Medical history: Medical History (Last Updated 07/05/18 @ 09:25 by Hardeep Nelson DO) Lewy body dementia (Chronic) Thrombocytopenia (Chronic) Elevated serum lactate dehydrogenase (LDH) (Chronic) Anemia in chronic illness (Chronic) Obesity (BMI 35.0-39.9 without comorbidity) (Chronic) Multiple falls (Chronic) Diabetes mellitus type II, uncontrolled (Chronic) Type 2 diabetes mellitus with mild nonproliferative diabetic retinopathy without macular edema, bilateral (Chronic) Diabetic peripheral neuropathy (Chronic) Sepsis (Resolved) Heart murmur (Chronic) DVT prophylaxis (Chronic) Restless leg syndrome (Chronic) Essential hypertension (Chronic) Hyperlipidemia, mixed (Chronic) Depression, major, recurrent, moderate (Chronic) Alcohol use (Chronic) Mild cognitive impairment (Chronic) Altered mental status (Chronic) Acute renal failure (Resolved) Rhabdomyolysis (Resolved) Hallucinations (Chronic) Dehydration (Resolved) 1st degree AV block (Chronic) Left bundle branch block (LBBB) (Chronic) Sarcoidosis, lung (Chronic) Weakness (Chronic) Parkinson's disease (Chronic) correction (current) use of insulin (Chronic) GERD (gastroesophageal reflux disease) (Chronic) Mixed incontinence urge and stress (Chronic) Anxiety, generalized (Chronic) Depression (Chronic) Primary open-angle glaucoma, bilateral, moderate stage (Chronic) Paresthesia (Chronic) Chronic insomnia (Chronic) 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) use of aspirin (Chronic) Colon polyps (Chronic) Trigger finger of left thumb (Chronic) Burn of second degree of buttock, initial encounter (Resolved) Cellulitis of lower extremity (Resolved) Confusion (Resolved) Elevated BUN (Resolved) Elevated serum creatinine (Resolved) Hallucinations (Resolved) History of diagnostic ultrasound (Resolved 06/27/16) History of echocardiogram (Resolved 06/27/16) Hyperkalemia (Resolved) Hyperpotassemia (Resolved) Hypoglycemia (Resolved) Hypoxia (Resolved) Laceration (Resolved) Pneumonia (Resolved) Sciatica of left side (Resolved) Sepsis (Resolved) Uremia, acute (Resolved) Past Surgical History (Last Updated 06/23/18 @ 10:04 by Corrie Villanueva) Acquired absence of right foot (Chronic) Cataract extraction status, left eye (Chronic) Cataract extraction status, right eye (Chronic) History of amputation of great toe (Chronic) History of appendectomy (Chronic) History of lung biopsy (Chronic) History of right below knee amputation (Chronic) History of thumb surgery (Chronic) Status post wrist surgery (Chronic) Family History (Last Updated 06/22/18 @ 16:39 by Corrie Villanueva) Father Bladder cancer Brother Lung cancer Other No pertinent family history Social History (Last Updated 06/23/18 @ 10:24 by Corrie Villanueva) Denies tobacco drinks alcohol occasionally typically uses a walker and also wheelchair to get around, lives at home with his Medical - H&P: Meds Home Medications Medication Instructions Recorded Confirmed Type amantadine HCl 100 mg tablet 100 mg PO QDAY tab 11/02/16 07/05/18 History aspirin 81 mg tablet 81 mg PO QDAY 11/02/16 07/05/18 History atenolol 50 mg tablet 100 mg PO QAM tab 11/02/16 07/05/18 History budesonide 90 mcg/actuation breath 2 inh INHALATION BID 11/02/16 07/05/18 History activated powder inhaler metformin 500 mg tablet 1,000 mg PO BID 11/02/16 07/05/18 History omeprazole 20 mg tablet,delayed 20 mg PO BID 11/02/16 07/05/18 History release quetiapine 25 mg tablet 25 mg PO HS tab 11/02/16 07/05/18 History sertraline 100 mg tablet 100 mg PO QDAY 11/02/16 07/05/18 History travoprost 0.004 % eye drops 1 drp OPHTHALMIC QPM 11/02/16 07/05/18 History Donepezil [Aricept] 5 mg PO DAILY 04/06/17 07/05/18 History Acetaminophen [Tylenol] 650 mg PO Q6HP PRN tablet 04/11/17 07/05/18 Rx Insulin Lispro [Humalog] 0 - 6 units SQ ACHS unit 04/11/17 07/05/18 Rx Melatonin 10 mg PO HS 01/06/18 07/05/18 History Pregabalin [Lyrica] 150 mg PO BID 01/06/18 07/05/18 History Pregabalin [Lyrica] 300 mg PO HS 01/06/18 07/05/18 History Acetaminophen W/Codeine #3 1 - 2 tab PO QHS PRN #20 tab 02/06/18 07/05/18 Rx [Tylenol #3] Zolpidem [Ambien] 5 mg PO HSP PRN #30 tab 02/06/18 07/05/18 Rx insulin glargine (U-100) 100 65 unit SUB-Q BID ml 06/23/18 07/05/18 History unit/mL (3 mL) subcutaneous pen insulin lispro (U- 100) 100 See Rx Instructions SUB-Q .COMPLEX 06/23/18 07/05/18 History unit/mL subcutaneous solution simvastatin 5 mg tablet 2.5 mg PO QHS tab 06/23/18 07/05/18 History Carbidopa/Levodopa Cr 50/200 1 tab PO QID 07/05/18 07/05/18 History [Sinemet Cr 50/200] Losartan/Hydrochlorothiazide 1 tab PO DAILY 07/05/18 07/05/18 History [Losartan-Hctz 100-12.5 mg Tab] Thiamine [Vitamin B1] 100 mg PO DAILY 07/05/18 07/05/18 History Torsemide [Demadex] 20 mg PO DAILY 07/05/18 07/05/18 History Allergies Allergy/AdvReac Type Severity Reaction Status Date / Time terbinafine [From Lamisil] AdvReac Mild Vomiting Verified 01/05/18 16:09 Medical - H&P: Exam - Constitutional Vitals: Temp Pulse Resp BP Pulse Ox 98.0 F 62 18 93/66 96 07/05/18 11:57 07/05/18 10:34 07/05/18 11:57 07/05/18 11:57 07/05/18 11:57 Exam: General: Awake, No acute Distress, obese Eyes/N/T: EOMI, PEERL, DMM Head/Neck: neck supple, normocephalic atraumatic CV: RRR, No murmurs, normal s1/s2 Pulm: Clear b/l, no wheezing/rhonchi/rales Abd: soft, nontender, +BS x4 Ext: no clubbing/cyanosis/edema, right BKA Neuro: no focal deficits, moves all extremities, CN 2-12 grossly intact, symm etrical strength b/l upper, decreased sensation left lower extremity from diabetic neuropathy Skin: warm/dry Medical - H&P: Reslt - Labs CBC & Chem 7: 07/05/18 06:45 07/05/18 06:45 Labs: Short CBC 07/05/18 Range/Units 06:45 WBC 4.0 L (4.5-11.0) K/mcL Hgb 10.7 L (13.5-16.5) g/dL Hct 32.7 L (41.0-55.0) % Plt Count 87 L (140-440) K/mcL BMP 07/05/18 06:45 Sodium 141 Potassium 5.3 H Chloride 100 Carbon Dioxide 23 BUN 112 H* Creatinine 4.5 H Glucose 129 H Calcium 8.9 Cardiac Enzymes 07/05/18 Range/Units 06:45 Troponin T 0.01 (0-0.03) ng/ml Liver Function 07/05/18 Range/Units 06:45 Total Bilirubin 0.6 (0.0-1.0) mg/dL AST 9 (0-37) U/l ALT < 5 (0-40) U/l Alkaline Phosphatase 153 H (39-117) U/L Albumin 4.2 (3.2-5.2) gm/dL Urine 07/05/18 Range/Units 08:03 Urine Color Yellow Urine Appearance Clear Urine pH 5.0 (5.0-9.0) Ur Specific [place] 1.014 (1.000-1.035) Urine Protein Neg (NEG) mg/dL Urine Glucose (UA) Negative (NEG) mg/dL Medical - H&P: A/P - Narrative A/P Narrative: Assessment: *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: Prerenal secondary to poor oral intake and diuretic use *Falls/debility/deconditioning/poor functional status: Secondary to underlying comorbidities and recent multiple hospitalizations *Parkinson's: Contributor to above *Failure to thrive at home: multiple hospitalizations *Diabetes w/neuropathy: on metformin and insulin *Dementia, mild: *Sarcoidosis: was supposed to establish with senior datastage developer *Obesity *Hypertension: *h/o Pancytopnia: anemia, leukopenia, thrombcytopenia *Hyperkalemia, mild: Plan: -IV fluid hydration -Monitor urine output and follow-up renal status -Continue home medications except for hold his diuretics and losartan - -PT OT -CM -SSI -f/u with hematology for pancytopenia -ppx: heparin (monitor platelets, if drop to 50k then hold)/home ppi Page 5 of 6 Medical - H&P: Qual - VTE Deep Vein Thrombosis/Pulmonary Embolism Present on Admission: No
[2018-07-05] MEDS ORDERED: LACTULOSE 20 GM/30 ML ORAL.SOL PO PRN (13:08)
[2018-07-05] MEDS ORDERED: ONDANSETRON 4 MG/2 ML VIAL IV PRN (13:08)
[2018-07-05] MEDS ORDERED: MAGNESIUM SULFATE 2 GM/50 ML BAG IV PRN (13:08)
[2018-07-05] MEDS ORDERED: IPRATROPIUM/ALBUTEROL 3 ML AMPUL.NEB NEB PRN (13:08)
[2018-07-05] MEDS ORDERED: PROMETHAZINE 12.5 MG SUPP.RECT PR PRN (13:08)
[2018-07-05] MEDS ORDERED: hydrALAZINE 20 MG/ML VIAL IV PRN (13:08)
[2018-07-05] MEDS ORDERED: POLYETHYLENE GLYCOL 3350 17 GM PACKET PO PRN (13:08)
[2018-07-05] MEDS ORDERED: ACETAMINOPHEN 325 MG TABLET PO PRN (13:08)
[2018-07-05] MEDS ORDERED: DEXTROSE 50% 50 ML VIAL IV PRN (13:37)
[2018-07-05] MEDS: 0.9 % SODIUM CHLORIDE 1,000 ML IV SCH ×2 (14:06→20:08)
[2018-07-05] MEDS: 0.9 % SODIUM CHLORIDE 10 ML SYRINGE IV SCH ×2 (14:10→20:07)
[2018-07-05] MEDS: INSULIN LISPRO 1 UNIT/0.01 ML UNIT SQ SCH ×2 (17:03→20:11)
[2018-07-05] MEDS: CARBIDOPA/LEVODOPA CR 25/100 TABLET PO SCH (17:08)
[2018-07-05] MEDS: DOCUSATE SODIUM 100 MG CAPSULE PO SCH (20:06)
[2018-07-05] MEDS: INSULIN GLARGINE, HUMAN 1 UNIT/0.01 ML SQ SCH (20:07)
[2018-07-05] MEDS: HEPARIN 5,000 UNIT/ML VIAL SQ SCH (20:07)
[2018-07-05] MEDS: BUDESONIDE 1 PUFF INHALER INH SCH (20:11)
[2018-07-05] MEDS ORDERED: FAMOTIDINE 20 MG TABLET PO SCH (21:00)
[2018-07-05] MEDS ORDERED: ZOLPIDEM 5 MG TABLET PO PRN (21:00)
[2018-07-05] MEDS ORDERED: ACETAMINOPHEN W/CODEINE #3 1 TABLET PO PRN (21:00)
[2018-07-05] MEDS ORDERED: MELATONIN 3 MG TABLET PO SCH (21:00)
[2018-07-05] MEDS ORDERED: QUEtiapine 25 MG TABLET PO SCH (21:00)
[2018-07-05] MEDS ORDERED: PREGABALIN 150 MG CAPSULE PO SCH (21:00)
[2018-07-05] MEDS ORDERED: SIMVASTATIN 10 MG TABLET PO SCH (21:00)
[2018-07-05] MEDS ORDERED: TRAVOPROST OPHTH DROPS BOTTLE 2.5ML OU SCH (21:00)
[2018-07-05] MEDS ORDERED: SERTRALINE 100 MG TABLET PO SCH (21:00)
[2018-07-06] MEDS: CARBIDOPA/LEVODOPA CR 25/100 TABLET PO SCH ×3 (00:35→12:35)
[2018-07-06] MEDS: 0.9 % SODIUM CHLORIDE 1,000 ML IV SCH (03:00)
[2018-07-06] MEDS: 0.9 % SODIUM CHLORIDE 10 ML SYRINGE IV SCH ×3 (05:26→20:24)
[2018-07-06 05:49] LABS: Basophils # (Auto) 0 K/mcL (0.0-0.3); Basophils % (Auto) 0.7 % (0.0-2.0); Eosinophils # (Auto) 0 K/mcL (0.0-0.7); Eosinophils % (Auto) 0.9 % (0.0-7.0); Granulocytes % (Auto) 68.1 % (38.0-78.0); Lymphocytes # (Auto) 0.7 K/mcL (1.5-4.8); Mean Cell Volume 81.8 fL (80.0-100.0); Mean Corpuscular HGB Conc 32.7 g/dL (31.0-36.0); Monocytes # (Auto) 0.6 K/mcL (0.1-0.9); Monocytes % (Auto) 13.3 % (1.0-12.0); Platelet Count 72 K/mcL (140-440); RBC 3.69 M/mcL (4.50-5.90); Red Cell Distribution Width 18.9 % (11.5-14.5)
[2018-07-06 06:26] LABS: ALT/SGPT < 5 U/l (0-40); Albumin 3.9 gm/dL (3.2-5.2); Albumin/Globulin Ratio 1.2 (1.0-2.3); Alkaline Phosphatase 117 U/L (39-117); Bilirubin,Direct < 0.2 mg/dL (0.0-0.3); Blood Urea Nitrogen 79 mg/dl (8-23); Gamma Glutamyl Transpeptidase 23 U/L (8-61); Uric Acid 10.1 mg/dL (2.5-8.0)
--- NOTE | 2018-07-06 07:28 | Internal Med Progress Note ---
Medical - PN: Subj Patient information: Note initiated : 07/06/18 at 7:21 am Service Date, if different from initiated Date: [] Patient: Abdelrahman Henriquez 62 y/o M admitted on 07/05/18 for Falls x 2 Tonight. Chief Complaint: [] Interval history: Mr. Henriquez is a 62 year old M Who presents with weakness and falling x5. He denies any syncope or dizziness/lightheadedness he just feels weak. He was admitted to [facility] in January and March 16 was for a cellulitis infection wound was for acute kidney injury. He was admitted to [place] in May for acute kidney injury. And was there for several weeks. He says after discharge he did well for about 3 weeks and then started feeling weaker and weaker. He is on a diuretic, torsemide. Any recent illnesses,no chest pain shortness of breath or coughing. No abdominal pain or diarrhea. He has had history of failure to thrive at home is had multiple hospitali zations. Discussions about placement at a [facility] have taken place but he has been resistant. 07/06 Feeling better, more energy. Good sleep, better spirits. No overnight events. Review of Systems: denies headache/fever/chills/nausea/vomiting/chest or abdominal pain/cough/dyspnea/diarrhea. Otherwise see above. - Constitutional Vitals: Vital Signs Temp Pulse Resp BP Pulse Ox 96.7 F L 62 18 100/75 97 07/06/18 03:52 07/05/18 10:34 07/06/18 00:38 07/06/18 03:52 07/06/18 03:52 Period Temp Pulse Resp BP Sys/Leung Pulse Ox Last 24 Hr 96.7 F-99.2 F 58-96 12 69-176/50-151 80-100 Intake and Output 07/05/18 07/06/18 07/06/18 21:59 05:59 13:59 Intake Total 1675 1800 Output Total 501 551 Balance 1174 1249 Weight 100.698 kg Intake & Output: Intake & Output 07/05/18 07/06/18 07/06/18 21:59 05:59 13:59 Intake Total 1675 1800 Output Total 501 551 Balance 1174 1249 Weight 100.698 kg Intake: IV 905 1000 Sodium Chloride 0.9% 1,000 ml @ 905 1000 150 mls/hr IV .Q6H40M [facility] Rx#: [id number] Oral 770 800 Output: Void Amount 500 550 # of times incontinent of urine 1 1 Other: Meal Dinner Percent of Meal Consumed 50% Feeding Ability Assist with Tray Set Up Urine Appearance Clear Urine Color Dark Yellow Bright Yellow Urine Odor Strong Exam: General: Awake, No acute Distress, obese Eyes/N/T: EOMI, Head/Neck: neck supple, CV: RRR, No murmurs, Pulm: Clear b/l, no wheezing/rhonchi/rales Abd: soft, nontender, +BS x4 Ext: no clubbing/cyanosis/edema, right BKA Neuro: no focal deficits, moves all extremities, known peripheral neuropathy Skin: warm/dry Medical - PN: Obj Da - Labs CBC & Chem 7: 07/06/18 03:45 07/06/18 03:45 Labs: Abnormal Lab Results 07/06/18 07/06/18 07/05/18 03:45 03:45 08:03 WBC 4.2 L RBC 3.69 L Hgb 9.9 L Hct 30.2 L RDW 18.9 H Plt Count 72 L MPV 13.0 H [place] % (Auto) 13.3 H Lymph # (Auto) 0.7 L Potassium Chloride 109 H Anion Gap BUN 79 H Creatinine 2.4 H Glucose Uric Acid 10.1 H Calcium 8.4 L Phosphorus 4.6 H Alkaline Phosphatase Triglycerides 492 H Hyaline Casts 13 H 07/05/18 07/05/18 06:45 06:45 WBC 4.0 L RBC 4.02 L Hgb 10.7 L Hct 32.7 L RDW 18.6 H Plt Count 87 L MPV 12.3 H [place] % (Auto) 13.1 H Lymph # (Auto) 1.0 L Potassium 5.3 H Chloride Anion Gap 18.0 H BUN 112 H* Creatinine 4.5 H Glucose 129 H Uric Acid Calcium Phosphorus Alkaline Phosphatase 153 H Triglycerides Hyaline Casts Meds: Medications Acetaminophen (Tylenol) 650 mg PO Q6HP PRN PRN Reason: PAIN/FEVER > 101 Albuterol/Ipratropium (Duoneb) 3 ml NEB Q4HP PRN PRN Reason: Shortness Of Breath Aspirin (Aspirin) 81 mg PO DAILY MATT Atenolol (Tenormin) 100 mg PO QAM [facility] Budesonide (Pulmicort) 2 puff INH BID [facility] Last Admin: 07/05/18 20:11 Dose: Not Given Documented by: Carbidopa/Levodopa (Sinemet Cr 25/100) 2 tab PO Q6H [facility] Last Admin: 07/06/18 05:25 Dose: 2 tab Documented by: Dextrose (Dextrose 50%) 50 ml IV UD PRN PRN Reason: Hypoglycemia Diagnostic Test (Pha) (Accu-Chek) 1 each FS ACHS [facility] Last Admin: 07/05/18 20:10 Dose: 1 each Documented by: Docusate Sodium (Colace) 100 mg PO BID [facility] Last Admin: 07/05/18 20:06 Dose: 100 mg Documented by: Donepezil HCl (Aricept) 5 mg PO DAILY [facility] Famotidine (Pepcid) 20 mg PO HS [facility] Last Admin: 07/05/18 20:06 Dose: 20 mg Documented by: Heparin Sodium (Porcine) (Heparin) 5,000 unit SQ Q12 [facility] Last Admin: 07/05/18 20:07 Dose: 5,000 unit Documented by: Hydralazine HCl (Apresoline) 0 mg IV Q2HP PRN PRN Reason: Hypertension Magnesium Sulfate (Magnesium Sulfate) 2 gm in 50 mls @ 50 mls/hr IV ONCE PRN PRN Reason: Magnesium </= 1.6 Sodium Chloride (Sodium Chloride 0.9%) 1,000 mls @ 150 mls/hr IV .Q6H40M [facility] Stop: 07/06/18 09:07 Last Admin: 07/06/18 03:00 Dose: 150 mls/hr Documented by: Insulin Glargine (Lantus) 65 unit SQ BID [facility] Last Admin: 07/05/18 20:07 Dose: 65 unit Documented by: Insulin Human Lispro (Humalog) [address] [facility]; Protocol Last Admin: 07/05/18 20:11 Dose: Not Given Documented by: Lactulose (Cephulac) 10 gm PO DAILYP PRN PRN Reason: Constipation Melatonin (Melatonin 3mg Tablet) 9 mg PO HS [facility] Last Admin: 07/05/18 20:06 Dose: 9 mg Documented by: Ondansetron HCl (Zofran) 4 mg IV Q4HP PRN PRN Reason: Nausea And Vomiting Polyethylene Glycol (Miralax) 17 gm PO DAILYP PRN PRN Reason: Constipation Pregabalin (Lyrica) 75 mg PO DAILY MATT Promethazine HCl (Phenergan) 12.5 mg MI Q6HP PRN PRN Reason: Pain Quetiapine Fumarate (Seroquel) 25 mg PO HS [facility] Last Admin: 07/05/18 20:06 Dose: 25 mg Documented by: Sertraline HCl (Zoloft) 100 mg PO [facility] Last Admin: 07/05/18 20:06 Dose: 100 mg Documented by: Simvastatin (Zocor) 2.5 mg PO HS [facility] Last Admin: 07/05/18 20:06 Dose: 2.5 mg Documented by: Sodium Chloride (Saline Flush) 10 ml IV Q8 [facility] Last Admin: 07/06/18 05:26 Dose: Not Given Documented by: Thiamine HCl (Vitamin B1) 100 mg PO DAILY [facility] Travoprost (Travatan Z Ophth Drops) 1 gtt OU [facility] Last Admin: 07/05/18 20:12 Dose: Not Given Documented by: Zolpidem Tartrate (Ambien) 5 mg PO HSP PRN PRN Reason: Insomnia Medical - PN: A/P - Time Spent With Patient Total time spent is greater than 50% in coordination of care (as documented) at patient's floor/unit and/or counseling patient: - Narrative A/P Narrative: Assessment: *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: Prerenal secondary to poor oral intake and diuretics (torsemide and HCTZ) use -Improving *Falls/debility/deconditioning/poor functional status: Secondary to underlying comorbidities and recent multiple hospitalizations *Parkinson's: Contributor to above *Failure to thrive at home: multiple hospitalizations *Diabetes w/neuropathy: on metformin and insulin *Dementia, mild: *Sarcoidosis: 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 *Obesity *Hypertension: ?atenolol, also Losartan/hctz *h/o Pancytopnia: anemia, leukopenia, thrombcytopenia *Hyperkalemia, mild: Plan: -IVF d/c today -Monitor urine output and follow-up renal status -Continue home medications except for hold his diuretics and losartan for PAT -hold torsemide upon d/c until f/u with PCP -PT/OT -CM for possible placement, pt/family resistant in past to [facility] -SSI/Basal, metformin stopped 2/2 renal fxn -clarify atenolol and sinemet -f/u with hematology for pancytopenia -ppx: heparin (monitor platelets, if drop to 50k then hold)/home ppi Medical - PN: Qual - VTE Deep Vein Thrombosis/Pulmonary Embolism Present on Admission: No
[2018-07-06] MEDS: HEPARIN 5,000 UNIT/ML VIAL SQ SCH ×2 (08:22→20:21)
[2018-07-06] MEDS: INSULIN LISPRO 1 UNIT/0.01 ML UNIT SQ SCH ×4 (08:22→20:20)
[2018-07-06] MEDS: DOCUSATE SODIUM 100 MG CAPSULE PO SCH ×2 (08:27→20:22)
[2018-07-06] MEDS ORDERED: ATENOLOL 50 MG TABLET PO SCH (09:00)
[2018-07-06] MEDS ORDERED: ASPIRIN 81 MG TAB.CHEW PO SCH (09:00)
[2018-07-06] MEDS ORDERED: DONEPEZIL 10 MG TABLET PO SCH (09:00)
[2018-07-06] MEDS ORDERED: AMANTADINE HCL 100 MG PO SCH (09:00)
[2018-07-06] MEDS ORDERED: THIAMINE 100 MG TABLET PO SCH (09:00)
[2018-07-06] MEDS: INSULIN GLARGINE, HUMAN 1 UNIT/0.01 ML SQ SCH ×2 (09:00→20:21)
[2018-07-06] MEDS ORDERED: PREGABALIN 75 MG CAPSULE PO SCH (09:00)
[2018-07-06] MEDS: BUDESONIDE 1 PUFF INHALER INH SCH (12:20)
[2018-07-06] MEDS ORDERED: hydrALAZINE 20 MG/ML VIAL IV PRN (12:43)
[2018-07-06] MEDS ORDERED: ZOLPIDEM 5 MG TABLET PO PRN (12:43)
[2018-07-06] MEDS ORDERED: DEXTROSE 50% 50 ML VIAL IV PRN (12:43)
[2018-07-06] MEDS ORDERED: PROMETHAZINE 12.5 MG SUPP.RECT PR PRN (12:43)
[2018-07-06] MEDS ORDERED: LACTULOSE 20 GM/30 ML ORAL.SOL PO PRN (12:43)
[2018-07-06] MEDS ORDERED: MAGNESIUM SULFATE 2 GM/50 ML BAG IV PRN (12:43)
[2018-07-06] MEDS ORDERED: IPRATROPIUM/ALBUTEROL 3 ML AMPUL.NEB NEB PRN (12:43)
[2018-07-06] MEDS ORDERED: POLYETHYLENE GLYCOL 3350 17 GM PACKET PO PRN (12:43)
[2018-07-06] MEDS ORDERED: ONDANSETRON 4 MG/2 ML VIAL IV PRN (12:43)
[2018-07-06] MEDS ORDERED: ACETAMINOPHEN 325 MG TABLET PO PRN (12:43)
[2018-07-06] MEDS: ENTACAPONE PO SCH ×2 (17:39→20:20)
[2018-07-06] MEDS: CARBIDOPA PO SCH ×2 (17:39→20:20)
[2018-07-06] MEDS: LEVODOPA PO SCH ×2 (17:39→20:20)
[2018-07-06] MEDS ORDERED: ATORVASTATIN 20 MG TABLET PO SCH ×2 (21:00)
[2018-07-06] MEDS ORDERED: TRAVOPROST OPHTH DROPS BOTTLE 2.5ML OU SCH (21:00)
[2018-07-06] MEDS ORDERED: MELATONIN 3 MG TABLET PO SCH (21:00)
[2018-07-06] MEDS ORDERED: FAMOTIDINE 20 MG TABLET PO SCH (21:00)
[2018-07-06] MEDS ORDERED: QUEtiapine 25 MG TABLET PO SCH (21:00)
[2018-07-06] MEDS ORDERED: SERTRALINE 100 MG TABLET PO SCH (21:00)
[2018-07-07] MEDS: BUDESONIDE 1 PUFF INHALER INH SCH ×2 (00:24→09:57)
[2018-07-07] MEDS: 0.9 % SODIUM CHLORIDE 10 ML SYRINGE IV SCH (05:48)
[2018-07-07 06:15] LABS: ALT/SGPT 6 U/l (0-40); Albumin 3.9 gm/dL (3.2-5.2); Albumin/Globulin Ratio 1.2 (1.0-2.3); Alkaline Phosphatase 132 U/L (39-117); Bilirubin,Direct < 0.2 mg/dL (0.0-0.3); Blood Urea Nitrogen 44 mg/dl (8-23); Gamma Glutamyl Transpeptidase 26 U/L (8-61); Uric Acid 8.5 mg/dL (2.5-8.0)
[2018-07-07 06:33] LABS: Basophils # (Auto) 0 K/mcL (0.0-0.3); Eosinophils # (Auto) 0.1 K/mcL (0.0-0.7); Eosinophils % (Auto) 2.4 % (0.0-7.0); Granulocytes % (Auto) 41.8 % (38.0-78.0); Lymphocytes # (Auto) 1.1 K/mcL (1.5-4.8); Lymphocytes % (Auto) 37.8 % (15.5-49.0); Mean Cell Volume 81.8 fL (80.0-100.0); Monocytes # (Auto) 0.5 K/mcL (0.1-0.9); Platelet Count 58 K/mcL (140-440); RBC 3.79 M/mcL (4.50-5.90); Red Cell Distribution Width 18.6 % (11.5-14.5)
[2018-07-07] MEDS: INSULIN LISPRO 1 UNIT/0.01 ML UNIT SQ SCH ×2 (07:48→13:18)
[2018-07-07] MEDS: DOCUSATE SODIUM 100 MG CAPSULE PO SCH (08:13)
[2018-07-07] MEDS: LEVODOPA PO SCH ×2 (08:14→13:19)
[2018-07-07] MEDS: ENTACAPONE PO SCH ×2 (08:14→13:19)
[2018-07-07] MEDS: CARBIDOPA PO SCH ×2 (08:14→13:19)
[2018-07-07] MEDS: HEPARIN 5,000 UNIT/ML VIAL SQ SCH (08:14)
[2018-07-07] MEDS: INSULIN GLARGINE, HUMAN 1 UNIT/0.01 ML SQ SCH (08:15)
[2018-07-07] MEDS ORDERED: ASPIRIN 81 MG TAB.CHEW PO SCH (09:00)
[2018-07-07] MEDS ORDERED: THIAMINE 100 MG TABLET PO SCH (09:00)
[2018-07-07] MEDS ORDERED: DONEPEZIL 10 MG TABLET PO SCH (09:00)
[2018-07-07] MEDS ORDERED: PREGABALIN 75 MG CAPSULE PO SCH (09:00)
--- NOTE | 2018-07-07 11:48 | Discharge Summary ---
Medical - DS: Prov Patient information: Note initiated : 07/07/18 at 11:36 am Service Date, if different from initiated Date: [] Patient: Abdelrahman Henriquez 62 y/o M admitted on 07/05/18 for Falls x 2 Tonight. Chief Complaint: [] Date of admission: 07/05/18 10:15 Discharge date: 07/07/18 Primary care physician: Sada Bernard Consults: 07/05/18 08:16 Consult to Physician [CONS] Stat Comment: Consulting Provider: Adi Briggs Reason For Exam: Physician to Consult Discharging clinician: Philip Gonzalez Medical - DS: Meds - Discharge Medications Active and Home Medications: Home Medications amantadine HCl 100 mg tablet 100 mg PO QDAY tab 11/02/16 [History Confirmed 07/05/18 Last Taken 03/28/18 09:00] aspirin 81 mg tablet 81 mg PO QDAY 11/02/16 [History Confirmed 07/05/18 Last Taken 03/28/18 09:00] atenolol 50 mg tablet 100 mg PO QAM tab 11/02/16 [History Confirmed 07/05/18 Last Taken 03/28/18 09:00] budesonide 90 mcg/actuation breath activated powder inhaler 2 inh INHALATION BID 11/02/16 [History Confirmed 07/05/18 Last Taken 03/28/18 21:00] metformin 500 mg tablet 1,000 mg PO BID 11/02/16 [History Confirmed 07/05/18 Last Taken 03/28/18 21:00] omeprazole 20 mg tablet,delayed release 20 mg PO BID 11/02/16 [History Confirmed 07/05/18 Last Taken 03/28/18 21:00] quetiapine 25 mg tablet 25 mg PO HS tab 11/02/16 [History Confirmed 07/05/18 Last Taken 03/28/18 21:00] sertraline 100 mg tablet 100 mg PO QDAY 11/02/16 [History Confirmed 07/05/18 Last Taken 03/28/18 09:00] travoprost 0.004 % eye drops 1 drp OPHTHALMIC QPM 11/02/16 [History Confirmed 07/05/18 Last Taken 03/28/18 21:00] Donepezil [Aricept] 5 mg PO DAILY 04/06/17 [History Confirmed 07/05/18 Last Taken 03/28/18 09:00] Acetaminophen [Tylenol] 650 mg PO Q6HP PRN tablet 04/11/17 [Rx Confirmed 07/05/18 Last Taken 02/02/18 19:00] Insulin Lispro [Humalog] 0 - 6 units SQ ACHS unit 04/11/17 [Rx Confirmed 07/05/18 Last Taken 03/28/18 21:00] Melatonin 10 mg PO HS 01/06/18 [History Confirmed 07/05/18 Last Taken 03/28/18 21:00] Pregabalin [Lyrica] 150 mg PO BID 01/06/18 [History Confirmed 07/05/18 Last Taken 03/28/18 12:00] Pregabalin [Lyrica] 300 mg PO HS 01/06/18 [History Confirmed 07/05/18 Last Taken 03/28/18 21:00] Acetaminophen W/Codeine #3 [Tylenol #3] 1 - 2 tab PO QHS PRN #20 tab 02/06/18 [Rx Confirmed 07/05/18 Last Taken 03/28/18 21:00] Zolpidem [Ambien] 5 mg PO HSP PRN #30 tab 02/06/18 [Rx Confirmed 07/05/18 Last Taken 03/28/18 21:00] insulin glargine (U-100) 100 unit/mL (3 mL) subcutaneous pen 65 unit SUB-Q BID ml 06/23/18 [History Confirmed 07/05/18 Last Taken Unknown] insulin lispro (U- 100) 100 unit/mL subcutaneous solution See Rx Instructions SUB-Q .COMPLEX 06/23/18 [History Confirmed 07/05/18 Last Taken Unknown] simvastatin 5 mg tablet 2.5 mg PO QHS tab 06/23/18 [History Confirmed 07/05/18 Last Taken Unknown] Losartan/Hydrochlorothiazide [Losartan-Hctz 100-12.5 mg Tab] 1 tab PO DAILY 07/05/18 [History Confirmed 07/05/18 Last Taken Unknown] Thiamine [Vitamin B1] 100 mg PO DAILY 07/05/18 [History Confirmed 07/05/18 Last Taken Unknown] Torsemide [Demadex] 20 mg PO DAILY 07/05/18 [History Confirmed 07/05/18 Last Taken Unknown] Carbidopa/Levodopa/Entacapone [Carbidopa-Levodopa 50 mg-Enta] 1 tab PO QID 07/06/18 [History Confirmed 07/06/18 Last Taken Unknown] Ketorolac Tromethamine [Acular] 1 drp OU TID 07/06/18 [History Confirmed 07/06/18 Last Taken Unknown] Medical - DS: Hosp Hospital course: Mr. Henriquez is a 62 year old M Who presents with weakness and falling x5. He denies any syncope or dizziness/lightheadedness he just feels weak. He was admitted to [facility] in January and March 1 was for a cellulitis infection wound was for acute kidney injury. He was admitted to [place] in May for acute kidney injury. And was there for several weeks. He says after discharge he did well for about 3 weeks and then started feeling weaker and weaker. He is on a diuretic, torsemide. Any recent illnesses,no chest pain shortness of breath or coughing. No abdominal pain or diarrhea. He has had history of failure to thrive at home is had multiple hospitalizatio ns. Discussions about placement at a [facility] have taken place but he has been resistant. 07/06 Feeling better, more energy. Good sleep, better spirits. No overnight events. 07/07 Patient doing much better, no acute issues, he was able to tolerate all his breakfast without any issues, his creatinine continued to improve, is 1.3 today. He seems to be in good spirits stable for discharge. We will stop his torsemide at the time of discharge. He will continue all his other medications. He will be needed to be seen by his primary care provider in a week's time and a repeat blood panel should be done to evaluate his kidney function The patient has pancytopenia needs to be followed up by a rn transport He has refused placement multiple time,it seems he was at [place] admitted and discharged to SNF from where he signed out AMA and went back home. 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 *Falls/debility/deconditioning/poor functional status: Secondary to underlying comorbidities and recent multiple hospitalizations -Home health ordered *Parkinson's: -continue home meds *Diabetes w/neuropathy: -no changes made to [facility] home meds *Dementia, mild: -stable, *Sarcoidosis: -was supposed to establish with clinical provider trainer *Hypertension: ?atenolol, also Losartan/hctz -continue atenolol,losartan-hctz *h/o Pancytopnia: anemia, leukopenia, thrombcytopenia, -follow up with rn transport Discharge diagnosis: Weakness/Acute Kidney Injury - Time Spent with Patient Total time spent providing and/or coordinating discharge services: Greater than 30 minutes Medical - DS: Exam - Constitutional Vitals: Vital Signs Temp Pulse Resp BP Pulse Ox 07/07/18 06:40 97.7 F 72 14 145/84 97 07/07/18 04:00 97.7 F 70 18 141/84 98 07/06/18 23:46 98.4 F 70 16 130/75 96 07/06/18 19:43 98 F 66 20 137/71 96 07/06/18 12:00 98.3 F 67 18 124/80 97 Intake and Output 07/06/18 07/07/18 07/07/18 21:59 05:59 13:59 Intake Total 700 200 Output Total 850 1150 Balance -850 -450 200 Intake: Oral 700 200 Output: Void Amount 850 1150 Other: Meal Breakfast Percent of Meal Consumed 100% Urine Appearance Clear Urine Color Bright Yellow [place] Urine Odor Normal # Voids 1 Weight 223 lb 8 oz Additional comments: Constitutional; Afebrile, cooperative, alert, not in distress. Neck- Midline trachea, supple Respiratory system: Air Entry equal on both sides, No crackles or wheezing, no rhonchi. CVS- Rate rhythm regular, S1,S2 heard, no gallop, no rub. Abdomen- Soft nontender abdomen, no organomegaly, no tenderness, no guarding or rigidity, PULP PILER- AOOx2, moving all extremities, no gross focal deficit noted. Medical - DS: Data Labs on day of discharge: Labs from last 24 hours 07/07/18 07/07/18 03:50 03:50 WBC 2.9 L RBC 3.79 L Hgb 10.2 L Hct 31.0 L MCV 81.8 MCH 27.0 MCHC 33.0 RDW 18.6 H Plt Count 58 L MPV 11.7 H Gran % 41.8 Lymph % (Auto) 37.8 [place] % (Auto) 17.0 H Eos % (Auto) 2.4 Baso % (Auto) 1.0 Gran # 1.2 L Lymph # (Auto) 1.1 L [place] # (Auto) 0.5 Eos # (Auto) 0.1 Baso # (Auto) 0 Sodium 145 Potassium 4.3 Chloride 113 H Carbon Dioxide 23 Anion Gap 9.0 BUN 44 H Creatinine 1.3 H GFR Calculation 59 Glucose 74 Uric Acid 8.5 H Calcium 8.7 Phosphorus 2.5 L Magnesium 2.0 Total Bilirubin 0.5 Direct Bilirubin < 0.2 GGT 26 AST 13 ALT 6 Alkaline Phosphatase 132 H Lactate Dehydrogenase 219 Total Protein 7.2 Albumin 3.9 Globulin 3.3 Albumin/Globulin Ratio 1.2 Triglycerides 547 H Medical - DS: A/P - Patient/Caregiver Discharge Instructions Activity: as per physical therapy, increase activity as tolerated Diet: Low Sodium (2gm), Cardiac, Consistent Carbohydrate Additional Instructions: Please avoid salt in your diet Do not take Torsemide (water pill for now) Keep your self well hydrated Avoid alcohol Follow up with your PCP in 1 week, make sure your PCP checks your Kidney function and adjusts your medications as needed NO other changes made to your chronic home medication list Follow up with [employer] in 2-4 weeks/ Dr Abebe Go to the ER if worsening condition, chest pain, fever shortness of breath or any other acute concern. - Follow up Plan Follow up with: Sada Bernard ARNP [Primary Care Provider] - Disposition: Home Health Service Prognosis: Fair Rehab Potential: Fair I certify that the patient requires SNF services: No Overall status at discharge: patient is progressing back to baseline Medical - DS: Qual - VTE Deep Vein Thrombosis/Pulmonary Embolism Present on Admission: No
== END 2018-07-07 14:00 | disposition home health service (06) | DRG 684 ==
LOC: ED 05:53 → ICU 10:15 → MEDSUR 07-06 16:26
PROVIDERS: ADMIT Internal Medicine; ATTEND Internal Medicine